=== PATIENT | female | born 1995 | race Caucasian/White ===

== ENCOUNTER 2019-01-17 04:12 | Emergency (ER) | payer OTHER, SELFPAY ==
[2019-01-17 04:16] VITALS: BP 148/94; PULSE 91; RESP 18; TEMP 36.7; O2SAT 99
--- NOTE | 2019-01-17 04:22 | W.ED.GENAD ---
Discharge Plan Disposition Patient Disposition: HOME Condition: Good Discharge Details Chief Complaint: Abd Prob Clinical Impression: Upper abdominal pain Primary Care Provider: BJ SHIELDS ED Provider: Artemio See [place] Meds and New Rx's Prescriptions: New sucralfate [Carafate] 100 mg/mL suspension 10 ml PO QID Qty: 420 RF: 0 Continued norethindrone acetate 5 MG tablet 5 mg PO HS RF: 0 ergocalciferol (vitamin D2) [Vitamin D2] 50,000 UNIT capsule 50,000 units PO .TWICE WEEKLY RF: 0 tramadol 50 MG tablet 50 mg PO TID PRNRF: 0 methylphenidate HCl 10 MG tablet 10 mg PO BID RF: 0 methylphenidate HCl [Ritalin] 20 MG tablet 40 mg PO DAILY RF: 0 celecoxib [Celebrex] 200 mg Capsule 200 mg PO DAILY RF: 0 gabapentin 300 mg Capsule 300 mg PO DAILY RF: 0 famotidine 20 mg Tablet 40 mg PO DAILY RF: 0 esomeprazole magnesium [Nexium] 20 mg Capsule,Delayed Release(Dr/Ec) 40 mg PO DAILY RF: 0 Discharge Instructions Instructions: Abdominal Pain (ED) Additional Instructions: Avoid taking other NSAIDs on top of the Celebrex. Use acetaminophen or your Ultram as needed for joint pain. Continue other medications. Try Carafate over the weekend and follow-up with primary care next week if not significantly better. Return to ED for fever, vomiting, black stool, worsening/persistent abdominal pain Referrals: BJ SHIELDS [Primary Care Provider] - Medical Decision Making Patient with onset of upper abdominal pain within the last couple of hours. Nausea but no vomiting or diarrhea. Mild epigastric tenderness but with distraction has benign abdomen. Previous work-up for abdominal pain including CAT scans, gastric emptying, small bowel follow-through in the past though nothing recently. Reports history of ulcers taking ihki-gvv-[id number] medications as well as chronic use of nonsteroidals. She appears to be in no significant distress. Will try GI cocktail. Patient has some relief with GI cocktail. Still complains of discomfort. Reports that it feels similar to when she had ulcers. States she only came here because the pharmacist told her that if she develops abdominal pain she had to come to ED. Pain has only been present for a couple of hours. She looks to be completely comfortable. She takes PPI and histamine dm already. She is asking if there is anything else that can be done. She reports that she has to take at least the Celebrex because of arthritis. Can add Carafate and see how she does over the weekend. Follow-up with primary care next week. Return to ED for fever, vomiting, black stool, persistent and worsening abdominal pain. HPI General Mode of arrival: ambulatory. Date/Time Provider Initiated Documentation: 01/17/19 04:20. Limitations to Documentation: no limitations. Information obtained by: patient, RN notes reviewed and old records reviewed. HPI Narrative: Patient presents to the ED with complaint of upper abdominal pain that started a few hours ago. She has nausea but no vomiting or diarrhea. She had no fever that she is aware of. She takes Celebrex on a regular basis and has been taking it for some time. She reports history of ulcers for which she takes wqve-jfl-txjnoqc medication. She took Aleve last night as well because of a flareup of her knee pain. She reports that the pharmacist told her because she was taking Celebrex if she did take Aleve and developed abdominal pain she should come to the emergency department. She has a history of abdominal problems and chronic pain. She does report trying some Tums. She denies having chest pain or difficulty breathing. Related Data Home Medications Medication Instructions Recorded Confirmed norethindrone acetate 5 mg PO HS 03/15/13 01/17/19 ergocalciferol (vitamin D2) 50,000 units PO .TWICE WEEKLY 12/20/15 01/17/19 [Vitamin D2] methylphenidate HCl 10 mg PO BID 08/20/17 01/17/19 methylphenidate HCl [Ritalin] 40 mg PO DAILY 08/20/17 01/17/19 tramadol 50 mg PO TID PRN 03/29/18 01/17/19 celecoxib [Celebrex] 200 mg PO DAILY 01/17/19 01/17/19 esomeprazole magnesium [Nexium] 40 mg PO DAILY 01/17/19 01/17/19 famotidine 40 mg PO DAILY 01/17/19 01/17/19 gabapentin 300 mg PO DAILY 01/17/19 01/17/19 sucralfate [Carafate] 10 ml PO QID #420 ml 01/17/19 Previous Rx's Medication Instructions Recorded sucralfate [Carafate] 10 ml PO QID #420 ml 01/17/19 Allergies Allergy/AdvReac Type Severity Reaction Status Date / Time sumatriptan [From Imitrex] Allergy Intermediate arm,shoulder Unverified 04/01/18 06:58 pain-head stinging zolpidem tartrate Allergy Intermediate felt Unverified 04/01/18 06:58 [From Ambien] intoxicated cefaclor [From Ceclor] Allergy Unknown unknown Unverified 04/01/18 06:58 bupropion AdvReac Intermediate Other (See Verified 04/01/18 07:04 Comment) amoxicillin trihydrate AdvReac Mild Diarrhea Unverified 04/01/18 06:58 [From Augmentin] potassium clavulanate AdvReac Mild Diarrhea Unverified 04/01/18 06:58 [From Augmentin] General Stated Complaint: Abd Prob KARLO: 3 Review of Systems Review of Systems As documented in HPI otherwise negative as below. Const: no fever, chills, weakness Resp: no cough, SOB, pleuritic pain CV: no CP, diaphoresis, edema, syncope GI: positive abdominal pain, nausea; no vomiting, diarrhea Neuro: no headache, numbness, focal weakness, confusion PFSH Medical History GERD (gastroesophageal reflux disease) (Chronic) Chronic low back pain Depression Endometriosis Lactose intolerance Posttraumatic stress disorder Primary fibromyalgia syndrome Vitamin D deficiency Surgical History Arthroplasty of knee Colonoscopy - MAC Diagnostic Laproscopy Tonsillectomy and adenoidectomy Family History Mother Personal history of malignant neoplasm Social History Smoking/Tobacco Use Status: Current every day Tobacco Type: cigarettes Alcohol Intake: never Drug use: Never Substance use type: does not use Do you feel safe at home: Yes Do you feel safe in your relationship?: Yes Exam Narrative Exam Narrative: Vitals: afebrile, elevated blood pressure Const: WDWN female in NAD. HEENT: NC/AT. Normal facial exam. Eyes: Normal conjunctiva and sclera. Neck: Supple. Trachea midline. Lungs: Normal respiratory effort. Lungs are clear. Cor: RRR without murmur/gallop. Good radial pulses. GI: Soft and non-distended. Mild epigastric tenderness without guarding or rebound. No RUQ tenderness. No tenderness with distraction. Neuro: A+O x 3. CN grossly in tact. Good strength and no focal deficit. Course Vital Signs Temperature 98.1 F 01/17/19 04:16 Pulse 91 H 01/17/19 04:16 Respiratory Rate 18 01/17/19 04:16 Blood Pressure 148/94 H 01/17/19 04:16 Pulse Oximetry 99 01/17/19 04:16 Temperature 98.1 F 01/17/19 04:16 Temperature Source Tympanic 01/17/19 04:16 Pulse 91 H 01/17/19 04:16 Respiratory Rate 18 01/17/19 04:16 Respiratory Effort 01/17/19 04:20 Blood Pressure 148/94 H 01/17/19 04:16 Blood Pressure Position Sitting 01/17/19 04:16 Pulse Oximetry 99 01/17/19 04:16 Oxygen Delivery Method Room Air 01/17/19 04:16 Oxygen Flow Rate 0 01/17/19 04:16 Pain Level 7 01/17/19 04:16
--- NOTE | 2019-01-17 04:25 | ED.GENADUL_ITS ---
Discharge Plan Disposition Patient Disposition: HOME Condition: Good Discharge Details Chief Complaint: Abd Prob Clinical Impression: Upper abdominal pain Primary Care Provider: BJ SHIELDS ED Provider: Artemio See [place] Meds and New Rx's Prescriptions: New sucralfate [Carafate] 100 mg/mL suspension 10 ml PO QID Qty: 420 RF: 0 Continued norethindrone acetate 5 MG tablet 5 mg PO HS RF: 0 ergocalciferol (vitamin D2) [Vitamin D2] 50,000 UNIT capsule 50,000 units PO .TWICE WEEKLY RF: 0 tramadol 50 MG tablet 50 mg PO TID PRNRF: 0 methylphenidate HCl 10 MG tablet 10 mg PO BID RF: 0 methylphenidate HCl [Ritalin] 20 MG tablet 40 mg PO DAILY RF: 0 celecoxib [Celebrex] 200 mg Capsule 200 mg PO DAILY RF: 0 gabapentin 300 mg Capsule 300 mg PO DAILY RF: 0 famotidine 20 mg Tablet 40 mg PO DAILY RF: 0 esomeprazole magnesium [Nexium] 20 mg Capsule,Delayed Release(Dr/Ec) 40 mg PO DAILY RF: 0 Discharge Instructions Instructions: Abdominal Pain (ED) Additional Instructions: Avoid taking other NSAIDs on top of the Celebrex. Use acetaminophen or your Ultram as needed for joint pain. Continue other medications. Try Carafate over the weekend and follow-up with primary care next week if not significantly better. Return to ED for fever, vomiting, black stool, worsening/persistent abdominal pain Referrals: BJ SHIELDS [Primary Care Provider] - Medical Decision Making Patient with onset of upper abdominal pain within the last couple of hours. Nausea but no vomiting or diarrhea. Mild epigastric tenderness but with d istraction has benign abdomen. Previous work-up for abdominal pain including CAT scans, gastric emptying, small bowel follow-through in the past though nothing recently. Reports history of ulcers taking hhxj-nep-tjcncge medications as well as chronic use of nonsteroidals. She appears to be in no significant distress. Will try GI cocktail. Patient has some relief with GI cocktail. Still complains of discomfort. Reports that it feels similar to when she had ulcers. States she only came here because the pharmacist told her that if she develops abdominal pain she had to come to ED. Pain has only been present for a couple of hours. She looks to be completely comfortable. She takes PPI and histamine dm already. She is asking if there is anything else that can be done. She reports that she has to take at least the Celebrex because of arthritis. Can add Carafate and see how she does over the weekend. Follow-up with primary care next week. Return to ED for fever, vomiting, black stool, persistent and worsening abdominal pain. HPI General Mode of arrival: ambulatory . Date/Time Provider Initiated Documentation: 01/17/19 04:20 . Limitations to Documentation: no limitations . Information obtained by: patient, RN notes reviewed and old records reviewed . HPI Narrative: Patient presents to the ED with complaint of upper abdominal pain that started a few hours ago. She has nausea but no vomiting or diarrhea. She had no fever that she is aware of. She takes Celebrex on a regular basis and has been taking it for some time. She reports history of ulcers for which she takes xsuh-lka-bcaiovw medication. She took Aleve last night as well because of a flareup of her knee pain. She reports that the pharmacist told her because she was taking Celebrex if she did take Aleve and developed abdominal pain she should come to the emergency department. She has a history of abdominal problems and chronic pain. She does report trying some Tums. She denies having chest pain or difficulty breathing. Related Data Home Medications Medication Instructions Recorded Confirmed norethindrone acetate 5 mg PO HS 03/15/13 01/17/19 ergocalciferol (vitamin D2) 50,000 units PO .TWICE WEEKLY 12/20/15 01/17/19 [Vitamin D2] methylphenidate HCl 10 mg PO BID 08/20/17 01/17/19 methylphenidate HCl [Ritalin] 40 mg PO DAILY 08/20/17 01/17/19 tramadol 50 mg PO TID PRN 03/29/18 01/17/19 celecoxib [Celebrex] 200 mg PO DAILY 01/17/19 01/17/19 esomeprazole magnesium [Nexium] 40 mg PO DAILY 01/17/19 01/17/19 famotidine 40 mg PO DAILY 01/17/19 01/17/19 gabapentin 300 mg PO DAILY 01/17/19 01/17/19 sucralfate [Carafate] 10 ml PO QID #420 ml 01/17/19 Previous Rx's Medication Instructions Recorded sucralfate [Carafate] 10 ml PO QID #420 ml 01/17/19 Allergies Allergy/AdvReac Type Severity Reaction Status Date / Time sumatriptan [From Imitrex] Allergy Intermediate arm,shoulder Unverified 04/01/18 06:58 pain-head stinging zolpidem tartrate Allergy Intermediate felt Unverified 04/01/18 06:58 [From Ambien] intoxicated cefaclor [From Ceclor] Allergy Unknown unknown Unverified 04/01/18 06:58 bupropion AdvReac Intermediate Other (See Verified 04/01/18 07:04 Comment) amoxicillin trihydrate AdvReac Mild Diarrhea Unverified 04/01/18 06:58 [From Augmentin] potassium clavulanate AdvReac Mild Diarrhea Unverified 04/01/18 06:58 [From Augmentin] General Stated Complaint: Abd Prob KARLO: 3 Review of Systems Review of Systems As documented in HPI otherwise negative as below. Const: no fever, chills, weakness Resp: no cough, SOB, pleuritic pain CV: no CP, diaphoresis, edema, syncope GI: positive abdominal pain, nausea; no vomiting, diarrhea Neuro: no headache, numbness, focal weakness, confusion PFSH Medical History GERD (gastroesophageal reflux disease) (Chronic) Chronic low back pain Depression Endometriosis Lactose intolerance Posttraumatic stress disorder Primary fibromyalgia syndrome Vitamin D deficiency Surgical History Arthroplasty of knee Colonoscopy - MAC Diagnostic Laproscopy Tonsillectomy and adenoidectomy Family History Mother Personal history of malignant neoplasm Social History Smoking/Tobacco Use Status: Current every day Tobacco Type: cigarettes Alcohol Intake: never Drug use: Never Substance use type: does not use Do you feel safe at home: Yes Do you feel safe in your relationship?: Yes Exam Narrative Exam Narrative: Vitals: afebrile, elevated blood pressure Const: WDWN female in NAD. HEENT: NC/AT. Normal facial exam. Eyes: Normal conjunctiva and sclera. Neck: Supple. Trachea midline. Lungs: Normal respiratory effort. Lungs are clear. Cor: RRR without murmur/gallop. Good radial pulses. GI: Soft and non-distended. Mild epigastric tenderness without guarding or rebound. No RUQ tenderness. No tenderness with distraction. Neuro: A+O x 3. CN grossly in tact. Good strength and no focal deficit. Course Vital Signs Temperature 98.1 F 01/17/19 04:16 Pulse 91 H 01/17/19 04:16 Respiratory Rate 18 01/17/19 04:16 Blood Pressure 148/94 H 01/17/19 04:16 Pulse Oximetry 99 01/17/19 04:16 Temperature 98.1 F 01/17/19 04:16 Temperature Source Tympanic 01/17/19 04:16 Pulse 91 H 01/17/19 04:16 Respiratory Rate 18 01/17/19 04:16 Respiratory Effort 01/17/19 04:20 Blood Pressure 148/94 H 01/17/19 04:16 Blood Pressure Position Sitting 01/17/19 04:16 Pulse Oximetry 99 01/17/19 04:16 Oxygen Delivery Method Room Air 01/17/19 04:16 Oxygen Flow Rate 0 01/17/19 04:16 Pain Level 7 01/17/19 04:16
[2019-01-17 05:09] VITALS: BP 148/94; PULSE 91; RESP 18; O2SAT 99
== END 2019-01-17 05:09 | disposition home or self-care (01) ==
PROVIDERS: Emergency Provider Emergency Medicine; PCP Internal Medicine
DX: R10.10 Upper abdominal pain, unspecified (principal); R11.0 Nausea
CPT/HCPCS: 99283

== ENCOUNTER 2019-05-09 15:01 | Inpatient (IN) | payer OTHER, SELFPAY ==
[2019-05-09 15:04] VITALS: BP 123/83; PULSE 94; RESP 16; TEMP 36.4; O2SAT 99
[2019-05-09 16:10] LABS: Bilirubin Negative (Negative); Blood Moderate (Negative); Clarity Clear (Clear); Glucose Negative (Negative); Ketones 40 mg/dL (Negative); Leukocyte Esterase Negative (Negative); Nitrite Negative (Negative); Specific Gravity 1.015 (1.005-1.025); Urobilinogen 0.2 EU/dL (Up TO 0.2)
[2019-05-09 16:12] LABS: HCT 42.3 % (36.0-46.0); HGB 14.6 g/dL (12.0-15.5); Mean Corp. HGB Concentration 34.5 g/dL (32.0-36.0); Mean Corpuscular Hemoglobin 32.2 pg (27.0-33.0); Mean Corpuscular Volume 93.4 fL (80-95); Mean Platelet Volume 11.2 fL (8.0-11.0); Platelet Count 287 x1000/uL (130-400); RBC 4.53 m/cumm (4.00-5.20); RBC Distribution Width 12.6 % (11.7-14.6); White Blood Cell Count 18.05 k/cumm (4.4-10.8)
[2019-05-09 16:18] LABS: Bacteria Rare HPF (Negative); C & S Indicated? No; Casts Negative LPF (Negative); Crystals Negative HPF (Negative); Epithelial Cells Rare HPF (Negative); Mucus Negative (Negative); Other Cells Negative (Negative); WBC Negative HPF (0-5)
[2019-05-09 16:25] LABS: ALT 26 U/L (14-59); AST 16 U/L (15-37); Albumin 4.2 g/dL (3.4-5.0); Alkaline Phosphatase 60 U/L (46-116); Anion Gap 10.1 mmol/L (3-11); BUN 8 mg/dL (7-18); Bilirubin, Total 0.4 mg/dL (0.2-1.0); CO2 26.9 mmol/L (21.0-32.0); CREATININE 0.79 mg/dL (0.55-1.02); Calcium 9.1 mg/dL (8.5-10.1); Chloride 102 mmol/L (98-107); Glucose 86 mg/dL (70-100); Potassium 3.4 mmol/L (3.5-5.1); Sodium 139 mmol/L (136-145); Total Protein 8.1 g/dL (6.4-8.2)
--- NOTE | 2019-05-09 16:25 | DI.CT_ITS ---
SYMPTOM/DIAGNOSIS: ABD PAIN ABDOMEN AND PELVIC CT: CT examination of the abdomen and pelvis was performed with a bolus infusion of 79 cc's of Omnipaque 350 and ingestion of dilute barium. Images obtained through the lung bases are unremarkable. Liver, spleen and pancreas appear intact. Gallbladder and bile ducts are unremarkable. Adrenals and kidneys are unremarkable with incidental apparent small left renal cysts. No urinary tract obstruction. Tiny non obstructing left renal calculus may be present. Abdominal aorta is of normal diameter and no major vascular abnormality is seen. No abdominal or pelvic adenopathy. No significant abdominal wall hernia is seen. STERILIZATION TECH structures appear intact. No evidence of appendicitis. The terminal ileum appears normal. There is marked edema of the wall of the colon from mid transverse colon to the rectum. The findings are suggestive of colitis, of uncertain etiology. Ulcerative colitis not excluded with the absence of skip lesions noted. CONCLUSION: Findings consistent with colitis, no evidence of perforation or obstruction.
[2019-05-09] MEDS: Ondansetron 4 MG/2 ML VIAL IVP ×2 (16:40→22:58)
[2019-05-09 16:48] LABS: Lipase 152 U/L (73-393)
[2019-05-09] MEDS: Omnipaque 350 MG/ML 100 ML BTL IJ (16:58)
[2019-05-09] MEDS: ACETAMINOPHEN 1,000 MG/100 ML BTL 400 MG IVPB (17:00)
--- NOTE | 2019-05-09 17:07 | W.ED.GENAD ---
Discharge Plan Discharge Details Chief Complaint: Abd Prob Admit Date/Time: 05/09/19 19:07 Admit Provider: Maury Petty Attending Provider: Maury Petty Primary Care Provider: Nora Wisdom ED Provider: Rhoda Doty Medical Decision Making Patient presents for 4 days of abdominal pain. Patient reports escalation of abdominal pain associated with stool changes specifically diarrhea associated with blood. Patient reports 2 days of bloody bowel movements. Patient does report mild decrease in blood noted today. Patient reports mild fatigue present. Patient is drinking by mouth. On exam patient does have diffuse abdominal pain. She does have a history of endometriosis for which she has been managed with control pills. Patient does report noncompliance with her control pills as well as narcolepsy medication. On exam patient is noted to have an elevated white count of 18,000. Patient also noted to have moderate to severe colitis. I did discuss this with surgeon on-call who does feel this is mostly medical complaint and unlikely to be a surgical issue. I spoke with the hospitalist regarding this case for consideration for admission for management of inflammatory versus infectious colitis. Likely patient will ultimately need outpatient follow-up with GI specialist. Stool cultures ordered by the hospitalist. I did offer this patient did admission to the hospital versus discharge home for attempted oral management however given patient's elevated white count,abdominal exam and preference we will keep patient in the hospital for colitis management. HPI General Date/Time Provider Initiated Documentation: 05/09/19 15:14. HPI Narrative: Patient presents for 4 days of abdominal pain. Patient reports began as a mild abdominal pain in the lower abdomen which is now escalated over the last 4 days worsening today. Denies radiation of pain. Reports fairly diffuse pain now more localized in the lower abdomen bilaterally. Patient reports associated with mild nausea. No vomiting. Patient does report diarrhea x2 some blood noted in the bowel movement increased yesterday less than today. Patient does report mild fatigue but does have a history of narcolepsy and is noncompliant with her medication today. Patient also has a history of endometriosis for which she has had surgery approximately 10 years ago and is chronically on control pills to manage. Patient denies vaginal discharge or bleeding. Patient denies changes in urination, specifically denies dysuria or hematuria. Patient does report mild urgency. Patient denies headache, dizziness. Patient was to see her PCP today but waited so long and they are behind therefore she came to the emergency room. Related Data Home Medications Medication Instructions Recorded Confirmed norethindrone acetate 5 mg PO HS 03/15/13 05/09/19 ergocalciferol (vitamin D2) 50,000 units PO .TWICE WEEKLY 12/20/15 05/09/19 [Vitamin D2] methylphenidate HCl 10 mg PO BID 08/20/17 05/09/19 methylphenidate HCl [Ritalin] 40 mg PO DAILY 08/20/17 05/09/19 tramadol 50 mg PO TID PRN 03/29/18 05/09/19 celecoxib [Celebrex] 200 mg PO DAILY 01/17/19 01/17/19 esomeprazole magnesium [Nexium] 40 mg PO BID 01/17/19 05/09/19 famotidine 40 mg PO BID 01/17/19 05/09/19 gabapentin 300 mg PO HS 01/17/19 05/09/19 meloxicam 7.5 mg PO HS 05/09/19 05/09/19 Allergies Allergy/AdvReac Type Severity Reaction Status Date / Time sumatriptan [From Imitrex] Allergy Intermediate arm,shoulder Unverified 05/09/19 15:08 pain-head stinging zolpidem tartrate Allergy Intermediate felt Unverified 05/09/19 15:08 [From Ambien] intoxicated cefaclor [From Ceclor] Allergy Unknown unknown Unverified 05/09/19 15:08 bupropion AdvReac Intermediate Other (See Verified 05/09/19 15:08 Comment) amoxicillin trihydrate AdvReac Mild Diarrhea Unverified 05/09/19 15:08 [From Augmentin] potassium clavulanate AdvReac Mild Diarrhea Unverified 05/09/19 15:08 [From Augmentin] General Stated Complaint: Abd Prob KARLO: 3 Review of Systems Review of Systems CONSTITUTIONAL: The patient denies fevers, chills. EYES: Denies vision changes, blurry vision, or eye pain. ENT: Denies hearing changes, tinnitus, vertigo, sore throat. CARDIAC: Denies chest pain, SOB. RESPIRATORY: Denies cough, sputum. Denies difficulty breathing. GASTROINTESTINAL: Moderate abdominal pain, mild diarrhea, mild nausea. GENITOURINARY: Denies dysuria, or frequency of urination. MUSCULOSKELETAL: Denies Joint pain, gait changes. NEUROLOGIC: Denies headaches, Denies focal weakness. Denies numbness. INTEGUMENT: Denies rashes. PSYCHIATRIC: Denies behavior changes. Denies anxiety or depression. ENDOCRINOLOGY: Denies fatigue. PSYCHIATRY: Denies depression, agitation or anxiety [facility] Medical History Chronic low back pain Depression Endometriosis GERD (gastroesophageal reflux disease) (Chronic) Lactose intolerance Posttraumatic stress disorder Primary fibromyalgia syndrome Vitamin D deficiency Surgical History Arthroplasty of knee Colonoscopy - MAC Diagnostic Laproscopy Tonsillectomy and adenoidectomy Family History Mother Personal history of malignant neoplasm Social History Smoking/Tobacco Use Status: Current every day Tobacco Type: cigarettes Alcohol Intake: never Drug use: Occasionally Substance use type: marijuana Do you feel safe at home: Yes Do you feel safe in your relationship?: Yes Exam Narrative Exam Narrative: CONST: Healthy appearing patient, in no acute distress. Well hydrated. Alert and alert. HENMT: Head nomocephalic, normal to inspection. Atraumatic. Hearing grossly normal. EYES: General normal appearance. Alignment normal. Eyelids normal. Conjunctiva normal. NECK: Normal visual inspection. FROM. Trachea midline. No Midline tenderness. CHEST: Normal insepection of the chest. AB: Patient with abdominal tenderness noted diffuse, moderate tenderness in lower abdomen.. No obvious guarding or distention. Patient does have bowel sounds present in all 4 quadrants. RESP: Normal respiratory effort. Speaking full sentences. No cough. No audible wheezing. No retractions. CARDIO: No JVD. MUSCULOSKELETAL: Normal Gait. FROM of all extremities. SKIN: Normal. Dry. No rashes. NEURO: Alert and awake. Speech clear. PSYCH: Normal affect. Cooperative. GI Inspection: non-distended and no obesity Palpation: soft, no guarding, not rigid and tender Auscultation: normal bowel sounds Course Vital Signs Temperature 36.4 C L 05/09/19 15:04 Pulse 94 H 05/09/19 15:04 Respiratory Rate 16 05/09/19 15:04 Blood Pressure 123/83 05/09/19 15:04 Pulse Oximetry 99 05/09/19 15:04 Temperature 36.4 C L 05/09/19 15:04 Temperature Source Temporal Artery Scan 05/09/19 15:04 Pulse 94 H 05/09/19 15:04 Respiratory Rate 16 05/09/19 15:04 Respiratory Effort Non-Labored 05/09/19 15:07 Blood Pressure 123/83 05/09/19 15:04 Blood Pressure Position Sitting 05/09/19 15:04 Pulse Oximetry 99 05/09/19 15:04 Oxygen Delivery Method Room Air 05/09/19 15:04 Oxygen Flow Rate 0 05/09/19 15:04 Pain Level 8 05/09/19 15:04 Lab/Test Results Lab/Test Results: Laboratory Tests Range/Units 05/09/19 05/09/19 05/09/19 15:18 15:18 15:18 WBC (4.4-10.8) k/cumm 18.05 H RBC (4.00-5.20) m/cumm 4.53 Hgb (12.0-15.5) g/dL 14.6 Hct (36.0-46.0) % 42.3 MCV (80-95) fL 93.4 MCH (27.0-33.0) pg 32.2 MCHC (32.0-36.0) g/dL 34.5 RDW (11.7-14.6) % 12.6 Plt Count (130-400) x1000/uL 287 MPV (8.0-11.0) fL 11.2 H PT (9.3-11.0) sec 10.0 INR (0.9-1.1) 1.0 APTT (21.0-31.4) sec 26.0 Sodium (136-145) mmol/L 139 Potassium (3.5-5.1) mmol/L 3.4 L Chloride (98-107) mmol/L 102 Carbon Dioxide (21.0-32.0) mmol/L 26.9 Anion Gap (3-11) mmol/L 10.1 BUN (7-18) mg/dL 8 Creatinine (0.55-1.02) mg/dL 0.79 Estimated GFR/1.73 m2 (mL/min/1.73m2) >= 60.00 Glucose (70-100) mg/dL 86 Calcium (8.5-10.1) mg/dL 9.1 Total Bilirubin (0.2-1.0) mg/dL 0.4 AST (15-37) U/L 16 ALT (14-59) U/L 26 Alkaline Phosphatase (46-116) U/L 60 Total Protein (6.4-8.2) g/dL 8.1 Albumin (3.4-5.0) g/dL 4.2 Lipase (73-393) U/L Urine Color (Yellow) Urine Clarity (Clear) Urine pH (5-8) Ur Specific [place] (1.005-1.025) Urine Protein (Negative) mg/dL Urine Ketones (Negative) mg/dL Urine Blood (Negative) Urine Nitrite (Negative) Urine Bilirubin (Negative) Urine Urobilinogen (Up TO 0.2) EU/dL Ur Leukocyte Esterase (Negative) Urine RBC (0-2) Urine WBC (0-5) HPF Ur Epithelial Cells (Negative) HPF Urine Crystals (Negative) HPF Urine Bacteria (Negative) HPF Urine Casts (Negative) LPF Urine Mucus (Negative) Urine Other (Negative) Ur Culture Indicated? Urine Glucose (Negative) mg/dL Range/Units 05/09/19 05/09/19 15:18 15:20 WBC (4.4-10.8) k/cumm RBC (4.00-5.20) m/cumm Hgb (12.0-15.5) g/dL Hct (36.0-46.0) % MCV (80-95) fL MCH (27.0-33.0) pg MCHC (32.0-36.0) g/dL RDW (11.7-14.6) % Plt Count (130-400) x1000/uL MPV (8.0-11.0) fL PT (9.3-11.0) sec INR (0.9-1.1) APTT (21.0-31.4) sec Sodium (136-145) mmol/L Potassium (3.5-5.1) mmol/L Chloride (98-107) mmol/L Carbon Dioxide (21.0-32.0) mmol/L Anion Gap (3-11) mmol/L BUN (7-18) mg/dL Creatinine (0.55-1.02) mg/dL Estimated GFR/1.73 m2 (mL/min/1.73m2) Glucose (70-100) mg/dL Calcium (8.5-10.1) mg/dL Total Bilirubin (0.2-1.0) mg/dL AST (15-37) U/L ALT (14-59) U/L Alkaline Phosphatase (46-116) U/L Total Protein (6.4-8.2) g/dL Albumin (3.4-5.0) g/dL Lipase (73-393) U/L 152 Urine Color (Yellow) Yellow Urine Clarity (Clear) Clear Urine pH (5-8) 7.0 Ur Specific [place] (1.005-1.025) 1.015 Urine Protein (Negative) mg/dL Negative Urine Ketones (Negative) mg/dL 40 H Urine Blood (Negative) Moderate H Urine Nitrite (Negative) Negative Urine Bilirubin (Negative) Negative Urine Urobilinogen (Up TO 0.2) EU/dL 0.2 Ur Leukocyte Esterase (Negative) Negative Urine RBC (0-2) 5-10 H Urine WBC (0-5) HPF Negative Ur Epithelial Cells (Negative) HPF Rare Urine Crystals (Negative) HPF Negative Urine Bacteria (Negative) HPF Rare Urine Casts (Negative) LPF Negative Urine Mucus (Negative) Negative Urine Other (Negative) Negative Ur Culture Indicated? No Urine Glucose (Negative) mg/dL Negative POC Urine Test Start: 05/09/19 15:36 Freq: Status: Complete Protocol: Document 05/09/19 15:36 AL (Rec: 05/09/19 15:37 AL [id number]) Test(Urine)-POC POC- Test(urine) Negative POC- Test(urine) Negative
--- NOTE | 2019-05-09 17:15 | DI.VRAD_ITS ---
EXAM: CT Abdomen and Pelvis With Contrast EXAM DATE/TIME: 05/09/2019 4:26 PM CLINICAL HISTORY: 23 years old, female; Localized; Lower; Patient HX: Abdominal pain; Per PT: Below belly button TECHNIQUE: Imaging protocol: Computed tomography of the abdomen and pelvis with intravenous contrast. COMPARISON: CT ABD PELVIS WITH CONTRAST 08/20/2017 9:56 AM FINDINGS: Liver: Normal. No mass. Gallbladder and bile ducts: Probable gallstone, new. Pancreas: Normal. No ductal dilation. Spleen: Normal. No splenomegaly. Adrenals: Normal. No mass. Kidneys and ureters: Left renal cyst again noted. Stomach and bowel: There is wall edema diffusely involving the mid transverse colon to the rectum. There is mild adjacent inflammatory change. Appendix: No evidence of appendicitis. Intraperitoneal space: Unremarkable. No free air. No significant fluid collection. Vasculature: Unremarkable. No abdominal aortic aneurysm. Lymph nodes: Unremarkable. No enlarged lymph nodes. Bladder: The bladder is empty. Reproductive: Unremarkable as visualized. Bones/joints: Unremarkable. No acute fracture. Soft tissues: Unremarkable. IMPRESSION: Moderate to severe left-sided colitis. COMMENT: Preliminary interpretation is based on receipt of 261 image(s). A final report will be issued subsequently. Dictated and Authenticated by: Jesusita Gonzalez MD. Ordering:SAL Duong MD
--- NOTE | 2019-05-09 18:58 | W.PM.HP.N ---
Date of service: 05/09/19 Time of Service: 18:59 Assessment and Plan (1) Colitis: Current visit: Yes Status: Acute Colitis, unclear etiology, major d/dx infectious versus inflammatory. For now will obtain stool studies for bacterrial pathogens and Cdiff, along with Calprotectin and CRP. Will keep NPO, with IVF, consider colonoscopy. Would advise hold on antibiotics or steroids until further data available. History of Present Illness Chief Complaint: blody diarrhea Narrative: 23 female with no prior h/o bowel disease. Here wwith 4 days of bloody diarrhea, several per day, associated with lower abdominal pain. In ER findings of note for leukocytosis and colitis from level of mid transverse colon to rectum.. Patient has not had any stool since arrival. [place] travel or recent antibiotic use. No similar illness at home. Review of Systems Review of Systems All systems reviewed & are unremarkable except as noted in HPI and below PFSH Medical History Chronic low back pain Depression Endometriosis GERD (gastroesophageal reflux disease) (Chronic) Lactose intolerance Posttraumatic stress disorder Primary fibromyalgia syndrome Vitamin D deficiency Surgical History Arthroplasty of knee Colonoscopy - MAC Diagnostic Laproscopy Tonsillectomy and adenoidectomy Family History Mother Personal history of malignant neoplasm Social History Smoking/Tobacco Use Status: Current every day Tobacco Type: cigarettes Alcohol Intake: never Drug use: Occasionally Substance use type: marijuana Do you feel safe at home: Yes Do you feel safe in your relationship?: Yes Meds Home Medications Medication Instructions Recorded Confirmed Type norethindrone acetate 5 mg PO HS 03/15/13 05/09/19 History ergocalciferol (vitamin D2) 50,000 units PO .TWICE WEEKLY 12/20/15 05/09/19 History [Vitamin D2] methylphenidate HCl 10 mg PO BID 08/20/17 05/09/19 History methylphenidate HCl [Ritalin] 40 mg PO DAILY 08/20/17 05/09/19 History tramadol 50 mg PO TID PRN 03/29/18 05/09/19 History celecoxib [Celebrex] 200 mg PO DAILY 01/17/19 01/17/19 History esomeprazole magnesium [Nexium] 40 mg PO DAILY 01/17/19 05/09/19 History famotidine 40 mg PO DAILY 01/17/19 05/09/19 History gabapentin 300 mg PO DAILY 01/17/19 05/09/19 History Allergies Allergy/AdvReac Type Severity Reaction Status Date / Time sumatriptan [From Imitrex] Allergy Intermediate arm,shoulder Unverified 05/09/19 15:08 pain-head stinging zolpidem tartrate Allergy Intermediate felt Unverified 05/09/19 15:08 [From Ambien] intoxicated cefaclor [From Ceclor] Allergy Unknown unknown Unverified 05/09/19 15:08 bupropion AdvReac Intermediate Other (See Verified 05/09/19 15:08 Comment) amoxicillin trihydrate AdvReac Mild Diarrhea Unverified 05/09/19 15:08 [From Augmentin] potassium clavulanate AdvReac Mild Diarrhea Unverified 05/09/19 15:08 [From Augmentin] Exam Narrative Exam Narrative: 123/83, 94, 16, 36.4. HEENT no scleral icteerus; neck supple; lungs clear; heart RRR; abdomen hyperactive bowel sounds, soft, mild-moderate tenderness more or less diffuseely but greaterr in lower quadrants. No rebound. Rectal deferred. Results Labs : 05/09/19 15:18 05/09/19 15:18 Laboratory Results - last 24 hr 05/09/19 05/09/19 05/09/19 15:18 15:18 15:18 WBC 18.05 H RBC 4.53 Hgb 14.6 Hct 42.3 MCV 93.4 MCH 32.2 MCHC 34.5 RDW 12.6 Plt Count 287 MPV 11.2 H PT 10.0 INR 1.0 APTT 26.0 Sodium 139 Potassium 3.4 L Chloride 102 Carbon Dioxide 26.9 Anion Gap 10.1 BUN 8 Creatinine 0.79 Estimated GFR/1.73 m2 >= 60.00 Glucose 86 Calcium 9.1 Total Bilirubin 0.4 AST 16 ALT 26 Alkaline Phosphatase 60 Total Protein 8.1 Albumin 4.2 Lipase Urine Color Urine Clarity Urine pH Ur Specific [place] Urine Protein Urine Ketones Urine Blood Urine Nitrite Urine Bilirubin Urine Urobilinogen Ur Leukocyte Esterase Urine RBC Urine WBC Ur Epithelial Cells Urine Crystals Urine Bacteria Urine Casts Urine Mucus Urine Other Ur Culture Indicated? Urine Glucose 05/09/19 05/09/19 15:18 15:20 WBC RBC Hgb Hct MCV MCH MCHC RDW Plt Count MPV PT INR APTT Sodium Potassium Chloride Carbon Dioxide Anion Gap BUN Creatinine Estimated GFR/1.73 m2 Glucose Calcium Total Bilirubin AST ALT Alkaline Phosphatase Total Protein Albumin Lipase 152 Urine Color Yellow Urine Clarity Clear Urine pH 7.0 Ur Specific [place] 1.015 Urine Protein Negative Urine Ketones 40 H Urine Blood Moderate H Urine Nitrite Negative Urine Bilirubin Negative Urine Urobilinogen 0.2 Ur Leukocyte Esterase Negative Urine RBC 5-10 H Urine WBC Negative Ur Epithelial Cells Rare Urine Crystals Negative Urine Bacteria Rare Urine Casts Negative Urine Mucus Negative Urine Other Negative Ur Culture Indicated? No Urine Glucose Negative Last Vital Signs Temp 36.4 C L 05/09/19 15:04 Pulse 94 H 05/09/19 15:04 Resp 16 05/09/19 15:04 BP 123/83 05/09/19 15:04 Pulse Ox 99 05/09/19 15:04
[2019-05-09 19:35] LABS: C-Reactive Protein 3.06 mg/dL (0.0-0.3)
[2019-05-09 19:55] VITALS: BP 114/75; PULSE 78; RESP 16; TEMP 36.9; O2SAT 98
[2019-05-09] MEDS: Lactated Ringers 1,000 ML 150 ML IV (19:59)
[2019-05-09 20:00] VITALS: O2SAT 99
[2019-05-09 20:31] VITALS: BP 114/75; PULSE 78; RESP 16; TEMP 36.9; O2SAT 98
[2019-05-09] MEDS: Nicotine 21 MG/24 HR PATCH TD (20:51)
[2019-05-09] MEDS: Gabapentin 300 MG CAP PO (22:47)
[2019-05-09] MEDS: Omeprazole 20 MG CAPCR PO (22:47)
[2019-05-09] MEDS: Famotidine 20 MG TAB PO (22:47)
[2019-05-09] MEDS: Norethindrone 5 MG TAB PO (22:50)
[2019-05-09 23:01] VITALS: BP 109/69; PULSE 86; RESP 16; TEMP 36.4; O2SAT 97
[2019-05-10] MEDS: Lactated Ringers 1,000 ML 150 ML IV ×4 (02:56→21:55)
[2019-05-10 07:00] VITALS: BP 110/77; PULSE 101; RESP 16; TEMP 37.3; O2SAT 98
[2019-05-10] MEDS: Nicotine 21 MG/24 HR PATCH TD (07:41)
[2019-05-10] MEDS: Famotidine 20 MG TAB PO ×2 (07:41→20:11)
[2019-05-10] MEDS: Omeprazole 20 MG CAPCR PO ×2 (07:43→20:11)
--- NOTE | 2019-05-10 08:06 | PDOC.CMIN ---
Care Management Initial Assess REASON FOR HOSPITALIZATION:: Colitis PAST MEDICAL HISTORY/PAST SURGICAL HISTORY:: Chronic low back pain, depression, endometriosis, GERD, lactose intolerance, PTSD, primary fibromyalgia syndrome, vitamin D deficiency, TKA, colonoscopy, diagnosic laproscopy, T&A, current everyday tobacco and marijuana smoker PREVIOUS FUNCTIONAL STATUS/SOCIAL/FAMILY SUPPORTS:: Sandra resides in [place], [place] and works radio time sales supervisor at [employer]. She is independent at baseline in the community. CURRENT FUNCTIONAL STATUS:: Sandra is lying flat in bed, sleeping when CM attempts to meet with her. permitted Sandra to rest and did not attempt to wake her. ADVANCE DIRECTIVES:: None on file at [facility]. Has patient been provided with information about the portal?: Yes Did the patient sign up for the portal?: No CODE STATUS:: Full Code INSURANCE COVERAGE / FINANCIAL ISSUES:: [employer] CURRENT HOME/COMMUNITY SERVICES/EQUIPMENT:: No current services or equipement PRIMARY CARE PHYSICIAN:: Nora Wisdom POTENTIAL DISCHARGE NEEDS:: Follow up appointment with PCP. PATIENT/FAMILY EDUCATION NEEDS:: Discussion around current supports, review of discharge instructions, discuss [employer]. ANTICIPATED BARRIERS TO DISCHARGE:: None identified. TRANSPORTATION:: Via private vehicle with family. PLAN:: Sandra will continue to be closely monitored; undetermined if colonoscopy will be recommended at this time. Sandra will return home, with an outpatient follow plan; no additional services anticipated at this time. She will transport via private vehicle with family.
[2019-05-10] MEDS: Ondansetron 4 MG/2 ML VIAL IVP ×3 (08:08→20:40)
[2019-05-10 08:13] LABS: HCT 39.8 % (36.0-46.0); HGB 13.4 g/dL (12.0-15.5); Mean Corp. HGB Concentration 33.7 g/dL (32.0-36.0); Mean Corpuscular Hemoglobin 31.5 pg (27.0-33.0); Mean Corpuscular Volume 93.6 fL (80-95); Mean Platelet Volume 11.2 fL (8.0-11.0); Platelet Count 252 x1000/uL (130-400); RBC 4.25 m/cumm (4.00-5.20); RBC Distribution Width 12.4 % (11.7-14.6); White Blood Cell Count 15.94 k/cumm (4.4-10.8)
[2019-05-10] MEDS: Potassium Chloride 20 MEQ TABCR 40 MEQ PO (09:13)
--- NOTE | 2019-05-10 10:40 | W.PM.PROGNOT ---
Date of Service Date of service: 05/10/19 Time of Service: 10:40 Assessment and Plan (1) Colitis: Start date: 05/10/19 Start time: 11:08 Current visit: Yes Status: Acute 4 day history of diarrhea with blood, no diarrhea since admission. Patient c/o severe abdominal pain. CT revealing left-sided colitis. stool studies pending at this time. Malabsorption with questionable weight loss, a celiac panel was ordered. Cipro and flaygyl started while waiting for stool cultures. IV tylenol for pain with bentyl for abdominal pain. Monitor overnight, consider steroid if antibiotics are not working. (2) Nausea: Start date: 05/10/19 Start time: 11:17 Current visit: Yes Status: Acute with abdominal pain. see above (3) Diarrhea: Start date: 05/10/19 Start time: 11:17 Current visit: Yes Status: Acute Has not had any bm since admission. Stool cultures pending. Continue to monitor. Subjective Patient reports: still having pain Interval history since last seen: Still having LLQ abdominal pain not relieved by anything. Worse with movement. Bentayl for abdominal pain, tylenol IV for pain. CT revealing left sided colitis. Surgery consulted. Colonscopy at age 12 per patient father and diagnosed with endometrosis at the time. Has been on control for 9 years for endometrosis. Wt loss in the last couple of weeks due to loss of sibling contributing to poor appetite. Spine fracture at 10, dx with osteoporosis based on bone density scan. There was initial concern for large amount of wt loss with malabsorption, however patient endorses intentional weight loss initially but has since regained weight. Celiac panel ordered to r/o autoimmune. She denies CP, SOB. Exam Const General: cooperative, healthy appearing and comfortable [facility] Head: normal to inspection Eyes General: appearance normal, both eyes and all related structures Pupils: PERRL Neck Lymphatic: no lymphadenopathy noted and no lymphedema noted Chest Chest: normal inspection of the chest Resp Effort & Inspection: normal respiratory effort and able to speak in complete sentences Auscultation: clear to auscultation bilaterally Cardio Jugular venous pressure: no JVD Rate: regular rate Rhythm: regular rhythm Heart Sounds: S1 normal and S2 normal GI Inspection: normal to inspection Palpation: soft Percussion: normal to percussion Auscultation: normal bowel sounds Skin General skin exam: no rashes or lesions noted Lesions: no lesions Rashes: no rashes Extrem General: normal to inspection and full ROM Objective Objective Clinical Data: Abnormal lab results 05/09/19 05/09/19 05/09/19 Range/Units 15:18 15:18 15:18 WBC 18.05 H (4.4-10.8) k/cumm MPV 11.2 H (8.0-11.0) fL Potassium 3.4 L (3.5-5.1) mmol/L C-Reactive Protein 3.06 H (0.0-0.3) mg/dL Urine Ketones (Negative) mg/dL Urine Blood (Negative) Urine RBC (0-2) 05/09/19 05/10/19 Range/Units 15:20 07:11 WBC 15.94 H (4.4-10.8) k/cumm MPV 11.2 H (8.0-11.0) fL Potassium (3.5-5.1) mmol/L C-Reactive Protein (0.0-0.3) mg/dL Urine Ketones 40 H (Negative) mg/dL Urine Blood Moderate H (Negative) Urine RBC 5-10 H (0-2) Vital Signs Temperature 37.3 C 05/10/19 07:00 Temperature Source Tympanic 05/10/19 07:00 Pulse 101 H 05/10/19 07:00 Pulse Rhythm Regular 05/10/19 07:25 Respiratory Rate 16 05/10/19 07:00 Respiratory Effort Non-Labored 05/10/19 07:25 Respiratory Depth Normal 05/10/19 07:25 Respiratory Pattern Normal 05/10/19 07:25 Blood Pressure 110/77 05/10/19 07:00 Blood Pressure Position Sitting 05/09/19 15:04 Pulse Oximetry 98 05/10/19 07:00 Oxygen Delivery Method Room Air 05/10/19 07:00 Oxygen Flow Rate 0 05/10/19 07:00 Pain Level 9 05/10/19 07:40 Intake & Output 05/09/19 05/09/19 05/10/19 11:59 23:59 11:59 Intake Total 1874 Balance 1874 Weight 55.338 kg Intake: IV 1874 Other: Urine Color Yellow Urine Appearance Clear Urine Odor None Comment Voids in toilet. Flushed. Nurse did not assess void at this time. Voiding Methods Toilet Toilet Laboratory Results WBC 15.94 k/cumm (4.4-10.8) H 05/10/19 07:11 RBC 4.25 m/cumm (4.00-5.20) 05/10/19 07:11 Hgb 13.4 g/dL (12.0-15.5) 05/10/19 07:11 Hct 39.8 % (36.0-46.0) 05/10/19 07:11 MCV 93.6 fL (80-95) 05/10/19 07:11 MCH 31.5 pg (27.0-33.0) 05/10/19 07:11 MCHC 33.7 g/dL (32.0-36.0) 05/10/19 07:11 RDW 12.4 % (11.7-14.6) 05/10/19 07:11 Plt Count 252 x1000/uL (130-400) 05/10/19 07:11 MPV 11.2 fL (8.0-11.0) H 05/10/19 07:11 PT 10.0 sec (9.3-11.0) 05/09/19 15:18 INR 1.0 (0.9-1.1) 05/09/19 15:18 APTT 26.0 sec (21.0-31.4) 05/09/19 15:18 Sodium 139 mmol/L (136-145) 05/09/19 15:18 Potassium 3.4 mmol/L (3.5-5.1) L 05/09/19 15:18 Chloride 102 mmol/L (98-107) 05/09/19 15:18 Carbon Dioxide 26.9 mmol/L (21.0-32.0) 05/09/19 15:18 10.1 mmol/L (3-11) 05/09/19 15:18 BUN 8 mg/dL (7-18) 05/09/19 15:18 0.79 mg/dL (0.55-1.02) 05/09/19 15:18 >= 60.00 (mL/min/1.73m2) 05/09/19 15:18 Glucose 86 mg/dL (70-100) 05/09/19 15:18 Calcium 9.1 mg/dL (8.5-10.1) 05/09/19 15:18 0.4 mg/dL (0.2-1.0) 05/09/19 15:18 AST 16 U/L (15-37) 05/09/19 15:18 ALT 26 U/L (14-59) 05/09/19 15:18 60 U/L (46-116) 05/09/19 15:18 3.06 mg/dL (0.0-0.3) H 05/09/19 15:18 8.1 g/dL (6.4-8.2) 05/09/19 15:18 4.2 g/dL (3.4-5.0) 05/09/19 15:18 152 U/L (73-393) 05/09/19 15:18 Yellow (Yellow) 05/09/19 15:20 Clear (Clear) 05/09/19 15:20 7.0 (5-8) 05/09/19 15:20 Ur Specific [place] 1.015 (1.005-1.025) 05/09/19 15:20 Negative mg/dL (Negative) 05/09/19 15:20 40 mg/dL (Negative) H 05/09/19 15:20 Moderate (Negative) H 05/09/19 15:20 Negative (Negative) 05/09/19 15:20 Negative (Negative) 05/09/19 15:20 0.2 EU/dL (Up TO 0.2) 05/09/19 15:20 Ur Leukocyte Esterase Negative (Negative) 05/09/19 15:20 5-10 (0-2) H 05/09/19 15:20 Negative HPF (0-5) 05/09/19 15:20 Ur Epithelial Cells Rare HPF (Negative) 05/09/19 15:20 Negative HPF (Negative) 05/09/19 15:20 Rare HPF (Negative) 05/09/19 15:20 Negative LPF (Negative) 05/09/19 15:20 Negative (Negative) 05/09/19 15:20 Negative (Negative) 05/09/19 15:20 Ur Culture Indicated? No 05/09/19 15:20 Negative mg/dL (Negative) 05/09/19 15:20 Cancelled 05/10/19 09:03 Cancelled 05/10/19 09:03 HLA Typ Interp Celiac Cancelled 05/10/19 09:03 Cancelled 05/10/19 09:03
[2019-05-10] MEDS: ACETAMINOPHEN 1,000 MG/100 ML BTL 400 MG IVPB ×3 (10:58→23:49)
[2019-05-10] MEDS: Dicyclomine 10 MG CAP PO ×3 (11:20→20:40)
--- NOTE | 2019-05-10 11:29 | PHARADMIT ---
Addendum entered by Catrachita Mesa 05/13/19 16:24: Pharmacy Note Subjective Objective Abdominal Pain 06/12, VS ok, no recent weight, K+ 3.6, Mag 1.5 Assessment Mag 2gram IV x1 and MagOx 400mg po BID ordered Has not been wanting her Ritalin LA 40mg Maybe her APAP order can be changed to oral?-done Pain control: APAP, Ketorolac, Gabapentin, Meloxicam, Oxycodone Mentioned to [place] duplication with Meloxicam and Ketorolac...pt wants Meloxicam at bedtime, Ketorolac changed from q6h prn to q8h prn. Pain not well controlled It has been established that use of proton pump inhibitors (PPIs) is associated with an increased risk of acquiring Clostridium difficile-associated diarrhoea (CDAD). However, it is not known whether the use of PPIs or histamine-2 receptor antagonists (H2RAs) concurrently with CDAD-targeted antibiotic treatment affects clinical response or recurrence rates. Nexium and Famotidine have been dc'd to see if it helps, but then it also doesn't give her stomach protection from NSAIDS, therefore putting Meloxicam on hold Oral Magox dc'd due to increased risk of diarrhea...rec'd IV Mag today, will recheck Mag level 05/14/19 Only one BM yesterday, only one BM today as of this note, oral Vanco day#3 Plan Many med changes, still worried about stomach protection if she uses the prn Ketorolac, so re-address tomorrow Conclusions Acid-suppressing drugs, used by nearly two-thirds of inpatients with CDAD, did not worsen clinical response or recurrence when used concurrently with fidaxomicin or vancomycin. Therefore, development of CDAD does not require discontinuation of anti-acid treatment in patients who have an indication for continuing PPI or H2RA therapy, such as gastro-oesophageal reflux disease and risk of gastrointestinal bleed. Plan was for discharge Sunday Addendum entered by Catrachita Mesa 05/11/19 12:23: VS ok, pain 01/10 (since med adjustments), Mag 1.4 (getting 4gram IV x1), WBC up 17.62 Micro positive for C.Diff, started oral Vancomycin, MD not sure of source, has not been on alot of Anbx lately, could be community acquired Only 3 BM's since admission, heme negative Omeprazole changed to Esomeprazole Pain control (Toradol, Percocet, IV APAP) Adjusted her Methrylphenidate Rx to match what she currently gets (from [facility] pharmacy) Ritalin LA 40mg Qam, Ritalin 10mg po BID prn for excessive sleepiness...pt told MD she has narcolepsy. Patient did not want her 40mg LA dose, wants to sleep Will need colonscopy as outpt has pending send-out labs Original Note: Admission Pharmacy Clinical Review Colitis Code Status Full Code Current Weight 55.338 kg Renally Cleared and Narrow Therapeutic Index Meds CrCl~81ml/min QTc Value / Action Taken BP Control, Fever BP 110/77 Afebrile abdominal pain 04/12 (APAP) Electrolytes reviewed DVT Prophylaxis Opiate Usage / Scheduled Bowel Regimen Ordered none/none Plt/SCr for Heparin / Enoxaparin Plt 252 SCr 0.79 INR for Warfarin H/H stable, WBC/Bands H/H 13.4/39.8 WBC 15.94 Antibiotic appropriateness Cipro/Flagyl by mouth Cultures and Sensitivities none C.Diff pending but no sample yet avail Surgical ABX d/c within 24 hr DM control / Insulin Dosing Heart Failure (Check EF%) (TERA's, B-Block, Diuretics) IV to PO Switch IV APAP to oral? taking oral meds Home Meds Reviewed Home Meds Not Ordered Celebrex, Vit D, Tramadol, Comments Omeprazole/Famotidine Nicotine patch Ritalin ordered incorrectly....pt refused 1st dose, will clarify w/ (Ritalin LA 40mg Qam and Ritalin 10mg BID as needed for residual sleepiness)...mentioned pt has narcolepsy Surgical consult, tests to be done, lab sendouts c/o bloody stool @ home....no BM's recorded yet as inpt (RN states no bowel sounds, last BM 05/09/19 at home)
[2019-05-10] MEDS: Ciprofloxacin 500 MG TAB PO (11:38)
[2019-05-10] MEDS: metroNIDAZOLE 500 MG TAB PO (11:38)
[2019-05-10] MEDS: Normal Saline Flush 10 ML SYR ×4 (13:45→23:38)
[2019-05-10] MEDS: methylPREDNISolone SUCC 125 MG VIAL 60 MG IVP (14:32)
--- NOTE | 2019-05-10 15:47 | SCONE_ITS ---
Date of service: 05/10/19 Time of Service: 10:15 Assessment and Plan (1) Colitis: Current visit: Yes Status: Acute This may be infectious or inflammatory in nature. Stool cultures are pending. If cultures normal, will need colonoscopy at some point. She has had trouble with the prep in the past, so could consider doing the prep while in hospital so treatment for nausea is available. If oral prep not tolerated, an enema is an option to at least allow visualization of the left colon. Can also consider a SBFT which has not been done in the past if IBD is a concern. Will follow. Okay to have clear liquids History of Present Illness Narrative: Patient admitted yesterday with 4 days history of bloody diarrhea and lower abdominal pain. Was found to have thickening of the left colon on CT. No stool since admission so cultures pending. Patient has long history of GI complaints. EGD/colon at age 12 normal. EGD 2014 normal - was also supposed to have colonoscopy but did not tolerate the prep. Abdominal US 2016 normal, gastric emptying [address] abd 2017 normal. Review of Systems Constitutional Denies fatigue and Denies headache(s) Eyes Denies change in vision ENT Denies headache(s) and Denies neck mass Cardiovascular Denies chest pain, Denies edema, Denies palpitations and Denies dyspnea Respiratory Denies cough, Denies dyspnea and Denies wheezing Genitourinary Denies abnormal vaginal bleeding and Denies dysuria Musculoskeletal Denies joint swelling Integumentary/Breasts Denies new lesions and Denies rash Neurologic Denies confusion, Denies headache(s) and Denies focal weakness Psychiatric Reports system reviewed and no additional complaints, except as docu and Denies confusion Endocrine Denies fatigue and Denies palpitations Hematologic/Lymphatic Denies easy bleeding and Denies lymphadenopathy Allergic/Immunologic Denies wheezing [facility] Medical History Chronic low back pain Depression Endometriosis GERD (gastroesophageal reflux disease) (Chronic) Lactose intolerance Posttraumatic stress disorder Primary fibromyalgia syndrome Vitamin D deficiency Surgical History Arthroplasty of knee Colonoscopy - MAC Diagnostic Laproscopy Tonsillectomy and adenoidectomy Family History Mother Personal history of malignant neoplasm Social History Smoking/Tobacco Use Status: Current every day Tobacco Type: cigarettes Alcohol Intake: never Drug use: Occasionally Substance use type: marijuana Do you feel safe at home: Yes Do you feel safe in your relationship?: Yes Exam Const General: healthy appearing Nutritional Appearance: well nourished Orientation: oriented x3 HENMT Head: normal to inspection Eyes Sclera: sclerae normal Pupils: PERRL Neck Neck: no lymphadenopathy Thyroid: thyroid normal Carotids: no bruits Resp Effort & Inspection: normal respiratory effort Auscultation: clear to auscultation bilaterally and no wheezes Cardio Rate: regular rate Rhythm: regular rhythm GI Inspection: non-distended Palpation: soft, no hepatosplenomegaly, no hernias and tender (generalized tenderness but worse LLQ. No peritonitis.) Skin General skin exam: no rashes or lesions noted Neuro General: alert Cognition: normal cognition Extrem General: normal to inspection Psych Affect: normal affect Attitude: cooperative Results Last Vital Signs Temp 99.1 F 05/10/19 07:00 Pulse 101 H 05/10/19 07:00 Resp 16 05/10/19 07:00 BP 110/77 05/10/19 07:00 Pulse Ox 98 05/10/19 07:00 Labs : 05/10/19 07:11 05/09/19 15:18 Laboratory Results - last 24 hr 05/09/19 05/09/19 05/09/19 15:18 15:18 15:18 WBC 18.05 H RBC 4.53 Hgb 14.6 Hct 42.3 MCV 93.4 MCH 32.2 MCHC 34.5 RDW 12.6 Plt Count 287 MPV 11.2 H PT 10.0 INR 1.0 APTT 26.0 Sodium 139 Potassium 3.4 L Chloride 102 Carbon Dioxide 26.9 Anion Gap 10.1 BUN 8 Creatinine 0.79 Estimated GFR/1.73 m2 >= 60.00 Glucose 86 Calcium 9.1 Total Bilirubin 0.4 AST 16 ALT 26 Alkaline Phosphatase 60 C-Reactive Protein Total Protein 8.1 Albumin 4.2 Lipase Urine Color Urine Clarity Urine pH Ur Specific [place] Urine Protein Urine Ketones Urine Blood Urine Nitrite Urine Bilirubin Urine Urobilinogen Ur Leukocyte Esterase Urine RBC Urine WBC Ur Epithelial Cells Urine Crystals Urine Bacteria Urine Casts Urine Mucus Urine Other Ur Culture Indicated? Urine Glucose HLA-DQA1 HLA-DQB1 HLA Typ Interp Celiac HLA Celiac Gene Pairs 05/09/19 05/09/19 05/09/19 15:18 15:18 15:20 WBC RBC Hgb Hct MCV MCH MCHC RDW Plt Count MPV PT INR APTT Sodium Potassium Chloride Carbon Dioxide Anion Gap BUN Creatinine Estimated GFR/1.73 m2 Glucose Calcium Total Bilirubin AST ALT Alkaline Phosphatase C-Reactive Protein 3.06 H Total Protein Albumin Lipase 152 Urine Color Yellow Urine Clarity Clear Urine pH 7.0 Ur Specific [place] 1.015 Urine Protein Negative Urine Ketones 40 H Urine Blood Moderate H Urine Nitrite Negative Urine Bilirubin Negative Urine Urobilinogen 0.2 Ur Leukocyte Esterase Negative Urine RBC 5-10 H Urine WBC Negative Ur Epithelial Cells Rare Urine Crystals Negative Urine Bacteria Rare Urine Casts Negative Urine Mucus Negative Urine Other Negative Ur Culture Indicated? No Urine Glucose Negative HLA-DQA1 HLA-DQB1 HLA Typ Interp Celiac HLA Celiac Gene Pairs 05/10/19 05/10/19 07:11 09:03 WBC 15.94 H RBC 4.25 Hgb 13.4 Hct 39.8 MCV 93.6 MCH 31.5 MCHC 33.7 RDW 12.4 Plt Count 252 MPV 11.2 H PT INR APTT Sodium Potassium Chloride Carbon Dioxide Anion Gap BUN Creatinine Estimated GFR/1.73 m2 Glucose Calcium Total Bilirubin AST ALT Alkaline Phosphatase C-Reactive Protein Total Protein Albumin Lipase Urine Color Urine Clarity Urine pH Ur Specific [place] Urine Protein Urine Ketones Urine Blood Urine Nitrite Urine Bilirubin Urine Urobilinogen Ur Leukocyte Esterase Urine RBC Urine WBC Ur Epithelial Cells Urine Crystals Urine Bacteria Urine Casts Urine Mucus Urine Other Ur Culture Indicated? Urine Glucose HLA-DQA1 Cancelled HLA-DQB1 Cancelled HLA Typ Interp Celiac Cancelled HLA Celiac Gene Pairs Cancelled
[2019-05-10] MEDS: Vancomycin 125 MG CAP PO ×2 (16:10→21:53)
[2019-05-10 16:12] VITALS: BP 109/62; PULSE 98; RESP 16; TEMP 37.6; O2SAT 99
[2019-05-10] MEDS: Ketorolac 30 MG/ML VIAL IVP (20:10)
[2019-05-10] MEDS: Meloxicam 15 MG TAB 7.5 MG PO (21:53)
[2019-05-10] MEDS: Gabapentin 300 MG CAP PO (21:54)
[2019-05-10] MEDS: Norethindrone 5 MG TAB PO (21:54)
[2019-05-10 23:02] VITALS: O2SAT 99
[2019-05-10 23:48] VITALS: BP 124/76; PULSE 85; RESP 16; TEMP 37; O2SAT 98
[2019-05-11] MEDS: Normal Saline Flush 10 ML SYR (00:16)
[2019-05-11] MEDS: Ketorolac 30 MG/ML VIAL IVP ×4 (03:03→20:13)
[2019-05-11] MEDS: Ondansetron 4 MG/2 ML VIAL IVP ×4 (03:03→20:29)
[2019-05-11] MEDS: Vancomycin 125 MG CAP PO ×4 (03:03→22:14)
[2019-05-11] MEDS: Normal Saline Flush 10 ML SYR IVP ×8 (03:04→20:29)
[2019-05-11] MEDS: Lactated Ringers 1,000 ML 150 ML IV ×2 (05:04→10:49)
[2019-05-11] MEDS: ACETAMINOPHEN 1,000 MG/100 ML BTL 400 MG IVPB ×3 (06:07→17:59)
[2019-05-11 07:26] VITALS: BP 120/73; PULSE 99; RESP 18; TEMP 37.3; O2SAT 98
--- NOTE | 2019-05-11 07:51 | CMPROGNOTE_ITS ---
Care Management Progress Note S/O: Sandra was dealing with increased pain when CM attempted to meet with her. She was in the bathroom crying out in pain, MD was aware. Her father was standing outside of the room being supportive. Sandra has struggled with ongoing pain throughout her stay. Per MD, she recently lost a sibling and her and her family are actively grieving her younger brother's loss. CM continues to follow. A: 23 year old female admitted to [facility] 05/09/19 for Colitis P: Sandra continues to be closely monitored, C-diff results positive per MD. Anticipate Sandra will transition to orals, and once her medications are managed she will discharge home with no additional services. CM continues to follow and support discharge planning considerations.
[2019-05-11 08:51] LABS: Abs Immature Grans 0.05 k/cumm (0.0-0.09); HCT 37.5 % (36.0-46.0); HGB 12.7 g/dL (12.0-15.5); Mean Corp. HGB Concentration 33.9 g/dL (32.0-36.0); Mean Corpuscular Hemoglobin 31.2 pg (27.0-33.0); Mean Corpuscular Volume 92.1 fL (80-95); Mean Platelet Volume 10.8 fL (8.0-11.0); Platelet Count 238 x1000/uL (130-400); RBC 4.07 m/cumm (4.00-5.20); White Blood Cell Count 17.62 k/cumm (4.4-10.8)
[2019-05-11 09:01] LABS: BUN 7 mg/dL (7-18); Calcium 7.8 mg/dL (8.5-10.1); Chloride 105 mmol/L (98-107); Glucose 99 mg/dL (70-100); Potassium 3.7 mmol/L (3.5-5.1); Sodium 138 mmol/L (136-145)
[2019-05-11] MEDS: Nicotine 21 MG/24 HR PATCH TD (09:11)
[2019-05-11] MEDS: Famotidine 20 MG TAB PO ×2 (09:12→20:14)
[2019-05-11] MEDS: Dicyclomine 10 MG CAP PO ×4 (09:13→20:14)
[2019-05-11] MEDS: Omeprazole 20 MG CAPCR PO (09:13)
[2019-05-11 09:44] LABS: Magnesium 1.4 mg/dL (1.8-2.4)
[2019-05-11 09:57] LABS: Absolute Neutrophil Count 14.62 k/cumm (1.2-6.7)
[2019-05-11 09:58] LABS: Absolute Lymphocyte Count 0.88 k/cumm (1.2-3.4); Absolute Monocyte Count 1.94 k/cumm (0.11-0.7)
[2019-05-11 10:00] LABS: Diff Comment Manual Differential
[2019-05-11] MEDS: oxyCODONE 5 mg/Acetaminophen 325 mg TAB PO ×3 (10:50→22:13)
--- NOTE | 2019-05-11 11:38 | W.PM.PROGNOT ---
Date of Service Date of service: 05/11/19 Time of Service: 11:39 Assessment and Plan (1) Colitis: Current visit: Yes Status: Acute Stool was positive for C diff Continue antibiotics Colonoscopy not indicated at this point. Please contact the surgical service if any further assistance needed. Subjective Interval history since last seen: Feels slightly better Several loose stools today Tolerated toast Objective Objective Clinical Data: Abnormal lab results 05/11/19 05/11/19 05/11/19 Range/Units 07:56 08:09 08:09 WBC 17.62 H (4.4-10.8) k/cumm Absolute Neutrophils 14.62 H (1.2-6.7) k/cumm Absolute Lymphocytes 0.88 L (1.2-3.4) k/cumm Absolute Monocytes 1.94 H (0.11-0.7) k/cumm Calcium 7.8 L (8.5-10.1) mg/dL Magnesium 1.4 L (1.8-2.4) mg/dL Vital Signs Temperature 99.1 F 05/11/19 07:26 Temperature Source Tympanic 05/11/19 07:26 Pulse 99 H 05/11/19 07:26 Pulse Rhythm Regular 05/11/19 09:11 Respiratory Rate 18 05/11/19 07:26 Respiratory Effort Non-Labored 05/11/19 09:11 Respiratory Depth Normal 05/11/19 09:11 Respiratory Pattern Normal 05/11/19 09:11 Blood Pressure 120/73 05/11/19 07:26 Blood Pressure Position Sitting 05/09/19 15:04 Pulse Oximetry 98 05/11/19 07:26 Oxygen Delivery Method Room Air 05/11/19 07:26 Oxygen Flow Rate 0 05/11/19 07:26 Pain Level 6 05/11/19 10:50 Intake & Output 05/10/19 05/10/19 05/11/19 11:59 23:59 11:59 Intake Total 1974. Output Total 200 / 200 350 / 350 Balance 1974. / 1711. Intake: IV 1974. Oral 250 / 250 Output: Stool 100 / 100 350 / 350 Emesis 100 / 100 Other: Urine Color Yellow Urine Appearance Clear Comment voided in toiles Void in toilet. Flushed. Urine non assessed at this time. Stool Occult Blood Negative Stool Size Moderate Moderate Stool Characteristics Formed Hard Liquid Liquid Emesis Description Clear/Water Voiding Methods Toilet Toilet Laboratory Results WBC 17.62 k/cumm (4.4-10.8) H 05/11/19 08:09 RBC 4.07 m/cumm (4.00-5.20) 05/11/19 08:09 Hgb 12.7 g/dL (12.0-15.5) 05/11/19 08:09 Hct 37.5 % (36.0-46.0) 05/11/19 08:09 MCV 92.1 fL (80-95) 05/11/19 08:09 MCH 31.2 pg (27.0-33.0) 05/11/19 08:09 MCHC 33.9 g/dL (32.0-36.0) 05/11/19 08:09 RDW 12.0 % (11.7-14.6) 05/11/19 08:09 Plt Count 238 x1000/uL (130-400) 05/11/19 08:09 MPV 10.8 fL (8.0-11.0) 05/11/19 08:09 Immature Gran % See Differential 05/11/19 08:09 78.0 05/11/19 08:09 5.0 % 05/11/19 08:09 5.0 05/11/19 08:09 Atypical Lymphs % 0.0 05/11/19 08:09 11.0 05/11/19 08:09 0.0 05/11/19 08:09 0.0 05/11/19 08:09 1.0 % 05/11/19 08:09 Absolute Neutrophils 14.62 k/cumm (1.2-6.7) H 05/11/19 08:09 Absolute Lymphocytes 0.88 k/cumm (1.2-3.4) L 05/11/19 08:09 Absolute Monocytes 1.94 k/cumm (0.11-0.7) H 05/11/19 08:09 Absolute Eosinophils 0.00 k/cumm (0.0-0.7) 05/11/19 08:09 Absolute Basophils 0.00 k/cumm (0.0-0.2) 05/11/19 08:09 Manual differential 05/11/19 08:09 PT 10.0 sec (9.3-11.0) 05/09/19 15:18 INR 1.0 (0.9-1.1) 05/09/19 15:18 APTT 26.0 sec (21.0-31.4) 05/09/19 15:18 Sodium 138 mmol/L (136-145) 05/11/19 08:09 Potassium 3.7 mmol/L (3.5-5.1) 05/11/19 08:09 Chloride 105 mmol/L (98-107) 05/11/19 08:09 Carbon Dioxide 23.0 mmol/L (21.0-32.0) 05/11/19 08:09 10.0 mmol/L (3-11) 05/11/19 08:09 BUN 7 mg/dL (7-18) 05/11/19 08:09 0.60 mg/dL (0.55-1.02) 05/11/19 08:09 >= 60.00 (mL/min/1.73m2) 05/11/19 08:09 Glucose 99 mg/dL (70-100) 05/11/19 08:09 Calcium 7.8 mg/dL (8.5-10.1) L 05/11/19 08:09 Magnesium 1.4 mg/dL (1.8-2.4) L 05/11/19 07:56 0.4 mg/dL (0.2-1.0) 05/09/19 15:18 AST 16 U/L (15-37) 05/09/19 15:18 ALT 26 U/L (14-59) 05/09/19 15:18 60 U/L (46-116) 05/09/19 15:18 3.06 mg/dL (0.0-0.3) H 05/09/19 15:18 8.1 g/dL (6.4-8.2) 05/09/19 15:18 4.2 g/dL (3.4-5.0) 05/09/19 15:18 152 U/L (73-393) 05/09/19 15:18 Yellow (Yellow) 05/09/19 15:20 Clear (Clear) 05/09/19 15:20 7.0 (5-8) 05/09/19 15:20 Ur Specific [place] 1.015 (1.005-1.025) 05/09/19 15:20 Negative mg/dL (Negative) 05/09/19 15:20 40 mg/dL (Negative) H 05/09/19 15:20 Moderate (Negative) H 05/09/19 15:20 Negative (Negative) 05/09/19 15:20 Negative (Negative) 05/09/19 15:20 0.2 EU/dL (Up TO 0.2) 05/09/19 15:20 Ur Leukocyte Esterase Negative (Negative) 05/09/19 15:20 5-10 (0-2) H 05/09/19 15:20 Negative HPF (0-5) 05/09/19 15:20 Ur Epithelial Cells Rare HPF (Negative) 05/09/19 15:20 Negative HPF (Negative) 05/09/19 15:20 Rare HPF (Negative) 05/09/19 15:20 Negative LPF (Negative) 05/09/19 15:20 Negative (Negative) 05/09/19 15:20 Negative (Negative) 05/09/19 15:20 Ur Culture Indicated? No 05/09/19 15:20 Negative mg/dL (Negative) 05/09/19 15:20 Stl C.difficile Tox PCR Cancelled 05/10/19 14:00 Cancelled 05/10/19 09:03 Cancelled 05/10/19 09:03 HLA Typ Interp Celiac Cancelled 05/10/19 09:03 Cancelled 05/10/19 09:03 C.difficile Tox Source Cancelled 05/10/19 14:00
[2019-05-11] MEDS: MAGNESIUM SULFATE 4 GM/100 ML BAG IVPB (12:58)
--- NOTE | 2019-05-11 15:34 | PGE_ITS ---
Date of Service Date of service: 05/11/19 Time of Service: 15:34 Assessment and Plan (1) Colitis: Start date: 05/11/19 Start time: 15:37 Current visit: Yes Status: Acute positive for cdiff. Started on vanco. Pt states multiple bouts of diarrhea. Tolerated soft diet. nauseated at times, continue zofran. pain with palpation, morphine IV dcd and patient started on percocet try to wean to ultram for discharge. Cries out in pain when using BR also on bentyal for spasms which appears effective, IV tylenol and toradol. Recent of 18 y.o brother last week from overdose likely some underlying depression component with pain. Wants to sleep and not take ritilan so she does not have to deal with the pain. (2) Nausea: Start date: 05/11/19 Start time: 15:41 Current visit: Yes Status: Acute with abdominal pain. see above (3) Diarrhea: Start date: 05/11/19 Start time: 15:42 Current visit: Yes Status: Acute positive for cdiff, see above. Subjective Patient reports: other Interval history since last seen: C.Diff positive. Diarrhea worse today, however pain improving except when having BM. started on vanco po. Tolerated soft diet. IVF dcd. Does have nausea continue zofran. Denies CP, SOB, n/v/d Exam Const General: cooperative, healthy appearing and comfortable [facility] Head: normal to inspection Eyes General: appearance normal, both eyes and all related structures Pupils: PERRL Neck Lymphatic: no lymphadenopathy noted and no lymphedema noted Chest Chest: normal inspection of the chest Resp Effort & Inspection: normal respiratory effort and able to speak in complete sentences Auscultation: clear to auscultation bilaterally Cardio Jugular venous pressure: no JVD Rate: regular rate Rhythm: regular rhythm Heart Sounds: S1 normal and S2 normal GI Inspection: normal to inspection Palpation: soft Percussion: normal to percussion Auscultation: normal bowel sounds Other: tender upon palpation to LLQ more than Right Skin General skin exam: no rashes or lesions noted Lesions: no lesions Rashes: no rashes Extrem General: normal to inspection and full ROM Objective Objective Clinical Data: Abnormal lab results 05/11/19 05/11/19 05/11/19 Range/Units 07:56 08:09 08:09 WBC 17.62 H (4.4-10.8) k/cumm Absolute Neutrophils 14.62 H (1.2-6.7) k/cumm Absolute Lymphocytes 0.88 L (1.2-3.4) k/cumm Absolute Monocytes 1.94 H (0.11-0.7) k/cumm Calcium 7.8 L (8.5-10.1) mg/dL Magnesium 1.4 L (1.8-2.4) mg/dL Vital Signs Temperature 37.3 C 05/11/19 07:26 Temperature Source Tympanic 05/11/19 07:26 Pulse 99 H 05/11/19 07:26 Pulse Rhythm Regular 05/11/19 14:35 Respiratory Rate 18 05/11/19 07:26 Respiratory Effort Non-Labored 05/11/19 14:35 Respiratory Depth Normal 05/11/19 14:35 Respiratory Pattern Normal 05/11/19 14:35 Blood Pressure 120/73 05/11/19 07:26 Blood Pressure Position Sitting 05/09/19 15:04 Pulse Oximetry 98 05/11/19 07:26 Oxygen Delivery Method Room Air 05/11/19 07:26 Oxygen Flow Rate 0 05/11/19 07:26 Pain Level 7 05/11/19 15:05 Intake & Output 05/10/19 05/11/19 05/11/19 23:59 11:59 23:59 Intake Total 2310 / 4285 2062.5 / 2362.5 300 / 2362.5 Output Total 200 / 200 350 / 400 50 / 400 Balance 0 / 4085 1712.5 / 1962.5 250 / 1962.5 Intake: IV 2060 / 4035 2062.5 / 2162.5 100 / 2162.5 Oral 250 / 250 200 / 200 Output: Stool 100 / 100 350 / 350 Emesis 100 / 100 50 / 50 Other: Urine Color Yellow Urine Appearance Clear Comment Void in toilet. Flushed. Urine non assessed at this time. Voids in toilet. Flushed. Urine not assessed at this time. Stool Occult Blood Negative Stool Size Moderate Moderate Stool Characteristics Formed Hard Liquid Liquid Emesis Description Clear/Water Clear/Water Voiding Methods Toilet Toilet Laboratory Results WBC 17.62 k/cumm (4.4-10.8) H 05/11/19 08:09 RBC 4.07 m/cumm (4.00-5.20) 05/11/19 08:09 Hgb 12.7 g/dL (12.0-15.5) 05/11/19 08:09 Hct 37.5 % (36.0-46.0) 05/11/19 08:09 MCV 92.1 fL (80-95) 05/11/19 08:09 MCH 31.2 pg (27.0-33.0) 05/11/19 08:09 MCHC 33.9 g/dL (32.0-36.0) 05/11/19 08:09 RDW 12.0 % (11.7-14.6) 05/11/19 08:09 Plt Count 238 x1000/uL (130-400) 05/11/19 08:09 MPV 10.8 fL (8.0-11.0) 05/11/19 08:09 Immature Gran % See Differential 05/11/19 08:09 78.0 05/11/19 08:09 5.0 % 05/11/19 08:09 5.0 05/11/19 08:09 Atypical Lymphs % 0.0 05/11/19 08:09 11.0 05/11/19 08:09 0.0 05/11/19 08:09 0.0 05/11/19 08:09 1.0 % 05/11/19 08:09 Absolute Neutrophils 14.62 k/cumm (1.2-6.7) H 05/11/19 08:09 Absolute Lymphocytes 0.88 k/cumm (1.2-3.4) L 05/11/19 08:09 Absolute Monocytes 1.94 k/cumm (0.11-0.7) H 05/11/19 08:09 Absolute Eosinophils 0.00 k/cumm (0.0-0.7) 05/11/19 08:09 Absolute Basophils 0.00 k/cumm (0.0-0.2) 05/11/19 08:09 Manual differential 05/11/19 08:09 PT 10.0 sec (9.3-11.0) 05/09/19 15:18 INR 1.0 (0.9-1.1) 05/09/19 15:18 APTT 26.0 sec (21.0-31.4) 05/09/19 15:18 Sodium 138 mmol/L (136-145) 05/11/19 08:09 Potassium 3.7 mmol/L (3.5-5.1) 05/11/19 08:09 Chloride 105 mmol/L (98-107) 05/11/19 08:09 Carbon Dioxide 23.0 mmol/L (21.0-32.0) 05/11/19 08:09 10.0 mmol/L (3-11) 05/11/19 08:09 BUN 7 mg/dL (7-18) 05/11/19 08:09 0.60 mg/dL (0.55-1.02) 05/11/19 08:09 >= 60.00 (mL/min/1.73m2) 05/11/19 08:09 Glucose 99 mg/dL (70-100) 05/11/19 08:09 Calcium 7.8 mg/dL (8.5-10.1) L 05/11/19 08:09 Magnesium 1.4 mg/dL (1.8-2.4) L 05/11/19 07:56 0.4 mg/dL (0.2-1.0) 05/09/19 15:18 AST 16 U/L (15-37) 05/09/19 15:18 ALT 26 U/L (14-59) 05/09/19 15:18 60 U/L (46-116) 05/09/19 15:18 3.06 mg/dL (0.0-0.3) H 05/09/19 15:18 8.1 g/dL (6.4-8.2) 05/09/19 15:18 4.2 g/dL (3.4-5.0) 05/09/19 15:18 152 U/L (73-393) 05/09/19 15:18 Yellow (Yellow) 05/09/19 15:20 Clear (Clear) 05/09/19 15:20 7.0 (5-8) 05/09/19 15:20 Ur Specific [place] 1.015 (1.005-1.025) 05/09/19 15:20 Negative mg/dL (Negative) 05/09/19 15:20 40 mg/dL (Negative) H 05/09/19 15:20 Moderate (Negative) H 05/09/19 15:20 Negative (Negative) 05/09/19 15:20 Negative (Negative) 05/09/19 15:20 0.2 EU/dL (Up TO 0.2) 05/09/19 15:20 Ur Leukocyte Esterase Negative (Negative) 05/09/19 15:20 5-10 (0-2) H 05/09/19 15:20 Negative HPF (0-5) 05/09/19 15:20 Ur Epithelial Cells Rare HPF (Negative) 05/09/19 15:20 Negative HPF (Negative) 05/09/19 15:20 Rare HPF (Negative) 05/09/19 15:20 Negative LPF (Negative) 05/09/19 15:20 Negative (Negative) 05/09/19 15:20 Negative (Negative) 05/09/19 15:20 Ur Culture Indicated? No 05/09/19 15:20 Negative mg/dL (Negative) 05/09/19 15:20 Stl C.difficile Tox PCR Cancelled 05/10/19 14:00 Cancelled 05/10/19 09:03 Cancelled 05/10/19 09:03 HLA Typ Interp Celiac Cancelled 05/10/19 09:03 Cancelled 05/10/19 09:03 C.difficile Tox Source Cancelled 05/10/19 14:00
[2019-05-11 16:03] VITALS: BP 112/69; PULSE 92; RESP 17; TEMP 36.8; O2SAT 99
[2019-05-11] MEDS: Esomeprazole 20 MG CAPCR PO (20:14)
[2019-05-11] MEDS: Meloxicam 15 MG TAB 7.5 MG PO (22:14)
[2019-05-11] MEDS: Norethindrone 5 MG TAB PO (22:14)
[2019-05-11] MEDS: Gabapentin 300 MG CAP PO (22:15)
[2019-05-11 23:31] VITALS: BP 101/62; PULSE 86; RESP 18; TEMP 37.1; O2SAT 97
[2019-05-12] MEDS: Normal Saline Flush 10 ML SYR IVP ×9 (00:02→21:52)
[2019-05-12] MEDS: Ondansetron 4 MG/2 ML VIAL IVP ×5 (00:02→20:19)
[2019-05-12] MEDS: ACETAMINOPHEN 1,000 MG/100 ML BTL 400 MG IVPB ×4 (00:03→18:07)
[2019-05-12] MEDS: oxyCODONE 5 mg/Acetaminophen 325 mg TAB PO ×2 (02:00→05:56)
[2019-05-12] MEDS: Ketorolac 30 MG/ML VIAL IVP ×4 (02:57→21:52)
[2019-05-12] MEDS: Vancomycin 125 MG CAP PO ×4 (04:20→21:31)
[2019-05-12 07:02] LABS: Abs Immature Grans 0.02 k/cumm (0.0-0.09); Absolute Basophil Count 0.03 k/cumm (0.0-0.2); Absolute Eosinophil Count 0.23 k/cumm (0.0-0.7); Absolute Lymphocyte Count 2.09 k/cumm (1.2-3.4); Basophils % 0.2; Eosinophils % 1.8; HCT 38.2 % (36.0-46.0); HGB 12.7 g/dL (12.0-15.5); Immature Grans % 0.2; Lymphocytes % 16.2; Mean Corp. HGB Concentration 33.2 g/dL (32.0-36.0); Mean Corpuscular Hemoglobin 31.1 pg (27.0-33.0); Mean Corpuscular Volume 93.4 fL (80-95); Mean Platelet Volume 10.5 fL (8.0-11.0); Neutrophils % 67.6; Platelet Count 255 x1000/uL (130-400); RBC 4.09 m/cumm (4.00-5.20); RBC Distribution Width 12.4 % (11.7-14.6); White Blood Cell Count 12.89 k/cumm (4.4-10.8)
[2019-05-12 07:06] LABS: BUN 12 mg/dL (7-18); Calcium 7.1 mg/dL (8.5-10.1); Chloride 104 mmol/L (98-107); Glucose 86 mg/dL (70-100); Magnesium 1.7 mg/dL (1.8-2.4); Potassium 3.8 mmol/L (3.5-5.1); Sodium 136 mmol/L (136-145)
[2019-05-12 07:14] VITALS: BP 99/60; PULSE 89; RESP 17; TEMP 37.1; O2SAT 98
[2019-05-12 07:20] LABS: Absolute Neutrophil Count 8.71 k/cumm (1.2-6.7)
[2019-05-12 07:40] LABS: Diff Comment Agrees w/ Instrument; RBC Morphology Normal
[2019-05-12] MEDS: Nicotine 21 MG/24 HR PATCH TD (09:17)
[2019-05-12] MEDS: Esomeprazole 20 MG CAPCR PO ×2 (09:18→20:12)
[2019-05-12] MEDS: Dicyclomine 10 MG CAP PO ×4 (09:18→20:12)
[2019-05-12] MEDS: Famotidine 20 MG TAB PO ×2 (09:19→20:12)
[2019-05-12] MEDS: MAGNESIUM SULFATE 2 GM/50 ML BAG IVPB (09:53)
[2019-05-12] MEDS: oxyCODONE 5 MG TAB PO ×3 (10:11→20:11)
--- NOTE | 2019-05-12 11:08 | PGE_ITS ---
Date of Service Date of service: 05/12/19 Time of Service: 11:08 Assessment and Plan (1) Colitis: Current visit: Yes Status: Acute Positive for C. Diff Colitis, CT shows colitis. She is on day #2/10 of oral vancomycin. Her diarrhea appears to be slowing down. Her appetite remains poor. Continue oral Vanco, scheduled bentyl for cramps/spasms, IV acetaminophen and toradol, oxycodone for breakthrough pain. (2) Nausea: Current visit: Yes Status: Acute Continue PRN zofran for nausesa. (3) Diarrhea: Current visit: Yes Status: Acute As above, appears to be improving. Subjective Interval history since last seen: Sandra reports that her last bowel movement was early in the morning, she is not having frequent stools. She continues to have significant abdominal pain with bowel movements. Her abdominal pain is tolerable at rest. The pain increases with activity. She reports nausea this morning, no vomiting. She continues to have a poor appetite. She is requesting a shower. She denies any other concerns such as cough, shortness of breath, wheezi ng, cough, chest pain/pressure, edema. Exam Narrative Exam Narrative: General: awake, alert and appropriate, pleasant and cooperative, in NAD. HEENT: normocephalic, atraumatic, pupils equal and round, EOMI, mucous membranes moist. Neck: supple, no JVD. Cardiovascular: heart has regular rate and rhythm, no murmur appreciated. Respiratory: respirations even and unlabored, lung sounds clear bilaterally. GI: normal bowel sounds throughout, abdomen soft, nondistended, diffuse tenderness on palpation. Extremities: well perfused, no clubbing cyanosis or edema, no calf swelling or tenderness. Objective Objective Clinical Data: Abnormal lab results 05/12/19 05/12/19 Range/Units 06:30 06:30 WBC 12.89 H (4.4-10.8) k/cumm Absolute Neutrophils 8.71 H (1.2-6.7) k/cumm Absolute Monocytes 1.80 H (0.11-0.7) k/cumm Calcium 7.1 L (8.5-10.1) mg/dL Magnesium 1.7 L (1.8-2.4) mg/dL Vital Signs Temperature 37.1 C 05/12/19 07:14 Temperature Source Tympanic 05/12/19 07:14 Pulse 89 05/12/19 07:14 Pulse Rhythm Regular 05/12/19 05:23 Respiratory Rate 17 05/12/19 07:14 Respiratory Effort Non-Labored 05/12/19 05:23 Respiratory Depth Normal 05/12/19 05:23 Respiratory Pattern Normal 05/12/19 05:23 Blood Pressure 99/60 L 05/12/19 07:14 Blood Pressure Position Sitting 05/09/19 15:04 Pulse Oximetry 98 05/12/19 07:14 Oxygen Delivery Method Room Air 05/12/19 07:14 Oxygen Flow Rate 0 05/12/19 07:14 Pain Level 7 05/12/19 10:11 Comment 05/12/19 07:14 Intake & Output 05/11/19 05/11/19 05/12/19 11:59 23:59 11:59 Intake Total 2062.5 / 3135.0 1072.5 / 3135.0 300 / 300 Output Total 350 / 400 50 / 400 Balance 1712.5 / 2735.0 1022.5 / 2735.0 300 / 300 Intake: IV 2062.5 / 2695.0 632.5 / 2695.0 200 / 200 Oral 440 / 440 100 / 100 Output: Stool 350 / 350 Emesis 50 / 50 Other: Urine Color Pale Urine Appearance Clear Clear Urine Odor Normal Comment Pt voiding ad jaden Stool Size Moderate Small Stool Characteristics Hard Liquid Liquid Emesis Description Clear/Water Voiding Methods Toilet Laboratory Results WBC 12.89 k/cumm (4.4-10.8) H 05/12/19 06:30 RBC 4.09 m/cumm (4.00-5.20) 05/12/19 06:30 Hgb 12.7 g/dL (12.0-15.5) 05/12/19 06:30 Hct 38.2 % (36.0-46.0) 05/12/19 06:30 MCV 93.4 fL (80-95) 05/12/19 06:30 MCH 31.1 pg (27.0-33.0) 05/12/19 06:30 MCHC 33.2 g/dL (32.0-36.0) 05/12/19 06:30 RDW 12.4 % (11.7-14.6) 05/12/19 06:30 Plt Count 255 x1000/uL (130-400) 05/12/19 06:30 MPV 10.5 fL (8.0-11.0) 05/12/19 06:30 Immature Gran % 0.2 05/12/19 06:30 67.6 05/12/19 06:30 5.0 % 05/11/19 08:09 16.2 05/12/19 06:30 Atypical Lymphs % 0.0 05/11/19 08:09 14.0 05/12/19 06:30 1.8 05/12/19 06:30 0.2 05/12/19 06:30 1.0 % 05/11/19 08:09 Absolute Neutrophils 8.71 k/cumm (1.2-6.7) H 05/12/19 06:30 Absolute Lymphocytes 2.09 k/cumm (1.2-3.4) 05/12/19 06:30 Absolute Monocytes 1.80 k/cumm (0.11-0.7) H 05/12/19 06:30 Absolute Eosinophils 0.23 k/cumm (0.0-0.7) 05/12/19 06:30 Absolute Basophils 0.03 k/cumm (0.0-0.2) 05/12/19 06:30 Agrees w/ instrument 05/12/19 06:30 RBC Morphology Normal 05/12/19 06:30 PT 10.0 sec (9.3-11.0) 05/09/19 15:18 INR 1.0 (0.9-1.1) 05/09/19 15:18 APTT 26.0 sec (21.0-31.4) 05/09/19 15:18 Sodium 136 mmol/L (136-145) 05/12/19 06:30 Potassium 3.8 mmol/L (3.5-5.1) 05/12/19 06:30 Chloride 104 mmol/L (98-107) 05/12/19 06:30 Carbon Dioxide 23.0 mmol/L (21.0-32.0) 05/12/19 06:30 9.0 mmol/L (3-11) 05/12/19 06:30 BUN 12 mg/dL (7-18) 05/12/19 06:30 0.60 mg/dL (0.55-1.02) 05/12/19 06:30 >= 60.00 (mL/min/1.73m2) 05/12/19 06:30 Glucose 86 mg/dL (70-100) 05/12/19 06:30 Calcium 7.1 mg/dL (8.5-10.1) L 05/12/19 06:30 Magnesium 1.7 mg/dL (1.8-2.4) L 05/12/19 06:30 0.4 mg/dL (0.2-1.0) 05/09/19 15:18 AST 16 U/L (15-37) 05/09/19 15:18 ALT 26 U/L (14-59) 05/09/19 15:18 60 U/L (46-116) 05/09/19 15:18 3.06 mg/dL (0.0-0.3) H 05/09/19 15:18 8.1 g/dL (6.4-8.2) 05/09/19 15:18 4.2 g/dL (3.4-5.0) 05/09/19 15:18 152 U/L (73-393) 05/09/19 15:18 Yellow (Yellow) 05/09/19 15:20 Clear (Clear) 05/09/19 15:20 7.0 (5-8) 05/09/19 15:20 Ur Specific [place] 1.015 (1.005-1.025) 05/09/19 15:20 Negative mg/dL (Negative) 05/09/19 15:20 40 mg/dL (Negative) H 05/09/19 15:20 Moderate (Negative) H 05/09/19 15:20 Negative (Negative) 05/09/19 15:20 Negative (Negative) 05/09/19 15:20 0.2 EU/dL (Up TO 0.2) 05/09/19 15:20 Ur Leukocyte Esterase Negative (Negative) 05/09/19 15:20 5-10 (0-2) H 05/09/19 15:20 Negative HPF (0-5) 05/09/19 15:20 Ur Epithelial Cells Rare HPF (Negative) 05/09/19 15:20 Negative HPF (Negative) 05/09/19 15:20 Rare HPF (Negative) 05/09/19 15:20 Negative LPF (Negative) 05/09/19 15:20 Negative (Negative) 05/09/19 15:20 Negative (Negative) 05/09/19 15:20 Ur Culture Indicated? No 05/09/19 15:20 Negative mg/dL (Negative) 05/09/19 15:20 Stl C.difficile Tox PCR Cancelled 05/10/19 14:00 Cancelled 05/10/19 09:03 Cancelled 05/10/19 09:03 HLA Typ Interp Celiac Cancelled 05/10/19 09:03 Cancelled 05/10/19 09:03 C.difficile Tox Source Cancelled 05/10/19 14:00
[2019-05-12 11:36] LABS: IgA 72 mg/dL (85-499); Interpretation SEE COMMENTS; Tissue Transglutaminase IgA <1.2 U/mL (<4.0)
[2019-05-12 12:22] LABS: Campylobacter PCR SEE COMMENTS; Salmonella PCR SEE COMMENTS; Shiga Toxin PCR SEE COMMENTS; Shigella/Enteroinvasive Ecoli SEE COMMENTS
[2019-05-12 15:32] VITALS: BP 119/83; PULSE 78; RESP 18; TEMP 37.1; O2SAT 99
--- NOTE | 2019-05-12 16:23 | PDOC.CMPRO ---
- If Service Date Differs Date of service: 05/12/19 Time of Service: 16:23 Care Management Progress Note S/O: Sandra was sitting up in her bed when CM met with her. She stated that her pain was better, 7/10, which was an improvement from earlier in the day. She stated that she has had a lot of medical issues in the past when CM asked if she was generally healthy. Her mother, Yady, entered the room during the conversation. CM asked if Sandra was aware of the plan, which she answered that they would discharge her once her pain and diarrhea was under control. CM asked if she had any supports in the community, which she does not currently. A: 23 year old female admitted to [facility] 05/09/19 for Colitis P: Sandra continues to be closely monitored, C-diff results positive per MD. Sandra has transitioned to oral antibiotics, and once her medications are managed she will discharge home with no additional services. CM continues to follow and support discharge planning considerations.
--- NOTE | 2019-05-12 16:36 | CHAPLAIN ---
Sandra was coming out of her bathroom when I stopped in. I introduced myself as the [facility] metal burrer, and right away Sandra said No thank you. I'm not mormonism. I assured her not being mormonism is fine, I just wanted her to know that I'm available if she would like to talk at any point while she's here. She again said no thank you. I let Sandra know that being mormonism was not important and reminded her I'm here if I can be on any help.
[2019-05-12] MEDS: Meloxicam 15 MG TAB 7.5 MG PO (21:30)
[2019-05-12] MEDS: Norethindrone 5 MG TAB PO (21:30)
[2019-05-12] MEDS: Gabapentin 300 MG CAP PO (21:31)
[2019-05-13] MEDS: ACETAMINOPHEN 1,000 MG/100 ML BTL 400 MG IVPB ×2 (00:22→10:25)
[2019-05-13] MEDS: oxyCODONE 5 MG TAB PO ×5 (00:23→20:08)
[2019-05-13] MEDS: Ondansetron 4 MG/2 ML VIAL IVP ×7 (00:24→22:33)
[2019-05-13] MEDS: Normal Saline Flush 10 ML SYR IVP ×6 (00:25→22:35)
[2019-05-13 00:42] VITALS: BP 104/64; PULSE 88; RESP 16; TEMP 37; O2SAT 97
[2019-05-13] MEDS: Vancomycin 125 MG CAP PO ×4 (04:00→22:35)
[2019-05-13 07:31] LABS: Abs Immature Grans 0.04 k/cumm (0.0-0.09); Absolute Basophil Count 0.03 k/cumm (0.0-0.2); Absolute Neutrophil Count 10.03 k/cumm (1.2-6.7); Basophils % 0.2; HGB 13.1 g/dL (12.0-15.5); Immature Grans % 0.3; Lymphocytes % 14.9; Mean Corp. HGB Concentration 33.6 g/dL (32.0-36.0); Mean Corpuscular Hemoglobin 31.3 pg (27.0-33.0); Mean Corpuscular Volume 93.1 fL (80-95); Mean Platelet Volume 10.4 fL (8.0-11.0); Monocytes % 9.9; Neutrophils % 72.7; Platelet Count 261 x1000/uL (130-400); RBC 4.19 m/cumm (4.00-5.20); RBC Distribution Width 12.3 % (11.7-14.6); White Blood Cell Count 13.79 k/cumm (4.4-10.8)
[2019-05-13 07:32] LABS: Absolute Eosinophil Count 0.28 k/cumm (0.0-0.7); Absolute Lymphocyte Count 2.05 k/cumm (1.2-3.4); Absolute Monocyte Count 1.37 k/cumm (0.11-0.7)
[2019-05-13 07:51] VITALS: BP 121/68; PULSE 99; RESP 22; TEMP 36.7; O2SAT 100
[2019-05-13 07:51] LABS: Anion Gap 14.6 mmol/L (3-11); BUN 8 mg/dL (7-18); CO2 18.4 mmol/L (21.0-32.0); CREATININE 0.71 mg/dL (0.55-1.02); Calcium 7.5 mg/dL (8.5-10.1); Chloride 103 mmol/L (98-107); Glucose 66 mg/dL (70-100); Magnesium 1.5 mg/dL (1.8-2.4); Potassium 3.6 mmol/L (3.5-5.1); Sodium 136 mmol/L (136-145)
[2019-05-13] MEDS: Esomeprazole 20 MG CAPCR PO (08:02)
[2019-05-13] MEDS: Ketorolac 30 MG/ML VIAL IVP ×3 (08:02→22:33)
[2019-05-13] MEDS: Dicyclomine 10 MG CAP PO ×4 (08:02→20:08)
[2019-05-13] MEDS: Famotidine 20 MG TAB PO (08:03)
[2019-05-13] MEDS: Nicotine 21 MG/24 HR PATCH TD (08:04)
[2019-05-13 09:02] VITALS: RESP 16
[2019-05-13] MEDS: Magnesium Oxide 400 MG TAB PO (10:21)
[2019-05-13] MEDS: MAGNESIUM SULFATE 2 GM/50 ML BAG IVPB (10:44)
[2019-05-13 11:20] VITALS: RESP 16
--- NOTE | 2019-05-13 13:49 | W.PM.PROGNOT ---
Date of Service Date of service: 05/13/19 Time of Service: 12:00 Assessment and Plan (1) Colitis: Current visit: Yes Status: Acute Positive for C. Diff Colitis, CT shows colitis. She is on day #3/10 of oral vancomycin. Her diarrhea appears to be slowing down. Her appetite shows mild improvement today. Continue oral Vanco, scheduled bentyl for cramps/spasms, IV acetaminophen and toradol, oxycodone for breakthrough pain. Labs assessing for Celiac Disease reveal low total serum IgA. She will need follow up with gastroenterology for further testing. Stool Calprotectin pending. (2) Nausea: Current visit: Yes Status: Acute Continue PRN zofran for nausesa. (3) Diarrhea: Current visit: Yes Status: Acute As above, appears to be improving. (4) Grief: Current visit: Yes Status: Acute Associated with loss of sibling to drug overdose. Will need to follow up with her therapist as an outpatient. She is followed by Nisa Xiong. Subjective Interval history since last seen: Sandra reports some improvement in her abdominal pain. Her abdominal pain is tolerable at rest. The pain increases with activity. She continues to have significant abdominal pain with bowel movements. She believes her stools are slowing down, her last one was early this morning. She is tolerating small amounts of food. She was nauseated this morning, zofran helped. She denies any other concerns such as cough, shortness of breath, wheezing, cough, chest pain/pressure, edema. Exam Narrative Exam Narrative: General: awake, alert and appropriate, laying flat in bed, pleasant and cooperative, in NAD. HEENT: normocephalic, atraumatic, pupils equal and round, EOMI, mucous membranes moist. Neck: supple, no JVD. Cardiovascular: heart has regular rate and rhythm, no murmur appreciated. Respiratory: respirations even and unlabored, lung sounds clear bilaterally. GI: normal bowel sounds throughout, abdomen soft, nondistended, diffuse tenderness on palpation. Extremities: well perfused, no clubbing cyanosis or edema, no calf swelling or tenderness. Objective Objective Clinical Data: Abnormal lab results 05/10/19 05/13/19 05/13/19 Range/Units 07:11 07:11 07:11 WBC 13.79 H (4.4-10.8) k/cumm Absolute Neutrophils 10.03 H (1.2-6.7) k/cumm Absolute Monocytes 1.37 H (0.11-0.7) k/cumm Carbon Dioxide 18.4 L (21.0-32.0) mmol/L Anion Gap 14.6 H (3-11) mmol/L Glucose 66 L (70-100) mg/dL Calcium 7.5 L (8.5-10.1) mg/dL Magnesium 1.5 L (1.8-2.4) mg/dL IgA 72 L (85-499) mg/dL Vital Signs Temperature 36.7 C 05/13/19 07:51 Temperature Source Tympanic 05/13/19 07:51 Pulse 99 H 05/13/19 07:51 Pulse Rhythm Regular 05/13/19 09:58 Respiratory Rate 16 05/13/19 11:20 Respiratory Effort Non-Labored 05/13/19 09:58 Respiratory Depth Normal 05/13/19 09:58 Respiratory Pattern Normal 05/13/19 09:58 Blood Pressure 121/68 05/13/19 07:51 Blood Pressure Position Sitting 05/09/19 15:04 Pulse Oximetry 100 05/13/19 07:51 Oxygen Delivery Method Room Air 05/13/19 07:51 Oxygen Flow Rate 0 05/13/19 07:51 Pain Level 4 05/13/19 11:20 Comment 05/12/19 07:14 Intake & Output 05/12/19 05/13/19 05/13/19 23:59 11:59 23:59 Intake Total 500 / 800 140 / 140 Balance 500 / 800 140 / 140 Intake: IV 200 / 400 140 / 140 Oral 300 / 400 Other: Comment Patient voiding independantly Stool Size Small Small Stool Characteristics Soft Liquid Brown Voiding Methods Toilet Laboratory Results WBC 13.79 k/cumm (4.4-10.8) H 05/13/19 07:11 RBC 4.19 m/cumm (4.00-5.20) 05/13/19 07:11 Hgb 13.1 g/dL (12.0-15.5) 05/13/19 07:11 Hct 39.0 % (36.0-46.0) 05/13/19 07:11 MCV 93.1 fL (80-95) 05/13/19 07:11 MCH 31.3 pg (27.0-33.0) 05/13/19 07:11 MCHC 33.6 g/dL (32.0-36.0) 05/13/19 07:11 RDW 12.3 % (11.7-14.6) 05/13/19 07:11 Plt Count 261 x1000/uL (130-400) 05/13/19 07:11 MPV 10.4 fL (8.0-11.0) 05/13/19 07:11 Immature Gran % 0.3 05/13/19 07:11 72.7 05/13/19 07:11 5.0 % 05/11/19 08:09 14.9 05/13/19 07:11 Atypical Lymphs % 0.0 05/11/19 08:09 9.9 05/13/19 07:11 2.0 05/13/19 07:11 0.2 05/13/19 07:11 1.0 % 05/11/19 08:09 Absolute Neutrophils 10.03 k/cumm (1.2-6.7) H 05/13/19 07:11 Absolute Lymphocytes 2.05 k/cumm (1.2-3.4) 05/13/19 07:11 Absolute Monocytes 1.37 k/cumm (0.11-0.7) H 05/13/19 07:11 Absolute Eosinophils 0.28 k/cumm (0.0-0.7) 05/13/19 07:11 Absolute Basophils 0.03 k/cumm (0.0-0.2) 05/13/19 07:11 Agrees w/ instrument 05/12/19 06:30 RBC Morphology Normal 05/12/19 06:30 PT 10.0 sec (9.3-11.0) 05/09/19 15:18 INR 1.0 (0.9-1.1) 05/09/19 15:18 APTT 26.0 sec (21.0-31.4) 05/09/19 15:18 Sodium 136 mmol/L (136-145) 05/13/19 07:11 Potassium 3.6 mmol/L (3.5-5.1) 05/13/19 07:11 Chloride 103 mmol/L (98-107) 05/13/19 07:11 Carbon Dioxide 18.4 mmol/L (21.0-32.0) L 05/13/19 07:11 14.6 mmol/L (3-11) H 05/13/19 07:11 BUN 8 mg/dL (7-18) 05/13/19 07:11 0.71 mg/dL (0.55-1.02) 05/13/19 07:11 >= 60.00 (mL/min/1.73m2) 05/13/19 07:11 Glucose 66 mg/dL (70-100) L 05/13/19 07:11 Calcium 7.5 mg/dL (8.5-10.1) L 05/13/19 07:11 Magnesium 1.5 mg/dL (1.8-2.4) L 05/13/19 07:11 0.4 mg/dL (0.2-1.0) 05/09/19 15:18 AST 16 U/L (15-37) 05/09/19 15:18 ALT 26 U/L (14-59) 05/09/19 15:18 60 U/L (46-116) 05/09/19 15:18 3.06 mg/dL (0.0-0.3) H 05/09/19 15:18 8.1 g/dL (6.4-8.2) 05/09/19 15:18 4.2 g/dL (3.4-5.0) 05/09/19 15:18 152 U/L (73-393) 05/09/19 15:18 Yellow (Yellow) 05/09/19 15:20 Clear (Clear) 05/09/19 15:20 7.0 (5-8) 05/09/19 15:20 Ur Specific [place] 1.015 (1.005-1.025) 05/09/19 15:20 Negative mg/dL (Negative) 05/09/19 15:20 40 mg/dL (Negative) H 05/09/19 15:20 Moderate (Negative) H 05/09/19 15:20 Negative (Negative) 05/09/19 15:20 Negative (Negative) 05/09/19 15:20 0.2 EU/dL (Up TO 0.2) 05/09/19 15:20 Ur Leukocyte Esterase Negative (Negative) 05/09/19 15:20 5-10 (0-2) H 05/09/19 15:20 Negative HPF (0-5) 05/09/19 15:20 Ur Epithelial Cells Rare HPF (Negative) 05/09/19 15:20 Negative HPF (Negative) 05/09/19 15:20 Rare HPF (Negative) 05/09/19 15:20 Negative LPF (Negative) 05/09/19 15:20 Negative (Negative) 05/09/19 15:20 Negative (Negative) 05/09/19 15:20 Ur Culture Indicated? No 05/09/19 15:20 Negative mg/dL (Negative) 05/09/19 15:20 Cancelled 05/11/19 06:35 Stool Campylobacter PCR See comments 05/10/19 14:00 Stl C.difficile Tox PCR Cancelled 05/10/19 14:00 Stool Salmonella PCR See comments 05/10/19 14:00 Stool Shigella PCR See comments 05/10/19 14:00 IgA 72 mg/dL (85-499) L 05/10/19 07:11 Tiss Transglutamin IgA <1.2 U/mL (<4.0) 05/10/19 07:11 Celiac Disease Interp See comments 05/10/19 07:11 Cancelled 05/10/19 09:03 Cancelled 05/10/19 09:03 HLA Typ Interp Celiac Cancelled 05/10/19 09:03 Cancelled 05/10/19 09:03 C.difficile Tox Source Cancelled 05/10/19 14:00 See comments 05/10/19 14:00
--- NOTE | 2019-05-13 14:05 | PDOC.CMPRO ---
- If Service Date Differs Date of service: 05/13/19 Time of Service: 14:05 Care Management Progress Note S/O: Sandra was lying in her bed when CM met with her. Her nurse was in and out of the room during the conversation between CM and Jimmy. She reported that while she is lying in bed she feels better, but she still has a lot of pain, especially when she has to use the bathroom. She reports that her diarrhea continues also. SANDRA asked Jimmy if she has seen anyone regarding her recent trauma- the loss of her 18 y/o brother. She states that she has a therapist, Nisa Xiong, in [place] who she sees weekly, and she has seen her on and off for ten years. She also states that Nisa Xiong knows that she is currently in the hospital. SANDRA provided Jimmy with documentation from the [facility] regarding C.Diff precautions, as requested by Jimmy. CM will continue to follow. A: 23 year old female admitted to [facility] 05/09/19 for Colitis P: Sandra continues to be closely monitored, C-diff results positive per MD. Sandra has transitioned to oral antibiotics, and once her medications are managed she will discharge home with no additional services. SANDRA continues to follow and support discharge planning considerations.
[2019-05-13 17:21] VITALS: BP 92/48; PULSE 92; RESP 16; TEMP 37.4; O2SAT 100
[2019-05-13] MEDS: Acetaminophen 500 MG TAB 1000 MG PO (18:12)
[2019-05-13] MEDS: Norethindrone 5 MG TAB PO (22:35)
[2019-05-13] MEDS: Gabapentin 300 MG CAP PO (22:35)
[2019-05-14 00:09] VITALS: BP 109/68; PULSE 85; RESP 16; TEMP 37.5; O2SAT 98
[2019-05-14] MEDS: Ondansetron 4 MG/2 ML VIAL IVP ×3 (02:38→11:49)
[2019-05-14] MEDS: Normal Saline Flush 10 ML SYR IVP ×2 (02:39→07:04)
[2019-05-14] MEDS: oxyCODONE 5 MG TAB PO ×3 (02:40→11:48)
[2019-05-14] MEDS: Acetaminophen 500 MG TAB 1000 MG PO ×2 (02:41→11:49)
[2019-05-14] MEDS: Vancomycin 125 MG CAP PO ×2 (04:26→08:10)
[2019-05-14 08:03] VITALS: RESP 16
[2019-05-14 08:05] LABS: Abs Immature Grans 0.07 k/cumm (0.0-0.09); Absolute Basophil Count 0.01 k/cumm (0.0-0.2); Absolute Eosinophil Count 0.21 k/cumm (0.0-0.7); Absolute Lymphocyte Count 2.01 k/cumm (1.2-3.4); Absolute Monocyte Count 0.94 k/cumm (0.11-0.7); Basophils % 0.1; Eosinophils % 2.2; HCT 41.1 % (36.0-46.0); Immature Grans % 0.7; Lymphocytes % 20.8; Mean Corp. HGB Concentration 34.1 g/dL (32.0-36.0); Mean Corpuscular Hemoglobin 31.3 pg (27.0-33.0); Mean Corpuscular Volume 91.7 fL (80-95); Mean Platelet Volume 10.2 fL (8.0-11.0); Monocytes % 9.7; Neutrophils % 66.5; Platelet Count 303 x1000/uL (130-400); RBC 4.48 m/cumm (4.00-5.20); RBC Distribution Width 12.5 % (11.7-14.6); White Blood Cell Count 9.65 k/cumm (4.4-10.8)
[2019-05-14 08:06] LABS: Absolute Neutrophil Count 6.42 k/cumm (1.2-6.7)
[2019-05-14] MEDS: Ketorolac 30 MG/ML VIAL IVP (08:09)
[2019-05-14] MEDS: Dicyclomine 10 MG CAP PO ×2 (08:10→11:49)
[2019-05-14] MEDS: Nicotine 21 MG/24 HR PATCH TD (08:10)
[2019-05-14 08:15] LABS: Anion Gap 11.2 mmol/L (3-11); BUN 5 mg/dL (7-18); CO2 22.8 mmol/L (21.0-32.0); CREATININE 0.73 mg/dL (0.55-1.02); Calcium 8.3 mg/dL (8.5-10.1); Chloride 103 mmol/L (98-107); Glucose 91 mg/dL (70-100); Magnesium 1.7 mg/dL (1.8-2.4); Potassium 3.6 mmol/L (3.5-5.1); Sodium 137 mmol/L (136-145)
[2019-05-14 08:18] VITALS: BP 109/70; PULSE 81; RESP 16; TEMP 37.6; O2SAT 99
[2019-05-14 08:30] VITALS: RESP 16
--- NOTE | 2019-05-14 11:46 | W.PM.DS.N ---
Date of service: 05/14/19 Time of Service: 11:46 DS: Diagnosis Discharge Diagnosis (1) Colitis: Status: Acute (2) Nausea: Status: Acute (3) Diarrhea: Status: Acute (4) Grief: Status: Acute Discharge Plan Disposition Patient Disposition: HOME Condition: Improving Discharge Details Chief Complaint: Abd Prob Reason For Visit: COLITIS Admit Date/Time: 05/09/19 19:07 Admit Provider: Maury Petty Attending Provider: Maury Petty Primary Care Provider: Nora Wisdom ED Provider: Rhoda Doty Hospital Course Hospital Course: Sandra is a very pleasant 23 year old female with a past medical history significant for depression, PTSD, endometriosis, vitamin D deficiency, fibromyalgia, lactose intolerance GERD and chronic abdominal pain who presented to the ED on 05/09/19 with reports of a 4 day history of bloody diarrhea, several episodes per day. Her labs revealed leukocytosis. She had an abdomen/pelvis CT which showed marked edema of the wall of the colon from mid transverse colon to the rectum, suggestive of colitis. She was admitted to the Med/surg floor for further evaluation and management. She was found to have C. diff colitis and was initiated on oral vancomycin. Over the following days her number of daily stools decreased. Her leukocytosis resolved, she was afebrile. Her abdominal pain decreased, she still had some intermittent cramping at the time of discharge, but felt that the pain was tolerable. She was noted to be on PPI and H2 dm as an outpatient, both of which may have contributed to this episode of C. diff colitis. Her PPI and H2 blockers were discontinued. She was also taking celebrex and mobic at home which may have been contributing to her GI upset and GERD. She also reported recent antibiotics over the last few months. Labs were sent to assess for possible Celiac disease, her total serum IgA was low at 72, her Tiss Transglutamin IgA was negative, however, in the setting of IgA deficiency, Celiac disease is not ruled out. She will need to be referred to Gastroenterology for further evaluation and testing. Stool Calprotectin is pending at the time of discharge. She is advised to remain on a gluten free diet. She will remain on oral vanco for a 10 day course. She will be discharged home with zofran and a small prescription for pain medication. With close PCP follow up. Of note, she recently lost her younger brother to a drug overdose, she will follow up with her therapist as an outpatient next week. We are sending a referral to Gastroenterology as above for further work up for Celiac disease. Home Meds and New Rx's Prescriptions: New dicyclomine 10 mg Capsule 10 mg PO QID Qty: 12 RF: 0 Lactobacillus acidophilus 0.5 mg (100 million cell) tablet 50 mmu cells PO TID Qty: 20 RF: 0 vancomycin 125 mg Capsule 125 mg PO Q6H Qty: 25 RF: 0 oxycodone 5 mg Tablet 5 mg PO Q6H PRN PRNQty: 10 RF: 0 ondansetron 4 mg tablet,disintegrating 4 mg PO Q8H PRN (Reason: nausea and vomiting) Qty: 14 RF: 0 ketorolac 10 mg tablet 10 mg PO Q6H PRN (Reason: pain) 5 Days Qty: 6 RF: 0 Continued norethindrone acetate 5 MG tablet 5 mg PO HS RF: 0 ergocalciferol (vitamin D2) [Vitamin D2] 50,000 UNIT capsule 50,000 units PO .TWICE WEEKLY RF: 0 methylphenidate HCl 10 MG tablet 10 mg PO BID RF: 0 methylphenidate HCl [Ritalin] 20 MG tablet 40 mg PO DAILY RF: 0 gabapentin 300 mg Capsule 300 mg PO HS RF: 0 Discontinued tramadol 50 MG tablet 50 mg PO TID PRNRF: 0 meloxicam 7.5 mg Tablet 7.5 mg PO HS RF: 0 celecoxib [Celebrex] 200 mg Capsule 200 mg PO DAILY RF: 0 famotidine 20 mg Tablet 40 mg PO BID RF: 0 esomeprazole magnesium [Nexium] 20 mg Capsule,Delayed Release(Dr/Ec) 40 mg PO BID RF: 0 Discharge Instructions Instructions: Celiac Disease (DC), Gluten-Free Diet (DC), Infectious Colitis (GEN) Additional Instructions: Take the antibiotics (vanco) until they are gone. Stop taking your nexium and pepcid. Stop taking Celebrex and Mobic, they are both NSAIDS (toradol is too) and they can upset your stomach. Your labs could not rule out Celiac Disease. You will need to change to a gluten free diet. We are referring you to a GI specialist for futher evaluation. Follow up with your PCP as scheduled. Take care! Stand Alone Forms: Nursing Discharge Form Referrals: Artemio Jorgensen [ NON-[facility] STAFF PHYSICIAN] - Nora Wisdom [Primary Care Provider] - 05/16/19 1:40 pm Activity:: Activity as Tolerated Equipment/Supplies:: No Equipment Needed Diet:: Gluten-free diet as tolerated. Exam Narrative Exam Narrative: General: awake, alert and appropriate, laying flat in bed, pleasant and cooperative, in NAD. HEENT: normocephalic, atraumatic, pupils equal and round, EOMI, mucous membranes moist. Neck: supple, no JVD. Cardiovascular: heart has regular rate and rhythm, no murmur appreciated. Respiratory: respirations even and unlabored, lung sounds clear bilaterally. GI: normal bowel sounds throughout, abdomen soft, nondistended, mild tenderness on palpation. Extremities: well perfused, no clubbing cyanosis or edema, no calf swelling or tenderness. DS: Data Vitals/I&O Vitals and I&O: Vital Signs Temperature 37.6 C 05/14/19 08:18 Temperature Source Tympanic 05/14/19 08:18 Pulse 81 05/14/19 08:18 Pulse Rhythm Regular 05/14/19 08:37 Respiratory Rate 16 05/14/19 08:30 Respiratory Effort Non-Labored 05/14/19 08:37 Respiratory Depth Normal 05/14/19 08:37 Respiratory Pattern Normal 05/14/19 08:37 Blood Pressure 109/70 05/14/19 08:18 Blood Pressure Position Sitting 05/09/19 15:04 Pulse Oximetry 99 05/14/19 08:18 Oxygen Delivery Method Room Air 05/14/19 08:18 Oxygen Flow Rate 0 05/14/19 08:18 Pain Level 4 05/14/19 08:30 Comment 05/12/19 07:14 Intake & Output 05/13/19 05/13/19 05/14/19 11:59 23:59 11:59 Intake Total 140 / 140 590 / 590 Balance 140 / 140 590 / 590 Intake: IV 140 / 140 20 / 20 Oral 570 / 570 Other: Urine Color Yellow Urine Appearance Clear Urine Odor Normal Comment Patient voiding independantly Patient voiding independantly Stool Size Small Small Stool Characteristics Liquid Liquid Voiding Methods Toilet Toilet Completed studies during hospitalization [Text1]: 05/09/[address]: CT examination of the abdomen and pelvis was performed with a bolus infusion of 79 cc's of Omnipaque 350 and ingestion of dilute barium. Images obtained through the lung bases are unremarkable. Liver, spleen and pancreas appear intact. Gallbladder and bile ducts are unremarkable. Adrenals and kidneys are unremarkable with incidental apparent small left renal cysts. No urinary tract obstruction. Tiny non obstructing left renal calculus may be present. Abdominal aorta is of normal diameter and no major vascular abnormality is seen. No abdominal or pelvic adenopathy. No significant abdominal wall hernia is seen. HEALTH RECORD TECHNICIAN structures appear intact. No evidence of appendicitis. The terminal ileum appears normal. There is marked edema of the wall of the colon from mid transverse colon to the rectum. The findings are suggestive of colitis, of uncertain etiology. Ulcerative colitis not excluded with the absence of skip lesions noted. CONCLUSION: Findings consistent with colitis, no evidence of perforation or obstruction. Labs on day of discharge: Labs from last 24 hours 05/14/19 05/14/19 05/11/19 08:00 08:00 07:01 WBC 9.65 D RBC 4.48 Hgb 14.0 Hct 41.1 MCV 91.7 MCH 31.3 MCHC 34.1 RDW 12.5 Plt Count 303 MPV 10.2 Immature Gran % 0.7 Neutrophils % 66.5 Lymphocytes % 20.8 Monocytes % 9.7 Eosinophils % 2.2 Basophils % 0.1 Absolute Neutrophils 6.42 Absolute Lymphocytes 2.01 Absolute Monocytes 0.94 H Absolute Eosinophils 0.21 Absolute Basophils 0.01 Sodium 137 Potassium 3.6 Chloride 103 Carbon Dioxide 22.8 Anion Gap 11.2 H BUN 5 L Creatinine 0.73 Estimated GFR/1.73 m2 >= 60.00 Glucose 91 Calcium 8.3 L Magnesium 1.7 L Stool Collect Duration Random Stool Weight 94 Stool Percent Fat 13 Stool Total Fats Not Applicable [facility] Medical History Chronic low back pain Depression Endometriosis GERD (gastroesophageal reflux disease) (Chronic) Lactose intolerance Posttraumatic stress disorder Primary fibromyalgia syndrome Vitamin D deficiency Surgical History Arthroplasty of knee Colonoscopy - MAC Diagnostic Laproscopy Tonsillectomy and adenoidectomy Family History Mother Personal history of malignant neoplasm Social History Smoking/Tobacco Use Status: Current every day Tobacco Type: cigarettes Alcohol Intake: never Drug use: Occasionally Substance use type: marijuana Do you feel safe at home: Yes Do you feel safe in your relationship?: Yes
[2019-05-14] MEDS: MAGNESIUM SULFATE 2 GM/50 ML BAG IVPB (11:49)
--- NOTE | 2019-05-14 13:05 | PDOC.CMDIS ---
- If Service Date Differs Date of service: 05/14/19 Time of Service: 13:05 LACE Index Scoring Tool - Questions: Length of Stay (in days): 4 - 6 Acuity (Admit via E.D.?): Yes E.D. Visits: 2 - Answers: Total Score: 9 Risk of Readmission: Low Risk Care Management Discharge Reason for Hospitalization: Colitis Discharge Plan: Sandra is returning home with no new services. She will resume her current community support with her therapist, Nisa Xiong. She has been advised by MD to maintain a gluten free diet upon discharge. She will follow up with her PCP. She is being transported home by her dad via private vehicle. Jimmy is happy with the plan to go home. Patient/Family Education Needs: Jimmy was concerned about infection control, CM provided documents from the CDC regarding C.Diff precautions. Review discharge instructions, discussion of self care needs upon discharge including new dietary needs and 'Ask Me Three'. - MH Services (Omit if N/A) Current MH Services: Other (Not HS. Jimmy sees a therapist, Nisa Xiong.)
[2019-05-15 19:58] LABS: Calprotectin 674 mcg/g
== END 2019-05-14 15:30 | disposition home or self-care (01) | DRG 373 ==
LOC: ER 19:27 → MS 19:54
PROVIDERS: Nurse Practitioner Family; Admitting Provider General Practice; Emergency Provider Physician Assistant; PCP Internal Medicine; Visit Provider Internal Medicine
DX: A04.72 Enterocolitis due to Clostridium difficile, not specified as recurrent (principal); R11.0 Nausea; F43.20 Adjustment disorder, unspecified; Z63.4 Disappearance and death of family member; F17.210 Nicotine dependence, cigarettes, uncomplicated; F32.9 Major depressive disorder, single episode, unspecified
CPT/HCPCS: 36415; 80048; 80053; 81025; 82784; 83516; 83690; 85027; 86816; 87505; 99222; 99231; 99232; 99233; 99239; 99254; 99285; 74177; 81003; 81015; 82710; 83735; 83993; 85025; 85610; 85730; 86140; 87324; 87798; 99284; J0131; J1885; J2405; J2930; J3475; J3490

== ENCOUNTER 2019-10-29 03:46 | Emergency (ER) | payer OTHER, SELFPAY ==
[2019-10-29 03:46] VITALS: BP 131/89; PULSE 96; RESP 16; TEMP 37; O2SAT 99
--- NOTE | 2019-10-29 03:49 | ED.GENADUL_ITS ---
Discharge Plan Disposition Patient Disposition: HOME Condition: Good Discharge Details Chief Complaint: PsychEval Clinical Impression: Depression Primary Care Provider: Nora Wisdom ED Provider: Danny Milner Home Meds and New Rx's Prescriptions: No Action norethindrone acetate 5 MG tablet 5 mg PO HS RF: 0 ergocalciferol (vitamin D2) [Vitamin D2] 50,000 UNIT capsule 50,000 units PO .TWICE WEEKLY RF: 0 dicyclomine 10 mg Capsule 10 mg PO QID Qty: 12 RF: 0 ondansetron 4 mg tablet,disintegrating 4 mg PO Q8H PRN (Reason: nausea and vomiting) Qty: 14 RF: 0 methylphenidate HCl 10 MG tablet 10 mg PO BID RF: 0 methylphenidate HCl [Ritalin] 20 MG tablet 30 mg PO DAILY RF: 0 gabapentin 300 mg Capsule 300 mg PO HS RF: 0 Discharge Instructions Instructions: Depression (ED) Additional Instructions: Please follow closely with your welfare case worker. If you have any thoughts of self-harm please return immediately. Please comply closely with the safety plan that we have established. If you notice any worsening of your symptoms, or any new symptoms such as vomiting, diarrhea, fever, chills, shortness of breath, chest pain, numbness, weakness, or fainting , please return immediately to the emergency department for reevaluation. Please follow up with your primary care provider as soon as possible for reassessment and reevaluation. As always, it was a pleasure participating in your medical care today. Referrals: Nora Wisdom [Primary Care Provider] - Medical Decision Making <Artemio See MD - Last Filed: 10/29/19 07:47> Patient cooperative and has been informed of procedure to include paper clothing, laboratory studies, CPSO and mental health eval once medically cleared. 05:20 - labs are fine. Alcohol level 145, will be clear to see mental health after 6:00 AM. Remains calm and cooperative. Lab Data Lab results reviewed: Yes I reviewed the patient's lab results. <Danny Milner DO - Last Filed: 10/29/19 08:36> At the time of signout the patient was cleared for discharge by mental health. Safety plan was contracted, and the patient feels safe with this, as does her mental health associate. She will be escorted with mental health home. Plan is appropriate at this time. Currently the patient is not wrist to her self, and denies any homicidal or suicidal ideations. I have extensively reviewed the treatment plan and discharge instructions with the patient. I have addressed all patient concerns at this time. The patient was made aware of what symptoms to monitor for that would warrant a return to the emergency department. Discussed the plan with the patient, they demonstrate verbal understanding and agreement with our assessment and plan at this time. HPI <Artemio See MD - Last Filed: 10/29/19 07:47> General Mode of arrival: EMS . Date/Time Provider Initiated Documentation: 10/29/19 03:48 . Limitations to Documentation: no limitations . Information obtained by: patient and RN notes reviewed . HPI Narrative: Patient presents to ED by ambulance for evaluation of depression and suicidal thoughts. Patient has been drinking tonight. She was also in an argument with her boyfriend. However, she reports that the of her little brother 6 months ago from a drug overdose is what ultimately has caused her depression and suicidal thoughts. She does have a counselor but has not seen her in over a month. She is taking the medication. She denies doing anything tonight to harm herself, came here instead to be safe. Has no physical complaints tonight other than some nausea from her anxiety. Is crying but is very cooperative. Related Data Home Medications Medication Instructions Recorded Confirmed norethindrone acetate 5 mg PO HS 03/15/13 10/29/19 ergocalciferol (vitamin D2) 50,000 units PO .TWICE WEEKLY 12/20/15 10/29/19 [Vitamin D2] methylphenidate HCl 10 mg PO BID 08/20/17 10/29/19 methylphenidate HCl [Ritalin] 30 mg PO DAILY 08/20/17 10/29/19 gabapentin 300 mg PO HS 01/17/19 10/29/19 dicyclomine 10 mg PO QID #12 cap 05/14/19 10/29/19 ondansetron 4 mg PO Q8H PRN #14 tab 05/14/19 10/29/19 Previous Rx's Medication Instructions Recorded dicyclomine 10 mg PO QID #12 cap 05/14/19 ondansetron 4 mg PO Q8H PRN #14 tab 05/14/19 Allergies Allergy/AdvReac Type Severity Reaction Status Date / Time sumatriptan [From Imitrex] Allergy Intermediate arm,shoulder Unverified 05/09/19 15:08 pain-head stinging zolpidem tartrate Allergy Intermediate felt Unverified 05/09/19 15:08 [From Ambien] intoxicated cefaclor [From Ceclor] Allergy Unknown unknown Unverified 05/09/19 15:08 bupropion AdvReac Intermediate Other (See Verified 05/09/19 15:08 Comment) amoxicillin trihydrate AdvReac Mild Diarrhea Unverified 05/09/19 15:08 [From Augmentin] potassium clavulanate AdvReac Mild Diarrhea Unverified 05/09/19 15:08 [From Augmentin] General KARLO: 3 Review of Systems <Artemio See MD - Last Filed: 10/29/19 07:47> Narrative: 06/16 Review of Systems completed and is negative except as stated above in HPI (Systems reviewed: Const, ENT, Resp, CV, GI, , MSK, Skin, Neuro, Psych) PFSH <Artemio See MD - Last Filed: 10/29/19 07:47> Medical History Chronic low back pain Depression Endometriosis GERD (gastroesophageal reflux disease) (Chronic) Lactose intolerance Posttraumatic stress disorder Primary fibromyalgia syndrome Vitamin D deficiency Surgical History Arthroplasty of knee Colonoscopy - MAC Diagnostic Laproscopy Tonsillectomy and adenoidectomy Social History Smoking/Tobacco Use Status: Current every day Tobacco Type: cigarettes Alcohol Intake: current Alcohol Intake frequency: holidays/special occasions only Drug use: Occasionally Substance use type: marijuana Do you feel safe at home: Yes Do you feel safe in your relationship?: Yes Exam <Artemio See MD - Last Filed: 10/29/19 07:47> Narrative Exam Narrative: Vitals: Afebrile. Normal vitals and room air pulse oximetry. Const: WDWN female crying but calm. HEENT: NC/AT. Normal facial exam. Eyes: Normal conjunctiva and sclera. Neck: Supple. Trachea midline. Lungs: Normal respiratory effort. Lungs are clear. Cor: RRR without murmur/gallop. Good radial pulses. GI: Soft. NT/ND. No guarding or rebound. Neuro: A+O x 3. Normal speech, mentation, gait. Cranial nerves II - XII grossly intact. No gross motor or sensory deficit. Psych: Depressed, crying, anxious. Reports suicidal ideation but feels safe here. Judgment and insight appear intact. Ext: No C/C/E. Skin: Warm and dry without rash. Sign Out <Artemio See MD - Last Filed: 10/29/19 07:47> Sign Out Data: Sign Out Comment: pending mental health eval Last updated by Artemio See MD at 10/29/19 07:47
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
[2019-10-29 04:28] LABS: Bilirubin Negative (Negative); Blood Trace-lysed (Negative); Clarity Sl Cloudy (Clear); Glucose Negative (Negative); Ketones Negative (Negative); Leukocyte Esterase Trace (Negative); Nitrite Negative (Negative); Specific Gravity 1.015 (1.005-1.025); Urobilinogen 0.2 EU/dL (Up TO 0.2); pH 7.5 (5-8)
[2019-10-29 04:28] LABS: Abs Immature Grans 0.03 k/cumm (0.0-0.09); Absolute Basophil Count 0.03 k/cumm (0.0-0.2); Absolute Eosinophil Count 0.03 k/cumm (0.0-0.7); Absolute Lymphocyte Count 1.92 k/cumm (1.2-3.4); Absolute Monocyte Count 0.69 k/cumm (0.11-0.7); Absolute Neutrophil Count 5.61 k/cumm (1.2-6.7); Basophils % 0.4; Eosinophils % 0.4; HGB 14.5 g/dL (12.0-15.5); Immature Grans % 0.4 %; Lymphocytes % 23.1; Mean Corp. HGB Concentration 33.7 g/dL (32.0-36.0); Mean Corpuscular Hemoglobin 30.3 pg (27.0-33.0); Monocytes % 8.3; Neutrophils % 67.4; Platelet Count 323 x1000/uL (130-400); RBC 4.78 m/cumm (4.00-5.20); RBC Distribution Width 13.2 % (11.7-14.6); White Blood Cell Count 8.31 k/cumm (4.4-10.8)
[2019-10-29 04:40] LABS: HCG Qual (Serum) Negative
[2019-10-29 04:50] LABS: ALT 30 U/L (14-59); AST 29 U/L (15-37); Albumin 4.3 g/dL (3.4-5.0); Alkaline Phosphatase 71 U/L (46-116); Anion Gap 11.7 mmol/L (3-11); BUN 8 mg/dL (7-18); Bilirubin, Total 0.1 mg/dL (0.2-1.0); CO2 27.3 mmol/L (21.0-32.0); CREATININE 0.74 mg/dL (0.55-1.02); Calcium 8.4 mg/dL (8.5-10.1); Chloride 104 mmol/L (98-107); ETHANOL BLOOD 145.4 mg/dL (<3); Glucose 102 mg/dL (74-106); Potassium 3.6 mmol/L (3.5-5.1); Sodium 143 mmol/L (136-145); TSH 2.02 uIU/mL (0.36-3.74); Total Protein 7.8 g/dL (6.4-8.2)
[2019-10-29 04:53] LABS: *AMPHETAMINES SCREEN URINE Negative (Negative); *BARBITURATES SCREEN URINE Negative (Negative); *BENZODIAZEPINES SCREEN URINE Negative (Negative); Cannabinoids THC Negative (Negative); Cocaine Screen,Urine Negative (Negative); METHADONE URINE SCREEN Negative (Negative); OPIATES URINE SCREEN Negative (Negative)
[2019-10-29 04:55] LABS: Tricyclic Antidepressants Negative (Negative)
[2019-10-29 04:59] LABS: Salicylate 4.3 mg/dL (2.8-20.0)
[2019-10-29 05:01] LABS: Bacteria Few HPF (Negative); Crystals Many Amorphous HPF (Negative); Epithelial Cells Few HPF (Negative); RBC 0-2 HPF (0-2)
[2019-10-29 05:02] LABS: C & S Indicated? Yes
[2019-10-29 05:03] LABS: Casts Negative LPF (Negative); Mucus Negative (Negative)
[2019-10-29 05:17] LABS: Acetaminophen < 2 ug/mL (10-30)
--- NOTE | 2019-10-29 08:15 | PDOC.MHCN_ITS ---
Date of service: 10/29/19 Time of Service: 08:15 Mental Health Crisis Note Presenting Issue How did you arrive at the ED and why did you come: S called 911 this morning after having severe and persistent thoughts of SI. Precipitating Factors S is indecisive of thoughts of SI right now but is willing to safety plan with me for safety. She did report that her thoughts were intense last night. Disposition BEHAVIOR: S is cooperative but is also guarded. She is experiencing a great deal of stress relating to the unexpected SI of her brother and possible job loss. She is soft spoken and tearful. EYE CONTACT: Eye contact is resistant at first as she pulls the blanket up over her head. Once she realizes that this clinician was not looking at a hospital admission at this time but rather wanted to work with her she was more open and engaged with eye contact. MOOD: S is depressed and overwhelmed with all she is experiencing. AFFECT: S is tearful and withdrawn. APPETITE: S reports in the last week her appetite has been normal. SLEEP(trouble falling/staying asleep: S reported that her sleep in the last week has been normal. Plan S agrees to outreach calls form this clinician in the next couple of days. She agrees to allow a referral for case management to assist with navigating her current stressors relating to work and income. This clinician has left a voicemail for her therapist and her boyfriend's voicemail is full but I will continue to try to connect. Provisional Diagnosis Adjustment d/o unspecified Signature Clinician's Name/Title: Daksha Gill MS, [facility] Emergency Services Clinician [facility]
[2019-10-29 08:38] VITALS: BP 122/78; PULSE 105; RESP 20; TEMP 36.7; O2SAT 99
[2019-10-29 08:44] VITALS: BP 122/78; PULSE 105; RESP 20; TEMP 36.7; O2SAT 99
== END 2019-10-29 08:48 | disposition home or self-care (01) ==
LOC: ER 09:01
PROVIDERS: Emergency Medicine; Emergency Provider Student in an Organized Health Care Education/Training Program; PCP Internal Medicine
DX: F10.120 Alcohol abuse with intoxication, uncomplicated (principal); F32.9 Major depressive disorder, single episode, unspecified; Y90.6 Blood alcohol level of 120-199 mg/100 ml; R45.851 Suicidal ideations
CPT/HCPCS: 36415; 80053; 80307; 81025; 99283; 80320; 80329; 81003; 81015; 84443; 84703; 85025; 87086; 99284

== ENCOUNTER 2020-01-11 19:13 | Emergency (ER) | payer OTHER, SELFPAY ==
[2020-01-11 19:18] VITALS: BP 139/81; PULSE 106; RESP 16; TEMP 36.7; O2SAT 98
[2020-01-11 19:25] VITALS: RESP 16
--- NOTE | 2020-01-11 19:41 | W.ED.GENAD ---
Discharge Plan Disposition Patient Disposition: HOME Condition: Good Discharge Details Chief Complaint: Chest Pain Clinical Impression: Chest pain, Muscle strain Primary Care Provider: Nora Wisdom ED Provider: Danny Milner Home Meds and New Rx's Prescriptions: Continued norethindrone acetate 5 MG tablet 5 mg PO HS RF: 0 ergocalciferol (vitamin D2) [Vitamin D2] 50,000 UNIT capsule 50,000 units PO .TWICE WEEKLY RF: 0 methylphenidate HCl 10 MG tablet 10 mg PO BID RF: 0 methylphenidate HCl [Ritalin] 20 MG tablet 30 mg PO DAILY RF: 0 gabapentin 300 mg Capsule 300 mg PO HS RF: 0 Discharge Instructions Instructions: Chest Pain (ED) Additional Instructions: At this time your work-up shows no evidence of cardiac abnormality, heart attack, blood clots in your lungs, or pneumonia. I suspect that you may have had a mild virus several your symptoms of note, as well as mild muscle strain in your chest. Please take Tylenol Motrin as needed for pain. I suspect that it is unlikely that you have coronavirus, if your tests are positive you will be contacted in the next 48-72 hours. If you do not hear anything back from the hospital within that time please contact us. If you notice any worsening of your symptoms, or any new symptoms such as vomiting, diarrhea, fever, chills, shortness of breath, chest pain, numbness, weakness, or fainting , please return immediately to the emergency department for reevaluation. Please follow up with your primary care provider as soon as possible for reassessment and reevaluation. As always, it was a pleasure participating in your medical care today. Referrals: Nora Wisdom [Primary Care Provider] - Discharge Data Discharge Date/Time-TO BE ENTERED AT DEPARTURE: 01/11/20 21:40 Medical Decision Making <Troy Gibbs MD - Last Filed: 01/20/20 19:04> 1946 --24-year-old female smoker on progesterone-based oral contraceptive, history of fibromyalgia, here today with right anterior upper pleuritic chest pain that is reproducible on exam with associated mild shortness of breath as well as some left calf discomfort earlier today. Patient is tachycardic. She is saturating well in no respiratory distress. She is normotensive. Patient is afebrile. She has had mild cough and scratchy throat. We will send COVID-19 testing. Considered cardiac etiology. A screening ECG was reviewed and interpreted by me: Normal sinus rhythm 84 bpm, normal axis, S1Q3T3 is present. Consider acute pulmonary embolism. Plan to obtain CT of the chest. <Danny Milner DO - Last Filed: 01/11/20 21:42> 24-year-old female who signed out to me by Dr. Troy Gibbs, please refer to his HPI, documentation physical exam and assessment and plan. At time of signout differential was highest for PE versus a musculoskeletal pathology for her symptoms. CT angios has returned, per virtual radiology there is no evidence of acute abnormality, PE or other pathology. Patient's laboratory work-up is notably benign, troponin, labs, electrolytes and renal function are normal. Low likelihood for coronavirus, but test was performed out of an abundance of precaution. Repeat exam demonstrates a notable reproducible component, suspect musculoskeletal strain worsened by her fibromyalgia and chronic osteoporosis. At this time with no evidence of acute life-threatening abnormality I do feel that the patient be discharged home. Will give Lidoderm patch for the anterior chest wall, recommend NSAIDs. Discussed red flags for which to return. I have extensively reviewed the treatment plan and discharge instructions with the patient. I have addressed all patient concerns at this time. The patient was made aware of what symptoms to monitor for that would warrant a return to the emergency department. Discussed the plan with the patient, they demonstrate verbal understanding and agreement with our assessment and plan at this time. FINDINGS: Pulmonary arteries: Normal. No pulmonary emboli. Aorta: Unremarkable. No aortic aneurysm. No aortic dissection. Lungs: Unremarkable. No consolidation. No masses. Pleural space: Unremarkable. No pneumothorax. No pleural effusion. Heart: Unremarkable. No cardiomegaly. No pericardial effusion. Lymph nodes: Unremarkable. No enlarged lymph nodes. Bones/joints: Unremarkable. No acute fracture. Soft tissues: Unremarkable. IMPRESSION: No acute findings. Thank you for allowing us to participate in the care of your patient. Dictated and Authenticated by: Kota Calix DO 01/11/2020 8:52 PM Eastern Time ([place] & [place]) HPI <Troy Gibbs MD - Last Filed: 01/20/20 19:04> General Mode of arrival: ambulatory. Date/Time Provider Initiated Documentation: 01/11/20 19:19. Limitations to Documentation: no limitations. Information obtained by: patient. HPI Narrative: 24-year-old female with multiple medical problems including history of fibromyalgia, GERD, endometriosis, smoker, presents with chief complaint of chest pain. Patient notes right upper anterior chest pain that is been present for the past 3 days. Pain is worse when she takes a deep breath and also on palpation of her anterior chest. She feels pain is likely muscular in nature. She does note that she has had some cough but does state that she is a smoker and intermittently has cough. She also notes a scratchy throat over the past few days. She denies fever. She does have associated shortness of breath that is mild. She has had no recent travel but does note that her significant other is a cash grain grower and has been to [place] over the past couple weeks. He has had no respiratory illness. Patient also notes that she had a cramp in her left calf earlier today. No leg swelling. No recent surgery or immobility. Related Data Home Medications Medication Instructions Recorded Confirmed norethindrone acetate 5 mg PO HS 03/15/13 01/11/20 ergocalciferol (vitamin D2) 50,000 units PO .TWICE WEEKLY 12/20/15 01/11/20 [Vitamin D2] methylphenidate HCl 10 mg PO BID 08/20/17 01/11/20 methylphenidate HCl [Ritalin] 30 mg PO DAILY 08/20/17 01/11/20 gabapentin 300 mg PO HS 01/17/19 01/11/20 Allergies Allergy/AdvReac Type Severity Reaction Status Date / Time sumatriptan [From Imitrex] Allergy Intermediate arm,shoulder Unverified 05/09/19 15:08 pain-head stinging zolpidem tartrate Allergy Intermediate felt Unverified 05/09/19 15:08 [From Ambien] intoxicated cefaclor [From Ceclor] Allergy Unknown unknown Unverified 05/09/19 15:08 bupropion AdvReac Intermediate Other (See Verified 05/09/19 15:08 Comment) amoxicillin trihydrate AdvReac Mild Diarrhea Unverified 05/09/19 15:08 [From Augmentin] potassium clavulanate AdvReac Mild Diarrhea Unverified 05/09/19 15:08 [From Augmentin] General Stated Complaint: Chest Pain KARLO: 3 Review of Systems <Troy Gibbs MD - Last Filed: 01/20/20 19:04> All systems reviewed & are unremarkable except as noted in HPI and below Constitutional Constitutional: Denies fever(s) ENT Ears, Nose, Mouth, and Throat: Reports as per HPI Cardiovascular Cardiovascular: Reports as per HPI Respiratory Respiratory: Reports as per HPI PFSH <Troy Gibbs MD - Last Filed: 01/20/20 19:04> Medical History Chronic low back pain Depression Endometriosis GERD (gastroesophageal reflux disease) (Chronic) Lactose intolerance Posttraumatic stress disorder Primary fibromyalgia syndrome Vitamin D deficiency Surgical History Arthroplasty of knee Colonoscopy - MAC Diagnostic Laproscopy Tonsillectomy and adenoidectomy Family History Mother Personal history of malignant neoplasm Social History Smoking/Tobacco Use Status: Current every day Tobacco Type: cigarettes Alcohol Intake: current Alcohol Intake frequency: holidays/special occasions only Drug use: Occasionally Substance use type: marijuana Do you feel safe at home: Yes Do you feel safe in your relationship?: Yes Exam <Troy Gibbs MD - Last Filed: 01/20/20 19:04> Const General: cooperative and no acute distress HENMT Mouth: moist mucous membranes Eyes Conjunctivae: normal conjunctivae Sclera: normal sclerae Neck Neck: trachea midline and supple Chest Chest: no crepitus and tenderness (Right anterior upper chest) Resp Auscultation: clear to auscultation bilaterally, no rales, no rhonchi and no wheezes Cardio Jugular venous pressure: no JVD Rate: tachycardic Rhythm: regular rhythm Heart Sounds: no gallops, no murmurs and no rubs GI Palpation: soft, not firm, no guarding, no masses, not rigid and nontender Skin General skin exam: no rashes or lesions noted Neuro General: patient alert, patient awake and tone normal Extrem General: no calf tenderness bilaterally and no edema Psych Appearance: grossly normal Mental Status: mental status grossly normal Course <Troy Gibbs MD - Last Filed: 01/20/20 19:04> Vital Signs Vital signs: Vital Signs Temperature 36.7 C 01/11/20 19:18 Pulse 106 H 01/11/20 19:18 Respiratory Rate 16 01/11/20 19:18 Blood Pressure 139/81 01/11/20 19:18 Pulse Oximetry 98 01/11/20 19:18 Temperature 36.7 C 01/11/20 19:18 Temperature Source Skin 01/11/20 19:18 Pulse 106 H 01/11/20 19:18 Respiratory Rate 16 01/11/20 19:25 Respiratory Effort 01/11/20 19:25 Respiratory Depth Normal 01/11/20 19:25 Respiratory Pattern Normal 01/11/20 19:25 Blood Pressure 139/81 01/11/20 19:18 Blood Pressure Position Sitting 01/11/20 19:18 Pulse Oximetry 98 01/11/20 19:18 Oxygen Delivery Method Room Air 01/11/20 19:18 Oxygen Flow Rate 0 01/11/20 19:18 Pain Level 6 01/11/20 19:18 Sign Out <Troy Gibbs MD - Last Filed: 01/20/20 19:04> Sign Out Data: Sign Out Comment: Follow-up labs, CT imaging, reassess patient for disposition. Last updated by Troy Gibbs MD at 01/11/20 19:57
[2020-01-11 20:14] LABS: Abs Immature Grans 0.04 k/cumm (0.0-0.09); Absolute Basophil Count 0.02 k/cumm (0.0-0.2); Absolute Eosinophil Count 0.11 k/cumm (0.0-0.7); Absolute Neutrophil Count 8.15 k/cumm (1.2-6.7); Basophils % 0.2; Eosinophils % 0.9; HCT 42.8 % (36.0-46.0); HGB 14.5 g/dL (12.0-15.5); Immature Grans % 0.3 %; Lymphocytes % 23.6; Mean Corp. HGB Concentration 33.9 g/dL (32.0-36.0); Mean Corpuscular Hemoglobin 30.5 pg (27.0-33.0); Mean Corpuscular Volume 90.1 fL (80-95); Mean Platelet Volume 9.8 fL (8.0-11.0); Monocytes % 6.9; Neutrophils % 68.1; Platelet Count 298 x1000/uL (130-400); RBC 4.75 m/cumm (4.00-5.20); RBC Distribution Width 13.8 % (11.7-14.6); White Blood Cell Count 11.97 k/cumm (4.4-10.8)
[2020-01-11 20:22] LABS: ALT 28 U/L (14-59); AST 26 U/L (15-37); Absolute Lymphocyte Count 2.82 k/cumm (1.2-3.4); Absolute Monocyte Count 0.83 k/cumm (0.11-0.7); Alkaline Phosphatase 66 U/L (46-116); Anion Gap 7.6 mmol/L (3-11); BUN 11 mg/dL (7-18); Bilirubin, Total 0.3 mg/dL (0.2-1.0); CO2 27.4 mmol/L (21.0-32.0); CREATININE 0.86 mg/dL (0.55-1.02); Calcium 9.5 mg/dL (8.5-10.1); Chloride 102 mmol/L (98-107); Glucose 89 mg/dL (74-106); Potassium 3.4 mmol/L (3.5-5.1); Sodium 137 mmol/L (136-145); Total Protein 7.2 g/dL (6.4-8.2); Troponin I < 0.05 ng/Ml (<0.06)
[2020-01-11] MEDS: Omnipaque 350 MG/ML 100 ML BTL IJ (20:28)
[2020-01-11] MEDS: Normal Saline - Diluent 50 ML VIAL IV (20:31)
[2020-01-11] MEDS: Normal Saline Flush 10 ML SYR IVP (20:31)
--- NOTE | 2020-01-11 20:35 | DI.CT_ITS ---
EXAM: CT CHEST PE CTA CLINICAL HISTORY: chest pain right sided, tachycardic. TECHNIQUE: Imaging Protocol: Axial CT angiography was performed with multi-slice acquisition and mu lti-planar and/or 3D reconstructions. CONTRAST MATERIAL: Intravenous: Omnipaque 350 Contrast volume:structured data in ml COMPARISON: CT CT ABDOMEN PELVIS W from 05/09/2019 FINDINGS: Pulmonary Arteries: No evidence of filling defect to suggest pulmonary emboli. Tracheobronchial tree: Patent where visualized. Mediastinum and Tiana: No dominant adenopathy or fluid collection. Pulmonary parenchyma: No consolidation or dominant measurable mass. No architectural distortion. Pleura: No effusion or pneumothorax. Heart: The heart is not dilated. No coronary artery calcifications are seen. Aorta: Thoracic aorta non-dilated. Upper abdomen: Unremarkable appearance of visualized portions of liver, spleen, pancreas, adrenals, a nd kidneys.. Bones: Normal. Tubes, Catheters, and Lines: IMPRESSION: No evidence of pulmonary embolism. RADIATION DOSE DELIVERED: Total DLP DATA REPOSITORY: All CT scans at this facility are submitted to the National Radiology Data Registry (NRDR) Dose Index Registry (DIR) with the [employer] (ACR). RADIATION OPTIMIZATION: All CT scans at this facility use at least one of these dose optimization te chniques: automated exposure control; mA and/or kV adjustment per patient size (includes targeted exa ms where dose is matched to clinical indication); or iterative reconstruction.
--- NOTE | 2020-01-11 20:52 | DI.VRAD_ITS ---
PROCEDURE INFORMATION: Exam: CT Angiography Chest With Contrast Exam date and time: 01/11/2020 7:40 PM Age: 24 years old Clinical indication: Shortness of breath and other: Tachycardic; Right-sided chest pain; Patient HX: SOB, tachycardic, right sided chest pain TECHNIQUE: Imaging protocol: Computed tomographic angiography of the chest with intravenous contrast. 3D rendering: MIP and/or 3D reconstructed images were created by the technologist. Radiation optimization: All CT scans at this facility use at least one of these dose optimization techniques: automated exposure control; mA and/or kV adjustment per patient size (includes targeted exams where dose is matched to clinical indication); or iterative reconstruction. Contrast material: OMNIPAQUE 350; Contrast volume: 61 ml; Contrast route: IV LAC; COMPARISON: No relevant prior studies available. FINDINGS: Pulmonary arteries: Normal. No pulmonary emboli. Aorta: Unremarkable. No aortic aneurysm. No aortic dissection. Lungs: Unremarkable. No consolidation. No masses. Pleural space: Unremarkable. No pneumothorax. No pleural effusion. Heart: Unremarkable. No cardiomegaly. No pericardial effusion. Lymph nodes: Unremarkable. No enlarged lymph nodes. Bones/joints: Unremarkable. No acute fracture. Soft tissues: Unremarkable. IMPRESSION: No acute findings. Dictated and Authenticated by: Kota Calix MD. Ordering:JOSE Simmons MD
[2020-01-11] MEDS: Lidocaine 5% Patch 1 PATCH TP (21:38)
[2020-01-11 21:39] VITALS: BP 114/73; PULSE 77; RESP 20; O2SAT 100
[2020-01-13 13:04] LABS: COVID-19 RT-PCR UVMMC Result Negative (Negative)
--- NOTE | 2020-01-14 16:10 | NUR.NOTE ---
Nursing Note: Patient's Covid Test result released to patient per Dr hardwick
--- NOTE | 2020-01-15 10:43 | NUR.NOTE ---
attempted to contact patient for Covid 19 results. message left for patient to return call to Janes Du RN at [phone] Nursing Note:
== END 2020-01-11 21:40 | disposition home or self-care (01) ==
PROVIDERS: Student in an Organized Health Care Education/Training Program; Emergency Provider Student in an Organized Health Care Education/Training Program; PCP Internal Medicine
DX: S29.011A Strain of muscle and tendon of front wall of thorax, initial encounter (principal); X58.XXXA Exposure to other specified factors, initial encounter; R06.02 Shortness of breath; M79.7 Fibromyalgia
CPT/HCPCS: 36415; 71275; 80053; 81025; 93005; 99285; U0003; 84484; 85025; 93010; 99284; J3490

== ENCOUNTER 2020-05-05 04:37 | Outpatient (CLI) | payer OTHER, SELFPAY ==
--- NOTE | 2020-05-05 | DI.DEXA_ITS ---
EXAM: XR DEXA BONE DENSITY W/WO BERTHA CLINICAL HISTORY: OSTEOPOROSIS, M81.0 TECHNIQUE: COMPARISON: 07/20/2015. FINDINGS: Lateral Spine Image: Unremarkable. No compression deformities identified. Left hip: Total T-Score: -2.3. This compares with -2.4 on the prior examination. T--scores: Osteopenia and increased fracture risk. Lumbar Spine: Total T-Score: -2.7. This compares with -3.0 on the prior examination. T--scores: Osteoporosis and high fracture risk. IMPRESSION: Osteoporosis in the lumbar spine.
== END 2020-05-05 04:57 ==
PROVIDERS: PCP Nurse Practitioner Acute Care; Visit Provider Nurse Practitioner Acute Care
DX: M85.88 Other specified disorders of bone density and structure, other site (principal)
CPT/HCPCS: 77080

== ENCOUNTER 2020-06-29 01:17 | Outpatient (CLI) | payer OTHER, SELFPAY ==
--- NOTE | 2020-06-29 14:50 | DI.MRI_ITS ---
EXAM: MR LOWER JOINT LT WO CLINICAL HISTORY: ACUTE ONSET LT THIGH PAIN,SUSPECT TEAR OF LT ILIOSPSOAS,M79.652. TECHNIQUE: Multiplanar multisequence MRI was performed. COMPARISON: No exams were available for comparison FINDINGS: MR examination of the left hip was performed according to the usual protocol. There is reportedly a suspected iliopsoas tear the left. The iliopsoas muscle and tendon appear normal. There is normal signal of the muscles tendons of the left hip and the right hip. No bony signal abnormality seen in the pelvis. The SI joints appear int act. There is abnormal signal on the medial aspect of the intertrochanteric region the femur and there is subtle abnormal linear signal in the left femoral neck. Findings are suggestive stress reaction with possibly an incipient stress fracture at this site. No space-occupying lesion identified. Soft tissues of the pelvis and lower abdomen are unremarkable in appearance as visualized, no adenopa thy, unremarkable appearance of the lower poles of the kidneys. Field Mechanic/Site Lead structures appear intact. IMPRESSION: Findings suggesting stress reaction/incipient stress fracture left femoral neck and intertrochanteri c region medially as described above. No evidence of an iliopsoas tear. DATA REPOSITORY:
== END 2020-06-29 01:37 ==
PROVIDERS: PCP Nurse Practitioner Acute Care; Visit Provider Nurse Practitioner Acute Care
DX: M79.652 Pain in left thigh (principal)
CPT/HCPCS: 73721

== ENCOUNTER 2020-07-13 12:45 | Outpatient (CLI) | payer MEDICAID, SELFPAY ==
--- NOTE | 2020-07-13 11:30 | DI.RAD_ITS ---
EXAM: XR HIP LT COMPLETE AP PELVIS CLINICAL HISTORY: Hip pain. TECHNIQUE: 2D digital imaging was performed. COMPARISON: No exams were available for comparison FINDINGS: BONES: No acute fracture is present. No bony destructive lesion is seen. JOINTS: No dislocation present. SOFT TISSUE: Normal. IMPRESSION: Unremarkable radiographs of the left hip. Unremarkable radiographs of the pelvis DATA REPOSITORY: RADIATION DOSE DELIVERED:
== END 2020-07-13 13:05 ==
PROVIDERS: PCP Nurse Practitioner Acute Care; Referring Provider Nurse Practitioner Acute Care; Visit Provider Student in an Organized Health Care Education/Training Program
DX: M25.552 Pain in left hip (principal)
CPT/HCPCS: 73502

== ENCOUNTER 2020-09-23 03:23 | Outpatient (CLI) | payer MEDICAID, SELFPAY ==
--- NOTE | 2020-09-23 | DI.CT_ITS ---
EXAM: CT LOWER EXTREMITY LT WO CLINICAL HISTORY: STRESS FX HIP WITH DELAYED HEALING,M84.359G,F/U,EVALUATE FOR HEALING. TECHNIQUE: Imaging Protocol: Axial computed tomography images with coronal and sagittal reformatted images were created and reviewed. COMPARISON: MR MR LOWER JOINT LT WO from 06/29/2020 MR MR LOWER JOINT LT WO from 06/29/2020 CR XR HIP LT COMPLETE AP PELVIS from 07/13/2020 CR XR HIP LT COMPLETE AP PELVIS from 07/13/2020 FINDINGS: The obliquely oriented lucency in the medial cortex of the left femoral neck is again seen and is unc hanged. This is compared to the x-ray and MRI from JuneJuly 2020. No periosteal reaction is identified. No extension of the lucency is seen. The bone is normally mineralized. The left hip i s well maintained. The soft tissues are unremarkable. IMPRESSION: Stable lucency through the medial cortex of the left femoral neck. RADIATION DOSE DELIVERED: 215.83mGy.cm Total DLP 215.83mGy.cm Total DLP DATA REPOSITORY: All CT scans at this facility are submitted to the National Radiology Data Registry (NRDR) Dose Index Registry (DIR) with the [employer] (ACR). RADIATION OPTIMIZATION: All CT scans at this facility use at least one of these dose optimization te chniques: automated exposure control; mA and/or kV adjustment per patient size (includes targeted exa ms where dose is matched to clinical indication); or iterative reconstruction.
== END 2020-09-23 03:43 ==
PROVIDERS: PCP Nurse Practitioner Acute Care; Visit Provider Family Medicine
DX: M84.352 Stress fracture, left femur (principal)
CPT/HCPCS: 73700

== ENCOUNTER 2020-11-30 02:35 | Outpatient (CLI) | payer MEDICAID, SELFPAY ==
--- NOTE | 2020-11-30 14:35 | DI.MRI_ITS ---
EXAM: MR LOWER JOINT LT WO CLINICAL HISTORY: PREVIOUS STRESS FX LT FEMORAL NECK,EVALUATE FOR CHANGE,INJURY,T14.8XXA. TECHNIQUE: Multiplanar multisequence MRI was performed. COMPARISON: MR MR LOWER JOINT LT WO from 06/29/2020 CR XR HIP LT COMPLETE AP PELVIS from 07/13/2020 CR XR HIP LT COMPLETE AP PELVIS from 07/13/[address] LOWER EXTREMITY LT WO from 09/23/2020 FINDINGS: The marrow signal is normal. No fracture is visible. There is no collapse of the femoral heads. T here is no evidence of joint effusion. The SI joints are unremarkable. The uterus, ovaries and blad juan david appear within normal limits. IMPRESSION: No evidence of stress fracture or avascular necrosis. DATA REPOSITORY:
== END 2020-11-30 02:55 ==
PROVIDERS: PCP Nurse Practitioner Acute Care; Visit Provider Nurse Practitioner Acute Care
DX: M84.352D Stress fracture, left femur, subsequent encounter for fracture with routine healing (principal)
CPT/HCPCS: 73721

== ENCOUNTER 2021-07-11 04:13 | Outpatient (CLI) | payer MEDICAID, SELFPAY ==
[2021-07-11 14:50] LABS: Abs Immature Grans 0.07 10^3/uL (0.0-0.06); Absolute Basophil Count 0.05 10^3/uL (0.0-0.2); Absolute Eosinophil Count 0.11 10^3/uL (0.0-0.7); Absolute Monocyte Count 0.79 10^3/uL (0.1-0.8); Absolute Neutrophil Count 7.17 10^3/uL (1.2-6.7); Basophils % 0.5; HCT 43.2 % (36.0-46.0); HGB 14.1 g/dL (11.2-15.7); Immature Grans % 0.7; Lymphocytes % 23.4; MCH 30.7 pg (27.0-33.0); MCHC 32.6 % (32.0-36.0); MCV 93.9 fL (80-95); MPV 9.7 fL (8.0-11.0); Monocytes % 7.4; Nucleated RBC 0 %; Platelet Count 369 10^3/uL (130-400); RDW 12.7 % (11.7-14.6); RDW-SD 43.8 fL; WBC 10.69 10^3/uL (4.4-10.8)
[2021-07-11 17:10] LABS: ALT 69 U/L (14-59); AST 34 U/L (15-37); Albumin 3.9 g/dL (3.4-5.0); Alkaline Phosphatase 82 U/L (46-116); Anion Gap 12.4 mmol/L (3-11); BUN 13 mg/dL (7-18); Bilirubin, Total 0.3 mg/dL (0.2-1.0); CO2 26.6 mmol/L (21.0-32.0); CREATININE 1.1 mg/dL (0.55-1.02); Calcium 9.6 mg/dL (8.5-10.1); Chloride 103 mmol/L (98-107); Estimated GFR 59.58 (mL/min/1.73m2); Glucose 91 mg/dL (74-106); Magnesium 1.9 mg/dL (1.8-2.4); Potassium 4.6 mmol/L (3.5-5.1); Sodium 142 mmol/L (136-145); TSH 1.21 uIU/mL (0.36-3.74); Total Protein 7.2 g/dL (6.4-8.2)
[2021-07-11 17:16] LABS: Vitamin D 25 Total 38.3 ng/mL (30-100)
[2021-07-11 17:35] LABS: PHOSPHORUS 3.3 mg/dL (2.6-4.7)
[2021-07-11 22:09] LABS: Creatinine,Urine 21.77 mg/dL; Sodium, Urine 12 mmol/L
[2021-07-11 22:19] LABS: CLEAVED CELLS 55 mmol/24h (40-220); Total Volume 4600 ml
[2021-07-13 08:52] LABS: Calcium Urine 9.5 mg/dL (See Note); Calcium Urine 24 hr 437 mg/24hrs (100-300); Timed Urine Volume 4600 mL
[2021-07-13 11:59] LABS: Parathyroid Hormone,Intact 23 pg/mL (19-88)
[2021-07-13 15:56] LABS: Adrenocorticotropic Hormone, P 30 pg/mL
[2021-07-14 23:35] LABS: Cortisol, U 7.4 mcg/24 h (3.5-45); Urine Volume 4600 mL
[2021-07-16 09:41] LABS: Testosterone, Free 0.71 ng/dL (0.06-1.06); Testosterone, Total 21 ng/dL (8-60)
== END 2021-07-11 04:14 | disposition home or self-care (01) ==
LOC: LBO 04:13
PROVIDERS: PCP Nurse Practitioner Acute Care; Visit Provider Internal Medicine Endocrinology, Diabetes & Metabolism
DX: M85.88 Other specified disorders of bone density and structure, other site (principal)
CPT/HCPCS: 36415; 80053; 82306; 84402; 84403; 82024; 82340; 82530; 82570; 83735; 83789; 83970; 84100; 84300; 84443; 85025

== ENCOUNTER 2021-10-19 01:49 | Outpatient (CLI) | payer MEDICAID, SELFPAY ==
--- NOTE | 2021-10-19 13:19 | DI.RAD_ITS ---
Exam(s) XR FOOT RT COMPLETE EXAM: XR FOOT RT COMPLETE CLINICAL HISTORY: RT FOOT PAIN, M79.671,BRUISE,KNOWN OSTEOPOROSIS, ATRAUMATIC FXS,? ACUTE FX. TECHNIQUE: 2D digital imaging was performed of the right foot. Three images were obtained. AP, obl ique and lateral views were obtained. COMPARISON: No exams were available for comparison FINDINGS: BONES: No acute fracture is present. No bony destructive lesion is seen. JOINTS: No dislocation present. SOFT TISSUE: Normal. IMPRESSION: Unremarkable radiographs of the right foot. DATA REPOSITORY: RADIATION DOSE DELIVERED:
== END 2021-10-19 02:09 ==
PROVIDERS: PCP Nurse Practitioner Acute Care; Visit Provider Nurse Practitioner Acute Care
DX: M79.671 Pain in right foot (principal)
CPT/HCPCS: 73630

== ENCOUNTER 2022-03-01 12:56 | Outpatient (CLI) | payer MEDICARE, MEDICAID, SELFPAY ==
[2022-03-01 16:41] LABS: Abs Immature Grans 0.07 10^3/uL (0.0-0.06); Absolute Basophil Count 0.07 10^3/uL (0.0-0.2); Absolute Lymphocyte Count 3.19 10^3/uL (1.2-3.4); Basophils % 0.4; ESR 25 mm/hr (0-20); Eosinophils % 0.6; HCT 43.3 % (36.0-46.0); HGB 14.8 g/dL (11.2-15.7); Immature Grans % 0.4; Lymphocytes % 19.6; MCHC 34.2 % (32.0-36.0); MCV 94 fL (80-95); MPV 10.5 fL (8.0-11.0); Monocytes % 5.3; Neutrophils % 73.7; Platelet Count 351 10^3/uL (130-400); RBC 4.63 10^6/uL (3.93-5.22); RDW 11.8 % (11.7-14.6); RDW-SD 40.7 fL; WBC 16.27 10^3/uL (4.4-10.8)
[2022-03-01 16:43] LABS: Absolute Monocyte Count 0.86 10^3/uL (0.1-0.8); Absolute Neutrophil Count 11.99 10^3/uL (1.2-6.7)
[2022-03-01 16:57] LABS: Bilirubin Negative (Negative); Blood Trace-intact (Negative); Clarity Clear (Clear); Glucose Negative (Negative); Ketones Negative (Negative); Leukocyte Esterase Negative (Negative); Nitrite Negative (Negative); Urobilinogen 0.2 EU/dL (Up TO 0.2)
[2022-03-01 17:09] LABS: Bacteria Few HPF (Negative); C & S Indicated? No; Crystals Negative HPF (Negative); Epithelial Cells Many HPF (Negative); Mucus Trace (Negative); RBC 0-2 HPF (0-2)
[2022-03-01 17:17] LABS: ALT 38 U/L (14-59); AST 22 U/L (15-37); Albumin 3.7 g/dL (3.4-5.0); Alkaline Phosphatase 66 U/L (46-116); Anion Gap 10.4 mmol/L (3-11); BUN 14 mg/dL (7-18); Bilirubin, Total 0.2 mg/dL (0.2-1.0); C-Reactive Protein 1.22 mg/dL (0.0-0.3); CO2 22.6 mmol/L (21.0-32.0); CREATININE 0.9 mg/dL (0.55-1.02); Calcium 9.8 mg/dL (8.5-10.1); Chloride 100 mmol/L (98-107); Creatine Kinase 75 U/L (26-192); Glucose 80 mg/dL (74-106); Sodium 133 mmol/L (136-145); Total Protein 7.8 g/dL (6.4-8.2)
[2022-03-02 18:26] LABS: Rheumatoid Factor <8.6 IU/mL (<12.0)
[2022-03-03 09:55] LABS: Hepatitis C Ab w Rflx HCV PCR Negative (Negative)
[2022-03-07 13:05] LABS: ANA Interpretation Negative (Negative)
== END 2022-03-01 12:57 | disposition home or self-care (01) ==
LOC: LBO 12:59
PROVIDERS: PCP Nurse Practitioner Acute Care; Visit Provider Nurse Practitioner Acute Care
DX: R53.81 Other malaise; R53.83 Other fatigue; M19.91 Primary osteoarthritis, unspecified site; R74.01 Elevation of levels of liver transaminase levels; M79.7 Fibromyalgia; R82.998 Other abnormal findings in urine
CPT/HCPCS: 36415; 80053; 82550; 85652; 86803; 81003; 81015; 85025; 86038; 86140; 86431

== ENCOUNTER 2022-04-03 01:16 | Outpatient (CLI) | payer MEDICARE, SELFPAY ==
--- NOTE | 2022-04-03 | DI.RAD_ITS ---
Exam(s) XR HIP RT COMPLETE AP PELVIS EXAM: XR HIP RT COMPLETE AP PELVIS CLINICAL HISTORY: RT HIP PAIN,M25.551,RT GROIN PAIN, H/O PRIOR STRESS FX TECHNIQUE: COMPARISON: CR XR HIP LT COMPLETE AP PELVIS from 07/13/2020 FINDINGS: Two views were obtained. No bony or soft tissue abnormality seen. Cartilaginous joint spaces of the hips appear well maintained. IMPRESSION: Negative examination of right hip and pelvis. RADIATION DOSE DELIVERED: Total DLP
== END 2022-04-03 01:36 ==
PROVIDERS: PCP Nurse Practitioner Acute Care; Visit Provider Nurse Practitioner Acute Care
DX: M25.551 Pain in right hip (principal)
CPT/HCPCS: 73502

== ENCOUNTER 2022-05-09 01:01 | Outpatient (CLI) | payer MEDICARE, SELFPAY ==
--- NOTE | 2022-05-09 12:45 | DI.MRI_ITS ---
Exam(s) MR LOWER JOINT RT WO EXAM: MR LOWER JOINT RT WO CLINICAL HISTORY: RT HIP PAIN, M25.551,NORMAL XR,PREVIOUS H/O STRESS FX OF LT HIP TECHNIQUE: Multiplanar multisequence MRI of right hip was performed COMPARISON: No exams were available for comparison FINDINGS: Bones: There is no evidence of avascular necrosis. Along the medial aspect of the right femoral nec k there is mild hyperintense signal seen on the T2 images. No associated hypointense line is seen at this time. No significant joint effusion or labral injury is present. The SI joints and symphysis pubis are well maintained. Musculotendinous structures: Musculotendinous structures demonstrate no abnormality. Intrapelvic str uctures demonstrate no significant abnormality. IMPRESSION: 1. Mild hyperintense signal seen on the T2 weighted images in the medial aspect of the right femoral neck. No associated hypointense line is seen at this time. This may represent edema. The possibili ty of an early stress fracture should be considered. Please correlate clinically. 2. No evidence of avascular necrosis. DATA REPOSITORY:
== END 2022-05-09 01:21 ==
PROVIDERS: PCP Nurse Practitioner Acute Care; Visit Provider Nurse Practitioner Acute Care
DX: M25.551 Pain in right hip (principal)
CPT/HCPCS: 73721

== ENCOUNTER 2022-06-23 00:48 | Outpatient (CLI) | payer MEDICARE, SELFPAY ==
--- NOTE | 2022-06-23 13:15 | DI.NM_ITS ---
Exam(s) NM BONE SCAN 3 PHASE EXAM: AK BONE SCAN 3 PHASE CLINICAL HISTORY: LT HIP PAIN, M25.552, FIBROMYALGIA, M79.7, OSTEOPENIA, M85.80 TECHNIQUE: IV 24.5 millicuries technetium 99 MDP Triple phase/SPECT imaging performed COMPARISON: MR MR LOWER JOINT RT WO from 05/09/2022 CT scan 01/11/2020 FINDINGS: Triple phase study was performed. IMMEDIATE POST INJECTION-FLOW PHASE: (Camera centered over the hips) No asymmetric flow to suggest hyperemia in either hip. IMMEDIATE/EQUILIBRIUM IMAGES: No abnormal uptake in the hips and pelvis. DELAYED 3.5 HOUR IMAGES: No abnormal uptake in the hips and pelvis DELAYED ENTIRE SKELETON IMAGES: No abnormal uptake in the hips and pelvis nor in the entire spinal co lumn. No abnormal uptake in the rib cages and shoulder girdles. No abnormal uptake in the sternum. No abnormal uptake in the upper extremities. No abnormal uptake in the femurs and knees. Below the level of the knees there is some generalized increased uptake in what appears to be soft tissues miller und the left ankle region, of questionable significance. IMPRESSION: 1. No evidence of hip fracture, stress fracture, nor avascular necrosis. 2. Remainder of the entire skeleton is negative for abnormal uptake with the exception of some genera lized increased uptake in the lower left leg around the ankle region. If clinically indicated furthe r study with ankle x-rays can be performed.
== END 2022-06-23 01:08 ==
LOC: DI 00:48
PROVIDERS: PCP Nurse Practitioner Acute Care; Visit Provider Orthopaedic Surgery
DX: M25.552 Pain in left hip (principal); M79.7 Fibromyalgia
CPT/HCPCS: 78315

== ENCOUNTER 2022-10-02 16:11 | Outpatient (REF) | payer MEDICARE, SELFPAY ==
[2022-10-02 20:52] LABS: *AMPHETAMINES SCREEN URINE Positive (Negative); *BARBITURATES SCREEN URINE Negative (Negative); *BENZODIAZEPINES SCREEN URINE Negative (Negative); Cannabinoids THC Negative (Negative); Cocaine Screen,Urine Negative (Negative); METHADONE URINE SCREEN Negative (Negative); OPIATES URINE SCREEN Negative (Negative)
[2022-10-02 20:56] LABS: Tricyclic Antidepressants Negative (Negative)
[2022-10-06 08:59] LABS: Amphetamine Negative ng/mL (Cutoff: 25); Amphetamines Interpretation Negative.; MDA (Ecstasy Metabolite) Negative ng/mL (Cutoff: 25); MDMA (Ecstasy) Negative ng/mL (Cutoff: 25); Methamphetamine Negative ng/mL (Cutoff: 25); Phentermine Negative ng/mL (Cutoff: 25); Pseudoephedrine/Ephedrine Negative ng/mL (Cutoff: 25)
== END 2022-10-02 16:12 | disposition home or self-care (01) ==
LOC: LBN 16:11
PROVIDERS: PCP Nurse Practitioner Acute Care; Visit Provider Internal Medicine Sleep Medicine
DX: Z79.899 Other long term (current) drug therapy (principal); R82.5 Elevated urine levels of drugs, medicaments and biological substances
CPT/HCPCS: 80307; 80324

== ENCOUNTER 2023-02-02 00:33 | Outpatient (CLI) | payer MEDICARE, SELFPAY ==
--- OUTSIDE RECORDS SUMMARY | 2023-02-02 00:35 | XMS_ITS ---
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 2021-03-24 Weight 180 lbs 2021-01-29 Weight 155 lbs 2020-10-13 Weight 129.4 lbs 2019-10-15 Weight 127 lbs 2019-04-07 Weight 130 lbs 2019-03-05 Weight 130 lbs 2019-01-22 Weight 130 lbs 2019-01-07 Weight 133 lbs 2018-12-16 Weight 125 lbs 2018-10-15 Weight 125 lbs 2018-08-07 Weight 125 lbs 2018-08-07 Weight 124 lbs 2018-07-12 Weight 122 lbs 2018-04-16 Weight 120 lb 4 oz lbs 2018-03-20 Weight 126 lbs 2018-02-20 Weight 125 lbs 2017-10-16 Weight 123 lbs 2017-06-12 Weight 108.2 lbs 2017-01-18 Weight 112 lbs 2016-10-26 Weight 106 lbs 2016-08-01 Weight 106 lbs 2016-03-16 Weight 104 lbs 2015-12-16 Weight 105 lbs 2015-09-09 Weight 105 lbs 2015-08-10 Weight 119 lbs 2015-03-10 Weight 123 lbs 2014-11-30 Weight 153 lbs 2014-10-01 Weight 155 lbs 2012-09-11 Weight 155 lbs 2012-09-04 Weight 150 lbs 2012-08-21 Weight 154 lbs 2012-07-15 Weight 154 lbs 2012-06-27 Weight 154 lbs 2012-06-20 Weight 154 lbs 2012-06-11 Weight 155.8 lbs 2012-05-31 Weight 146 lbs 2012-03-11 Weight 148 lbs 2012-02-12 Weight 148 lbs 2012-02-05 Weight 148 lbs 2011-11-21 Weight 146 lbs 2011-10-25 Weight 146.8 lbs 2011-09-28 Weight 144 lbs 2011-09-25 Weight 149.5 lbs 2011-08-04 Weight 141.8 lbs 2011-05-22 Weight 119 lbs 2010-01-06 Temperature 97.0 degrees Fahrenheit Temperature 99.1 degrees Fahrenheit Temperature 97.2 degrees Fahrenheit Temperature 101.0 degrees Fahrenheit 2012-09 Temperature 98.2 degrees Fahrenheit Temperature 98.4 degrees Fahrenheit Temperature 98.9 degrees Fahrenheit Temperature 98.8 degrees Fahrenheit Temperature 99.1 degrees Fahrenheit Temperature 98.7 degrees Fahrenheit Heart Rate 94 /min 2022-05-16 Heart Rate 112 /min 2022-04-25 Heart Rate 110 /min 2021-11-08 Heart Rate 110 /min 2021-03-24 Heart Rate 107 /min 2021-01-29 Heart Rate 92 /min 2019-10-15 Heart Rate 102 /min 2019-04-07 Heart Rate 88 /min 2019-03-05 Heart Rate 866 /min 2019-01-22 Heart Rate 70 /min 2019-01-07 Heart Rate 78 /min 2018-12-16 Heart Rate 87 /min 2018-10-15 Heart Rate 78 /min 2018-08-07 Heart Rate 72 /min 2018-08-07 Heart Rate 85 /min 2018-07-12 Heart Rate 68 /min 2018-04-16 Heart Rate 80 /min 2018-03-20 Heart Rate 100 /min 2018-02-20 Heart Rate 83 /min 2017-10-16 Heart Rate 88 /min 2017-06-12 Heart Rate 97 /min 2017-01-18 Heart Rate 94 /min 2016-10-26 Heart Rate 92 /min 2016-08-01 Heart Rate 96 /min 2016-03-16 Heart Rate 98 /min 2015-12-16 Heart Rate 92 /min 2015-09-09 Heart Rate 88 /min 2015-08-10 Heart Rate 89 /min 2015-03-10 Heart Rate 91 /min 2014-11-30 Heart Rate 98 /min 2014-10-01 Heart Rate 80 /min 2012-09-11 Heart Rate 82 /min 2012-09-04 Heart Rate 76 /min 2012-08-21 Heart Rate 80 /min 2012-07-15 Heart Rate 75 /min 2012-07-01 Heart Rate 77 /min 2012-06-27 Heart Rate 90 /min 2012-06-20 Heart Rate 101 /min 2012-06-11 Heart Rate 89 /min 2012-05-31 Heart Rate 96 /min 2012-03-11 Heart Rate 80 /min 2012-02-12 Heart Rate 88 /min 2012-02-05 Heart Rate 80 /min 2011-11-21 Heart Rate 80 /min 2011-10-25 Heart Rate 82 /min 2011-09-28 Heart Rate 77 /min 2011-09-25 Heart Rate 88 /min 2011-08-04 Heart Rate 86 /min 2011-05-22 Heart Rate 89 /min 2010-05-17 Heart Rate 64 /min 2010-01-06 Oximetry 97 2022-04-25 Oximetry 98 2021-11-08 Oximetry 99 2021-03-24 Oximetry 99 2021-01-29 Oximetry 97 2019-10-15 Oximetry 100 2019-04-07 Oximetry 98 2019-03-05 Oximetry 100 2019-01-22 Oximetry 98 2019-01-07 Oximetry 99 2018-12-16 Oximetry 100 2018-10-15 Oximetry 100 2018-08-07 Oximetry 100 2018-07-12 Oximetry 100 2018-04-16 Oximetry 99 2018-03-20 Oximetry 98 2018-02-20 Oximetry 98 2017-10-16 Oximetry 99 2017-06-12 Oximetry 99 2017-01-18 Oximetry 99 2016-10-26 Oximetry 100 2016-08-01 Oximetry 99 2016-03-16 Oximetry 100 2015-12-16 Oximetry 100 2015-09-09 Oximetry 99 2015-08-10 Oximetry 99 2015-03-10 Oximetry 99 2014-11-30 Oximetry 98 2014-10-01 Oximetry 98 2012-06-11 Oximetry 97 2011-05-22 Respiratory Rate 16 /min 2018-12-16 Respiratory Rate 16 /min 2018-08-07 Respiratory Rate 16 /min 2018-03-20 Respiratory Rate 16 /min 2017-10-16 Respiratory Rate 16 /min 2017-06-12 Respiratory Rate 16 /min 2017-01-18 Respiratory Rate 16 /min 2016-10-26 Respiratory Rate 16 /min 2016-08-01 Respiratory Rate 16 /min 2016-03-16 Respiratory Rate 16 /min 2015-12-16 Respiratory Rate 16 /min 2015-09-09 Respiratory Rate 16 /min 2015-08-10 Respiratory Rate 16 /min 2015-03-10 Respiratory Rate 16 /min 2014-11-30 Respiratory Rate 16 /min 2014-10-01 Respiratory Rate 15 /min 2012-07-01 Respiratory Rate 16 /min 2012-06-20 Respiratory Rate 16 /min 2010-05-17 BMI 30.35 kg/m2 2022-05-16 BMI 30.92 kg/m2 2022-04-25 BMI 31.60 kg/m2 2021-11-08 BMI 32.54 kg/m2 2021-03-24 BMI 32.14 kg/m2 2021-01-29 BMI 27.67 kg/m2 2020-10-13 BMI 23.10 kg/m2 2019-10-15 BMI 22.67 kg/m2 2019-04-07 BMI 23.21 kg/m2 2019-03-05 BMI 23.21 kg/m2 2019-01-22 BMI 23.21 kg/m2 2019-01-07 BMI 23.75 kg/m2 2018-12-16 BMI 22.32 kg/m2 2018-10-15 BMI 22.32 kg/m2 2018-08-07 BMI 22.32 kg/m2 2018-08-07 BMI 22.14 kg/m2 2018-07-12 BMI 21.78 kg/m2 2018-04-16 BMI 21.47 kg/m2 2018-03-20 BMI 22.50 kg/m2 2018-02-20 BMI 22.32 kg/m2 2017-10-16 BMI 21.96 kg/m2 2017-06-12 BMI 19.32 kg/m2 2017-01-18 BMI 20.00 kg/m2 2016-10-26 BMI 18.92 kg/m2 2016-08-01 BMI 18.92 kg/m2 2016-03-16 BMI 18.57 kg/m2 2015-12-16 BMI 18.75 kg/m2 2015-09-09 BMI 18.75 kg/m2 2015-08-10 BMI 21.25 kg/m2 2015-03-10 BMI 21.96 kg/m2 2014-11-30 BMI 27.32 kg/m2 2014-10-01 BMI 26.78 kg/m2 2012-08-21 BMI 27.49 kg/m2 2012-07-15 BMI 27.49 kg/m2 2012-06-20 BMI 27.49 kg/m2 2012-06-11 BMI 26.07 kg/m2 2012-03-11 BMI 27.07 kg/m2 2012-02-12 BMI 27.07 kg/m2 2012-02-05 BMI 27.07 kg/m2 2011-11-21 BMI 26.70 kg/m2 2011-10-25 BMI 26.91 kg/m2 2011-08-04 BMI 21.76 kg/m2 2010-01-06 Blood pressure systolic 128 mm Hg Blood pressure diastolic 90 mm Hg 2022-05 MEDICATIONS Medication Instructions Dosage Frequency Start Date End Date Duration Status Pantoprazole Sodium 40 MG Orally Once daily 30 minutes before supper 1 tablet May, 30 day(s) Active PROCEDURES Procedure Date Ordered Result Body Site URINALYSIS AUTOMATED W Sep 25, 2011 YOSI -PHONE E/M PHYS/QHP 5-10 MIN January 29, 2021 PHONE E/M BY PHYS 11-20 MIN November 05, 2019 EGD BIOPSY SINGLE/MULTIPLE May 25, 2022 YOSI - Flu VACC 6 MONTHS > Jun 11, 2012 URINALYSIS AUTOMATED W Sep 04, 2012 IMMUNIZATION ADMINISTRATION Jun 11, 2012 RAPID STREP TEST CLIA May 31, 2012 FLU VACCINE NO PRESERV May 22, 2011 YOSI -PHONE E/M PHYS/QHP 5-10 MIN January 29, 2021 STATE (VF) IMM ADMIN FIRST May 22, 2011 URINALYSIS AUTOMATED W Oct 25, 2011 REMOVE TONSILS AND ADENOIDS, AGE 12+ YRS Jul 22, 2012 RESULTS Name Result Date Reference Range SURGICAL PATH 2022-05-25 COVID 19 (POS) BinaxNow Ag Card 2021-01- 9 SARS-CoV-2 Negative Urine Multistix (DIP) 2012-09-04 Color lt yellow Clarity sl cloudy Glucose neg Bilirubin neg Ketones neg Specific [place] 1.015 Blood trace ph 7.0 Protein neg Uro 0.2 Nitrates neg Leukocytes small CULTURE URINE 2012-09-04 CULTURE THROAT 2012-06-27 CYTOMEGALOVIRUS ABS (IGG, IG M) ([id number]) 2012-06-27 EBV ACUTE INFECTION ANTIBOIE S ([id number]) 2012-06-11 CBC, WITH MANUAL DIFF 2012-05-31 MANUAL DIFFERENTIAL MANUAL DIFFERENTIAL SEG NEUTROPHILS 66 42-75 BANDS 2 0-6 LYMPHOCYTES 28 20-51 VARIANT LYMPHS <=1 MONOCYTES 4 2-9 EOSINOPHILS 0-3 BASOPHILS 0-1 METAMYELOCYTES MYELOCYTES BLASTS NUCLEATED RBCS PLATELET ESTIMATE ADEQUATE ADEQUATE RBC MORPHOLOGY NORMAL NORMAL ANISOCYTOSIS POIKYLOCYTOSIS MICROCYTOSIS MACROCYTOSIS HYPOCHROMIA POLYCHROMASIA Rapid Strep Screen 2012-05-31 Result neg CULTURE THROAT 2012-05-31 BASIC METABOLIC PROFILE 2011-10-25 Estimated Glom Filt Rate EGFR COMMENT Multiply calculated EGFR by 1.025 for Afro-americans. OSMOLARITY [phone] ANION GAP 6.0 3.0-12.0 BUN/CREATININE RATIO 11.9 8.0-20. 0 CBC, WITH AUTO DIFF 2011-10-25 LIVER PROFILE 2011-10-25 ALBUMIN 3.6 3.5-5.0 GLOBULIN 3.0 2.3-3.5 ALBUMIN/GLOBULIN RATIO 1.2 1.0-2 .5 ALKALINE PHOSPHATASE 91 32-92 Urine Multistix (DIP) 2011-10-25 Color yellow Clarity cloudy Glucose neg Bilirubin neg Ketones trace Specific [place] 1.020 Blood neg ph 7.0 Protein neg Uro 0.2 Nitrates neg Leukocytes small CULTURE URINE 2011-10-25 US ABDOMINAL COMPLETE 2011-10-11 US PELVIC ULTRASOUND 2011-10-11 URINALYSIS COMPLETE 2011-09-25 COLOR Yellow YELLOW CLARITY Clear CLEAR SPECIFIC GRAVITY 1.025 1.000-1.030 pH 5.50 5.00-8.00 PROTEIN Negative NEGATIVE GLUCOSE Negative NEGATIVE KETONES Trace NEGATIVE UROBILINOGEN 0.2 E.U./dL NORMAL BILIRUBIN Negative NEGATIVE BLOOD Negative NEGATIVE LEUKOCYTES Trace NEGATIVE NITRITES Negative NEGATIVE WBCs 10-25 0-5 RBCs 5-10 0-5 SQ. EPITHELIAL CELLS 0-5 0-5 BACTERIA 3+ NONE SEEN CRYSTALS MANY NONE SEEN Urine Multistix (DIP) 2011-09-25 Color dark yellow Clarity cloudy Glucose neg Bilirubin neg Ketones trace Specific [place] >=1.030 Blood neg ph 6.0 Protein neg Uro 0.2 Nitrates neg Leukocytes trace CULTURE URINE 2011-09-25 MRI : Brain without contrast REASON FOR VISIT NCSLEEP 6 MO MED FOLLOW UP, GI-FOLLOW UP EGD, GI-EGD, Rx not sent, NE SLEEP - 6 mo MED F/U, GI- GERD, refill requests, Referral requires override, Prescription, refill requests, refill ritalin/ out today , Medication refills/Will be out tomorrow, Medication refills , NE SLEEP - MED F/U, NCSLEEP 6 mo med fu, change appt type, refill 2 ritalin scripts, 6 MONTH MED F/U, refill both ritalin scripts, Medication refills, Med Refills, refill request, Medication refills (out by Sunday), refill both ritalins, NCLEEP MED F/U, Medication refills , NCLEEP MED F/U, refill Ritalin 10mg, Med refills, [facility]OS[facility] cold symptoms, Med refill, RITALIN refills, Med refill, Called to return voicemail , resend script, RX change Pharmacy, Med refill resent , refill RX, Medication refill- one left , NCSLEEP-med f/u pt. FX her hip unable to come would like a telemed appt., telemed appt, Med refill, *refillRitalin, Medication Question/PHARMACY CALLED, prior auth for med, ? PA done, med question, Ritalin 08/04 PHARMACY CALLS , Prescription issue/PT CALLED-CHANGE PHARMACY, med issue, Ritalin 10mg/2ND CALL, [facility] 3MO MED CHECK, Ritalin , Ritalin Refill, RESCHEDULE, congenital cyst of right pinna, pfp NewConsult, Ritalin script, Ritalin, refills, Ritalin LA, Chart preload, [facility] 6 MO MED CHECK, Adderall Refill, [facility] - f/u, discuss meds. This is a tele-visit owing to the worldwide coronavirus pandemic, ? RX , REFILL, Ritalin Refills, Ritalin Refills, RX Refill, mail letter, refill, [facility] PHONE CALLTO DISCUSS LETTER NEEDED, Letter, [facility] 6 MO MED CHECK., [facility] 6 MO MED CHECK., Ritalin Refill, CHANGE APPOINTMENT, Refill, Refill, refills, GI celiac disease/C diff, Refills, cxed , REfills , [facility]-med f/u, [facility] 3 MO F/U med check, [facility] - 1 mo f/up, ritalin, Ritalin needs refilled, [facility], refill request, refill, refill Ritalin, [facility]-6 mo f/up, [facility]-1 mo f/up DAMASO, refill, Refill/PT CALLED AGAIN, Rx Refill, [facility] MEDICATION, Rx Request Tramadol HCl 50 MG Tablet, refill, [facility]-1 mo f/up, [facility] MEDICATION, Ritalin refills, REFILL, NCC 2 mo fu, Chronic pain, Back pain , Knee pain , [facility]-2 mo f/up pt r/s''d due to conflicting appt, Ritalin refill, resend Tramadol, Ritalin 30mg, n eeds refill Ritalin 10mg, refill, refill, [facility]-1 mo f/up, [facility] 3mo f/up, Ritalin refill, refill, [facility] 2 mo fu-DAMASO, med refill, [facility]-2 mo f/up PT CAR BROKE DOWN, [facility] 3mo f/up, appt/refill, [facility]-2 mo f/up, med refill, Ritalin, refill, refill, refill, [facility]-2 mo f/up, [facility]-2 mo f/up, [facility] 4mof/up, Refill, [facility]-chronic pain, low back pain, fibromyalgia, [facility] NS #1, [facility]-Chronic pain, [facility] 4mo f/up, Ritalin , refills , [facility] 4mo f/up, Ritalin, NCPULM- sleep f/u, Rx, [facility] 2mo f/up , [facility] 4mo f/up, [facility] medication f/u, Rheum referral, symptoms, [facility] 3mo f/up, [facility] sleep f/up, follow up and scrip, [facility] 3mo f/up, Script, work shift, [facility] 3mo f/up, adderall 10 mg, [facility] 3mo f/up,refill, refill, [facility] 4 wk fu, [facility] 3mo f/up, [facility] 3mo f/up, [facility] 3mo f/up, [facility] 6wk F/U, HCAYU4mc f/up, SLEEP STUDY F/U, [facility] SLEEP STUDY F/U, Sleep Study Ready for Review, MSLT, PSG Patient is to come in at 1:00am , [facility] SLEEP , pain contract/surg on 10/21, narcotic contract, surgery, fibromyalgia, refill Triamcinolone CR, Vicodin, uti, status post adenotonsillectomy, wcc, dry rashy skin on face, refill Vicodin, issues with surgery , ENT 1 MONTH FU, ENT FU DISCUS SURGERY, Preop phone call, sore throat localized to the tonsils and adenoids, bilateral persistent otalgia., sore throat, ear discomfort, sore throat, otalgia (right greater than left), sore throat, refill Vicodin, note for school, EBV lab positive/ want ENT referral, kameron results, still not feeling well, pt would like flu shot if cleared from illness, how long until results in , cold/ears/throat hurt, Norethindrone refill, refill Vicodin, Narc contract/PE, PE & college FORM/ NARC CONTRACT PER [facility], horse back riding, In ED Sat at [facility], fever and emesis, Back worse-tingling in feet, Tingling, Norethindrone, back pa in, Seen [facility] ED no records yet, called to request, Hurt back, refill Vicodin, 3 Weeks (Reason: rehcek lactose intolerance), f/u visit, ? restart dairy diet, severe abdominal pain, script refill , urine results, labs, Still with abd pain and urinating alot, Still with abd pain and urinating alot, Nl complete abd US, ?US, F/U UTI ED, fu UTI from ED , medication, UTI, WCC, refill Vicodin, wcc, ? switch ventolin to xopenex, diff. breathing-was on steroid for 1 week (from infection prevention coordinator doctor)., asthma, xopenex & ecw update, ENT NASAL, ENT NASAL, ORTH - L KNEE PAIN, ENT BROKEN NOSE IN JANUARY, ENT BROKEN NOSE IN JANUARY, referral to Peds Neuro, medication, Medication, mri brain, MRI results, Return call to Pt's Mother, medication, MOM'S RESPONSE, Medication , Medicine, daily headaches, EPIFANIO headaches, different script, EPIFANIO headaches, preload emr clinical data Insurance Providers Health Insurance Type Health Plan Insurance Address Health Plan Insurance Phone Health Plan Insurance Name Health Plan Coverage Dates Member ID Patient Relationship to Subscriber Patient Address Patient Phone Patient Name Patient Date of Subscriber ID Subscriber Name Subscriber Date of Group No [place] [address] [facility] [id number] [place] self Sandra Denia Harris 1995 [id number] [facility] [place] [address] [facility] [phone] [facility] [place] self Sandra Velasquezjaneth Harris 1995 [id number] [facility] [address] [facility] [address] [facility] [address] self Sandra Denia Harris [id number] [place] [address] [facility] [address] [place] self Sandra Denia Harris 1995 [id number] [employer] BLUE [address] [facility] [id number] [employer] self Sandra Deniajaneth Harris 1995 [id number] [place] [address] [facility] [address] [place] self Sandra Harris [id number] [address] LUC Browning LUCINDA [id number] [phone] [employer] self Sandra Harris [id number] [place] [address] [facility] [id number] [phone] [place] self Sandra Harris [id number] [employer] [address] [facility] [id number] [employer] self Sandra Harris [id number]
--- NOTE | 2023-02-02 11:26 | DI.RAD_ITS ---
Exam(s) XR CERVICAL SP CAN TRAUMA 2-3V EXAM: XR CERVICAL SP CAN TRAUMA 2-3Vzzzzzz CLINICAL HISTORY: PARESTHESIA LOW EXT,R20.2,? DEGENERATION OR SCOLIOSIS. TECHNIQUE: 2D digital imaging was performed. COMPARISON: No exams were available for comparison FINDINGS: BONES: No fracture or destructive lesion. Vertebral bodies are unremarkable. DISKS: Intervertebral disc spaces are maintained. There is are minimal endplate osteophytes at C5-6. ALIGNMENT: There is straightening of the normal cervical lordosis at C5-6. the odontoid and atlantoax ial articulations are normal. SOFT TISSUE: Normal. The lung apices are clear. IMPRESSION: Mild degenerative changes at C5-6. DATA REPOSITORY: RADIATION DOSE DELIVERED:
--- NOTE | 2023-02-02 11:30 | DI.RAD_ITS ---
Exam(s) XR THORACIC SPINE COMPLETE EXAM: XR THORACIC SPINE COMPLETE CLINICAL HISTORY: PARESTHESIA LOW EXT,R20.2,? DEGENERATION OR SCOLIOSIS. TECHNIQUE: 2D digital imaging was performed. Three views. COMPARISON: No exams were available for comparison FINDINGS: BONES: There is no fracture or destructive lesion. The vertebral bodies and posterior elements are un remarkable. ALIGNMENT: Within normal limits. No visible scoliosis. DISKS: Interverebral disc spaces are maintained. SOFT TISSUE: Visualized lungs are clear. IMPRESSION: Unremarkable radiographs of the thoracic spine. DATA REPOSITORY: RADIATION DOSE DELIVERED:
--- NOTE | 2023-02-02 11:30 | DI.RAD_ITS ---
Exam(s) XR LUMBAR SPINE AP, LAT EXAM: XR LUMBAR SPINE AP, LAT CLINICAL HISTORY: PARESTHESIA OF LOW EXTMR20.2,? DEGENERATION OR SCOLIOSIS. TECHNIQUE: 2D digital imaging was performed. Five views. COMPARISON: CR XR DEXA BONE DENSITY W/WO BERTHA from 05/05/2020 FINDINGS: BONES: No fracture or destructive lesion. Vertebral body heights are maintained. No facet hypertroph y identified. DISKS: Intervertebral disc spaces are maintained. The SI joints and pubic symphysis are unremarkable. Hip joints are maintained. ALIGNMENT: Lumbar spinal alignment is within normal limits. No scoliosis visible. SOFT TISSUE: Normal. IMPRESSION: Unremarkable radiographs of the lumbar spine. DATA REPOSITORY: RADIATION DOSE DELIVERED:
== END 2023-02-02 00:53 ==
LOC: DI 00:33
PROVIDERS: PCP Nurse Practitioner Acute Care; Visit Provider Nurse Practitioner Acute Care
DX: M50.322 Other cervical disc degeneration at C5-C6 level (principal); R20.2 Paresthesia of skin
CPT/HCPCS: 72040; 72072; 72100

== ENCOUNTER 2023-02-16 16:18 | Outpatient (CLI) | payer MEDICARE, SELFPAY ==
[2023-02-16 16:05] LABS: ESR 33 mm/hr (0-20)
[2023-02-16 16:06] LABS: Abs Immature Grans 0.07 10^3/uL (0.0-0.06); Absolute Basophil Count 0.07 10^3/uL (0.0-0.2); Absolute Eosinophil Count 0.07 10^3/uL (0.0-0.7); Absolute Lymphocyte Count 3.38 10^3/uL (1.2-3.4); Absolute Monocyte Count 0.71 10^3/uL (0.1-0.8); Absolute Neutrophil Count 8.83 10^3/uL (1.2-6.7); Basophils % 0.5; Eosinophils % 0.5; HCT 43.7 % (36.0-46.0); HGB 14.7 g/dL (11.2-15.7); Immature Grans % 0.5; Lymphocytes % 25.8; MCH 30.2 pg (27.0-33.0); MCHC 33.6 % (32.0-36.0); MCV 90 fL (80-95); MPV 9.7 fL (8.0-11.0); Monocytes % 5.4; Neutrophils % 67.3; Platelet Count 379 10^3/uL (130-400); RBC 4.87 10^6/uL (3.93-5.22); RDW-SD 39.7 fL; WBC 13.12 10^3/uL (4.4-10.8)
[2023-02-16 16:55] LABS: ALT 41 U/L (14-59); AST 20 U/L (15-37); Albumin 3.7 g/dL (3.4-5.0); Alkaline Phosphatase 71 U/L (46-116); Anion Gap 11.2 mmol/L (3-11); BUN 20 mg/dL (7-18); Bilirubin, Total 0.3 mg/dL (0.2-1.0); CO2 24.8 mmol/L (21.0-32.0); Calcium 9.6 mg/dL (8.5-10.1); Chloride 104 mmol/L (98-107); Glucose 98 mg/dL (74-106); Potassium 4.1 mmol/L (3.5-5.1); Sodium 140 mmol/L (136-145); TSH 1.51 uIU/mL (0.36-3.74)
[2023-02-19 10:17] LABS: Lyme Ab w Rflx to Lyme Confirm Negative (Negative)
== END 2023-02-16 16:19 | disposition home or self-care (01) ==
LOC: LBO 16:18
PROVIDERS: PCP Nurse Practitioner Acute Care; Visit Provider Nurse Practitioner Acute Care
DX: D72.829 Elevated white blood cell count, unspecified (principal); R20.2 Paresthesia of skin
CPT/HCPCS: 36415; 80053; 85652; 84443; 85025; 86140; 86618

== ENCOUNTER 2023-03-22 09:48 | Outpatient (CLI) | payer MEDICARE, SELFPAY ==
--- NOTE | 2023-03-22 | DI.RAD_ITS ---
Exam(s) XR FOOT LT COMPLETE EXAM: XR FOOT LT COMPLETE CLINICAL HISTORY: JOINT PAIN,NEW BONE SPURS,DEFORMITIES,? EARLY OA OR OSTEOPHYTES. TECHNIQUE: 2D digital imaging was performed. Three views. COMPARISON: CR XR FOOT RT COMPLETE from 03/22/2023 FINDINGS: BONES: No acute fracture is present. No bony deformities. No bony destructive lesion is seen. Bon es are normally mineralized. JOINTS: No dislocation present. No joint space narrowing. No periarticular spurring. SOFT TISSUE: Normal. IMPRESSION: Unremarkable radiographs of the left foot. DATA REPOSITORY: RADIATION DOSE DELIVERED:
--- NOTE | 2023-03-22 | DI.RAD_ITS ---
Exam(s) XR HAND LT COMPLETE EXAM: XR HAND LT COMPLETE CLINICAL HISTORY: JOINT PAIN,NEW BONE SPURS,DEFORMITIES,? EARLY OA OR OSTEOPHYTES. TECHNIQUE: 2D digital imaging was performed of the left hand. Three views were obtained. AP, later al and oblique views were obtained. COMPARISON: No exams were available for comparison FINDINGS: BONES: No acute fracture is present. No bony destructive lesion is seen. JOINTS: No dislocation present. SOFT TISSUE: Normal. IMPRESSION: Unremarkable radiographs of the left hand. DATA REPOSITORY: RADIATION DOSE DELIVERED:
--- NOTE | 2023-03-22 | DI.RAD_ITS ---
Exam(s) XR FOOT RT COMPLETE EXAM: XR FOOT RT COMPLETE CLINICAL HISTORY: JOINT PAIN,NEW BONE SPURS,DEFORMITIES,? EARLY OA OR OSTEOPHYTES. TECHNIQUE: 2D digital imaging was performed. Three views. COMPARISON: CR XR FOOT RT COMPLETE from 10/19/2021 FINDINGS: BONES: No acute fracture is present. No bony destructive lesion is seen. No bony deformities. The b ones are normally mineralized. JOINTS: No dislocation present. No joint space narrowing or periarticular spurring. SOFT TISSUE: Normal. IMPRESSION: Unremarkable radiographs of the right foot. DATA REPOSITORY: RADIATION DOSE DELIVERED:
--- NOTE | 2023-03-22 | DI.RAD_ITS ---
Exam(s) XR HAND RT COMPLETE EXAM: XR HAND RT COMPLETE CLINICAL HISTORY: JOINT PAIN,NEW BONE SPURS,DEFORMITIES,? EARLY OA OR OSTEPHYTES. TECHNIQUE: 2D digital imaging was performed. Three views. COMPARISON: CR XR HAND LT COMPLETE from 03/22/2023 FINDINGS: BONES: No acute fracture is present. No bony destructive lesion is seen. No bony deformities. JOINTS: No dislocation present. There is no joint space narrowing. No periarticular spurring. The c arpal alignment is normal. SOFT TISSUE: Normal. IMPRESSION: Unremarkable radiographs of the right hand. DATA REPOSITORY: RADIATION DOSE DELIVERED:
== END 2023-03-22 10:08 ==
LOC: DI 09:55
PROVIDERS: PCP Nurse Practitioner Acute Care; Visit Provider Nurse Practitioner Acute Care
DX: M25.542 Pain in joints of left hand (principal); M25.541 Pain in joints of right hand; M79.672 Pain in left foot; M79.671 Pain in right foot
CPT/HCPCS: 73130; 73630

== ENCOUNTER → 2023-05-01 01:30 | Outpatient (CLI) | payer MEDICARE, SELFPAY ==
--- NOTE | 2023-05-01 | DI.US_ITS ---
Exam(s) US SOFT TISS EXTREMITY/GROIN EXAM: US SOFT TISS EXTREMITY/GROIN CLINICAL HISTORY: SWELLING RT LOWER LEG R44.41 BELOW RT PATELLA. TECHNIQUE: Ultrasound was performed using standard protocol. COMPARISON: No priors for comparison. FINDINGS: Sonographic assessment utilizing grayscale and color Doppler imaging was performed and targeted to th e area of clinical concern. There is a shadowing echogenic focus 5 cm inferior to the patella corresponding to the palpable abnor mality. It measures 1.4 x 0.6 x 0.8 cm. This is nonspecific on this ultrasound. An x-ray of the lo wer leg/knee is recommended for further evaluation. IMPRESSION: DATA REPOSITORY:
== END ==
PROVIDERS: PCP Nurse Practitioner Acute Care; Visit Provider Nurse Practitioner Acute Care
DX: R22.41 Localized swelling, mass and lump, right lower limb (principal)
CPT/HCPCS: 76882

== ENCOUNTER 2023-06-08 21:18 | Outpatient (CLI) | payer MEDICARE, SELFPAY ==
[2023-06-08 16:11] LABS: Abs Immature Grans 0.04 10^3/uL (0.0-0.06); Absolute Monocyte Count 0.65 10^3/uL (0.1-0.8); Absolute Neutrophil Count 6.74 10^3/uL (1.2-6.7); Basophils % 0.3; Eosinophils % 0.9; HGB 14.4 g/dL (11.2-15.7); Immature Grans % 0.3; MCH 30.3 pg (27.0-33.0); MCHC 34.3 % (32.0-36.0); MCV 88 fL (80-95); Monocytes % 5.7; Neutrophils % 58.8; Platelet Count 323 10^3/uL (130-400); RBC 4.76 10^6/uL (3.93-5.22); RDW 12.4 % (11.7-14.6); RDW-SD 40.2 fL; WBC 11.47 10^3/uL (4.4-10.8)
[2023-06-08 16:21] LABS: Absolute Basophil Count 0.03 10^3/uL (0.0-0.2)
[2023-06-08 17:31] LABS: C-Reactive Protein 0.82 mg/dL (0.0-0.3)
[2023-06-11 10:27] LABS: Cyclic Citrullinated Peptide <2.5 U/mL (<5.0)
[2023-06-11 12:48] LABS: ESR (LRH) 25 mm/hr
== END 2023-06-08 21:19 | disposition home or self-care (01) ==
LOC: LBO 21:19
PROVIDERS: PCP Nurse Practitioner Acute Care; Visit Provider Nurse Practitioner Acute Care
DX: D72.829 Elevated white blood cell count, unspecified (principal); M25.50 Pain in unspecified joint
CPT/HCPCS: 36415; 85652; 86200; 85025; 86140

== ENCOUNTER 2024-02-24 01:08 | Emergency (ER) | payer MEDICARE, SELFPAY ==
[2024-02-24 01:14] VITALS: BP 128/86; PULSE 91; RESP 18; TEMP 36.7; O2SAT 97
--- NOTE | 2024-02-24 01:24 | W.ED.GENAD ---
Discharge Plan Disposition Patient Disposition: Home Condition: Good Discharge Details Clinical Impression: Pyelonephritis Primary Care Provider: Tan Noe ED Provider: Yady Martinez Home Meds and New Rx's Prescriptions: New ciprofloxacin HCl [Cipro] 500 mg tablet 500 mg PO Q12H Qty: 26 0RF Continued lisdexamfetamine [Vyvanse] 70 mg capsule 70 mg PO DAILY Sunosi 150 mg tablet 150 mg PO DAILY pregabalin [Lyrica] 150 mg capsule 150 mg PO DAILY Calcium 600 with Vitamin D3 600 mg(1,500mg) -400 unit tablet,chewable 1 tab PO DAILY lamotrigine 25 mg tablet 75 mg PO DAILY propranolol 10 mg tablet 20 mg PO PRN ethynodiol diac-eth estradiol [Kelnor (28)] 1-35 mg-mcg tablet 1 tab PO DAILY Patient Comments: TAKE ONE TABLET BY MOUTH EVERY DAY, TAKE 21 DAYS OF ACTIVE TABLETS THEN SKIP PLACEBOS AND START THE NEXT PACK famotidine 20 mg tablet 20 mg PO BID celecoxib 100 mg capsule 100 mg PO BID Patient Comments: TAKE ONE CAPSULE BY MOUTH TWICE A DAY NEEDED FOR ARTHRITIS spironolactone 100 mg tablet 100 mg PO DAILY Patient Comments: TAKE TWO TABLETS BY MOUTH EVERY DAY amlodipine 10 mg tablet 10 mg PO DAILY Patient Comments: TAKE ONE TABLET BY MOUTH EVERY DAY Discharge Instructions Instructions: Urinary Tract Infection, Adult ED Additional Instructions: Tylenol and ibuprofen over the counter for pain; follow the directions on the bottle. You can continue taking pyridium OTC. Antibiotics twice a day for the next 14 days. Make sure to take them for the full 14 days. Call your primary care doctor on Sunday to schedule an appointment to followup on your visit today. Return to the emergency department for new or worsening symptoms, or if your symptoms do not begin to improve after 24-48 hours. Referrals: Tan Noe [Primary Care Provider] - [facility] General Mode of arrival: ambulatory. Date/Time Provider Initiated Documentation: 02/24/24 01:23. Limitations to Documentation: no limitations. Information obtained by: patient. HPI Narrative: 28yo F presenting with 3-4 days of UTI symptoms (urinary frequency, burning with urination). Initially seemed to improve but then worsened again today, now with constant suprapubic 'burning', hematuria, and left flank pain. Flank pain is dull, constant, and worsening. Took pyridium with minor improvement. No fever, nausea, or vomiting. Otherwise in her usual state of health. Related Data Home Medications Medication Instructions Recorded Confirmed calcium carbonate 600 mg-vitamin 1 tab PO DAILY 07/13/20 02/24/24 D3 10 mcg (400 unit) chewable tablet (Calcium 600 with Vitamin D3) lamotrigine 25 mg tablet 75 mg PO DAILY 07/13/20 02/24/24 propranolol 10 mg tablet 20 mg PO PRN 07/13/20 02/24/24 lisdexamfetamine 70 mg capsule 70 mg PO DAILY 04/05/23 02/24/24 (Vyvanse) pregabalin 150 mg capsule (Lyrica) 150 mg PO DAILY 04/05/23 02/24/24 solriamfetol 150 mg tablet (Sunosi) 150 mg PO DAILY 04/05/23 02/24/24 amlodipine 10 mg tablet 10 mg PO DAILY 02/24/24 02/24/24 celecoxib 100 mg capsule 100 mg PO BID 02/24/24 02/24/24 ciprofloxacin HCl 500 mg tablet 500 mg PO Q12H #26 tabs 02/24/24 (Cipro) ethynodiol diacetate-ethinyl 1 tab PO DAILY 02/24/24 02/24/24 estradiol 1 mg-35 mcg tablet (Kelnor) famotidine 20 mg tablet 20 mg PO BID 02/24/24 02/24/24 spironolactone 100 mg tablet 100 mg PO DAILY 02/24/24 02/24/24 Previous Rx's Medication Instructions Recorded ciprofloxacin HCl 500 mg tablet 500 mg PO Q12H #26 tabs 02/24/24 (Cipro) Allergies Allergy/AdvReac Type Severity Reaction Status Date / Time latex Allergy Severe Anaphylaxis Verified 02/24/24 01:18 sumatriptan [From Imitrex] Allergy Intermediate arm,shoulder Unverified 02/24/24 01:18 pain-head stinging zolpidem tartrate Allergy Intermediate felt Unverified 02/24/24 01:18 [From Ambien] intoxicated cefaclor [From Ceclor] Allergy Unknown unknown Unverified 02/24/24 01:18 Penicillins Allergy Skin Rash Verified 02/24/24 01:18 bupropion AdvReac Intermediate Other (See Verified 02/24/24 01:18 Comment) amoxicillin trihydrate AdvReac Mild Diarrhea Unverified 02/24/24 01:18 [From Augmentin] potassium clavulanate AdvReac Mild Diarrhea Unverified 02/24/24 01:18 [From Augmentin] General Stated Complaint: Urinary KARLO: 3 Review of Systems Narrative: see HPI Exam Narrative Exam Narrative: General: Alert, well appearing, well nourished, in no acute distress. Head: Normocephalic, atraumatic Neck: Trachea midline, ?Neck supple. ENT: ?MMM.? Cardiac: ?RRR, no murmurs appreciated Resp: No respiratory distress. Speaking in full sentences.. Abd: ?Soft, non-distended : ?+ suprapubic tenderness. + L CVA tenderness. Extremities: ?No deformities.? No peripheral edema. Neurologic: GCS 15. ? Moves all extremities freely against gravity Course Vital Signs Vital signs: Vital Signs Temperature 36.7 C 02/24/24 01:14 Pulse 91 H 02/24/24 01:14 Respiratory Rate 18 02/24/24 01:14 Blood Pressure 128/86 02/24/24 01:14 Pulse Oximetry 97 02/24/24 01:14 Temperature 36.7 C 02/24/24 01:14 Temperature Source Skin 02/24/24 01:14 Pulse 91 H 02/24/24 01:14 Respiratory Rate 18 02/24/24 01:14 Respiratory Effort Normal 02/24/24 01:16 Blood Pressure 128/86 02/24/24 01:14 Blood Pressure Position Sitting 02/24/24 01:14 Pulse Oximetry 97 02/24/24 01:14 Oxygen Delivery Method Room Air 02/24/24 01:14 Oxygen Flow Rate 0 02/24/24 01:14 Medical Decision Making 28yo F presenting with 3-4 days of UTI symptoms (urinary frequency, burning with urination), now with left flank pain. Systemically well with no fevers. Vital signs reassuring after arrival (HR borderline at 91 after ambulating into the department). Well appearing on exam, does have suprapubic and left CVA tenderness. Highly suggestive of pyelonephritis. UA + for infection. Labs reviewed as below, CBC with leukocytosis to 17, CMP reassuring with no acidosis, lactate normal. Repeat VS with HR of 82 without intervention. Low suspicion for sepsis. Pt with significant penicillin allergy. Will treat for pyelonephritis with 14 day course of Cipro. Discharged home; discharge instructions and return precautions were reviewed with patient who verbalized understanding. ALl questions were answered and she is in full agreement with the plan. Lab Data Lab results reviewed: Yes I reviewed the patient's lab results. Labs: 02/24/24 01:38 Urine - Reflex from Ua Urine Culture - Pending Laboratory Tests Range/Units 02/24/24 02/24/24 01:38 01:42 WBC (4.4-10.8) 10^3/uL 17.83 H RBC (3.93-5.22) 10^6/uL 4.34 Hgb (11.2-15.7) g/dL 13.4 Hct (36.0-46.0) % 39.8 MCV (80-95) fL 92 MCH (27.0-33.0) pg 30.9 MCHC (32.0-36.0) % 33.7 RDW (11.7-14.6) % 13.5 Plt Count (130-400) 10^3/uL 332 MPV (8.0-11.0) fL 9.8 Immature Gran % % 0.3 Neutrophils % % 64.0 Lymphocytes % % 27.7 Monocytes % % 5.9 Eosinophils % % 1.7 Basophils % % 0.4 Nucleated RBC % (0.0-0.3) % 0.0 Absolute Neutrophils (1.2-6.7) 10^3/uL 11.41 H Absolute Lymphocytes (1.2-3.4) 10^3/uL 4.94 H Absolute Monocytes (0.1-0.8) 10^3/uL 1.05 H Absolute Eosinophils (0.0-0.7) 10^3/uL 0.30 Absolute Basophils (0.0-0.2) 10^3/uL 0.07 VBG Lactate (0.6-1.4) mmol/L 1.1 Sodium (136-145) mmol/L 140 Potassium (3.5-5.1) mmol/L 3.6 Chloride (98-107) mmol/L 103 Carbon Dioxide (21.0-32.0) mmol/L 24.0 Anion Gap (3-11) mmol/L 13.0 H BUN (7-18) mg/dL 13 Creatinine (0.55-1.02) mg/dL 0.8 Est GFR (CKD-EPI 2020) (mL/min/1.73m2) 102.22 Glucose (74-106) mg/dL 103 Calcium (8.5-10.1) mg/dL 8.9 Total Bilirubin (0.2-1.0) mg/dL 0.16 L AST (15-37) U/L 15 ALT (14-59) U/L 38 Alkaline Phosphatase (46-116) U/L 65 Total Protein (6.4-8.2) g/dL 7.4 Albumin (3.4-5.0) g/dL 3.6 Serum HCG, Qual Negative Urine Color (Yellow) Yellow Urine Clarity (Clear) Sl Cloudy Urine pH (5-8) 6.5 Ur Specific [place] (1.005-1.025) >= 1.030 H Urine Protein (Neg-Trace) mg/dL 100 H Urine Ketones (Negative) mg/dL Negative Urine Blood (Negative) Large H Urine Nitrite (Negative) Positive H Urine Bilirubin (Negative) Negative Urine Urobilinogen (Up to 0.2) mg/dL 1.0 H Ur Leukocyte Esterase (Negative) Trace H Urine RBC (0-2) HPF >50 H Urine WBC (0-5) HPF 10-20 H Ur Epithelial Cells (Negative) HPF Few Urine Crystals (Negative) HPF Negative Urine Bacteria (Negative) HPF Few Urine Casts (Negative) LPF Negative Urine Mucus (Negative) Negative Ur Culture Indicated? Yes Urine Glucose (Negative) mg/dL Negative Quality:SDOH Health Related Social Needs: No Data to Display PFSH All Active Problems (Updated 02/24/24 @ 02:37 by Yady Martinez MD) Pyelonephritis (Acute) Femoral neck stress fracture (Acute ~02/2020) Fibromyalgia (Acute) Nicotine dependence (Acute) Depression (Chronic) Grief (Acute) Diarrhea (Acute) Nausea (Acute) Colitis (Acute) Medical History Chronic low back pain Depression Endometriosis GERD (gastroesophageal reflux disease) Lactose intolerance Posttraumatic stress disorder Primary fibromyalgia syndrome Vitamin D deficiency Surgical History Arthroplasty of knee Colonoscopy - MAC Diagnostic Laproscopy Tonsillectomy and adenoidectomy Family History Mother Personal history of malignant neoplasm Social History Smoking/Tobacco Use Status: Current every day Tobacco Type: cigarettes Smoking risk assessment performed?: Yes Alcohol Intake: current Alcohol Intake frequency: holidays/special occasions only Drug use: Occasionally Substance use type: marijuana Current gender identity: female Do you feel safe at home: Yes Do you feel safe in your relationship?: Yes
[2024-02-24 01:43] VITALS: BP 143/90; PULSE 91
[2024-02-24 01:45] VITALS: BP 134/90; PULSE 90
[2024-02-24 01:50] LABS: Lactate 1.1 mmol/L (0.6-1.4)
[2024-02-24 01:53] LABS: Abs Immature Grans 0.06 10^3/uL (0.0-0.06); Absolute Basophil Count 0.07 10^3/uL (0.0-0.2); Absolute Lymphocyte Count 4.94 10^3/uL (1.2-3.4); Absolute Monocyte Count 1.05 10^3/uL (0.1-0.8); Absolute Neutrophil Count 11.41 10^3/uL (1.2-6.7); Basophils % 0.4 %; Eosinophils % 1.7 %; HCT 39.8 % (36.0-46.0); HGB 13.4 g/dL (11.2-15.7); Immature Grans % 0.3 %; Lymphocytes % 27.7 %; MCH 30.9 pg (27.0-33.0); MCHC 33.7 % (32.0-36.0); MCV 92 fL (80-95); MPV 9.8 fL (8.0-11.0); Monocytes % 5.9 %; Platelet Count 332 10^3/uL (130-400); RBC 4.34 10^6/uL (3.93-5.22); RDW 13.5 % (11.7-14.6); RDW-SD 46.5 fL; WBC 17.83 10^3/uL (4.4-10.8)
[2024-02-24 01:54] LABS: Bilirubin Negative (Negative); Blood Large (Negative); Clarity Sl Cloudy (Clear); Glucose Negative (Negative); Ketones Negative (Negative); Leukocyte Esterase Trace (Negative); Nitrite Positive (Negative); Specific Gravity >= 1.030 (1.005-1.025); pH 6.5 (5-8)
[2024-02-24 02:00] VITALS: BP 118/72; PULSE 85
[2024-02-24 02:01] LABS: Bacteria Few HPF (Negative); C & S Indicated? Yes; Casts Negative LPF (Negative); Crystals Negative HPF (Negative); Epithelial Cells Few HPF (Negative); Mucus Negative (Negative); RBC >50 HPF (0-2)
[2024-02-24 02:05] LABS: HCG Qual (Serum) Negative
[2024-02-24 02:09] LABS: ALT 38 U/L (14-59); AST 15 U/L (15-37); Albumin 3.6 g/dL (3.4-5.0); Alkaline Phosphatase 65 U/L (46-116); BUN 13 mg/dL (7-18); Bilirubin, Total 0.16 mg/dL (0.2-1.0); CREATININE 0.8 mg/dL (0.55-1.02); Calcium 8.9 mg/dL (8.5-10.1); Chloride 103 mmol/L (98-107); Estimated GFR 102.22 (mL/min/1.73m2); Glucose 103 mg/dL (74-106); Potassium 3.6 mmol/L (3.5-5.1); Sodium 140 mmol/L (136-145); Total Protein 7.4 g/dL (6.4-8.2)
[2024-02-24 02:15] VITALS: BP 122/73; PULSE 82
[2024-02-24] MEDS: Ciprofloxacin 500 MG TAB PO (02:51)
== END 2024-02-24 03:05 | disposition home or self-care (01) ==
LOC: ER 03:09
PROVIDERS: Emergency Provider Student in an Organized Health Care Education/Training Program; PCP Nurse Practitioner Acute Care
DX: N10 Acute pyelonephritis (principal); F17.210 Nicotine dependence, cigarettes, uncomplicated
CPT/HCPCS: 80053; 99283; 81003; 81015; 83605; 84703; 85025; 87086

== ENCOUNTER 2025-04-16 00:21 | Emergency (ER) | payer MEDICARE, SELFPAY ==
[2025-04-16 00:27] VITALS: PULSE 116; RESP 20; O2SAT 100
--- NOTE | 2025-04-16 00:45 | RT.EKG_ITS ---
APPROVED REPORT Exam: Resting ECG Reason for Exam: tachycardia Patient Location: E HR:91 bpm ECG Measurements Heart Rate 91 AXIS AK 133 P 41 QRSd 93 QRS 35 QT 380 T 6 QTc 469 Conclusion Sinus rhythm...normal P axis, V-rate 60- [address] segment or T wave abnormalities to suggest occlusive CT
--- NOTE | 2025-04-16 00:50 | NUR.NOTE ---
during triage PT would not allow me to get a BP or temp Nursing Note:
--- NOTE | 2025-04-16 00:51 | W.ED.GENAD ---
Discharge Plan Disposition Patient Disposition: Home Condition: Good Discharge Details Clinical Impression: Gastroenteritis Primary Care Provider: Tan Noe ED Provider: Yady Martinez Home Meds and New Rx's Prescriptions: Continued lisdexamfetamine [Vyvanse] 70 mg capsule 70 mg PO DAILY Sunosi 150 mg tablet 150 mg PO DAILY pregabalin [Lyrica] 150 mg capsule 150 mg PO DAILY Calcium 600 with Vitamin D3 600 mg(1,500mg) -400 unit tablet,chewable 1 tab PO DAILY lamotrigine 25 mg tablet 75 mg PO DAILY ethynodiol diac-eth estradiol [Kelnor (28)] 1-35 mg-mcg tablet 1 tab PO DAILY Patient Comments: TAKE ONE TABLET BY MOUTH EVERY DAY, TAKE 21 DAYS OF ACTIVE TABLETS THEN SKIP PLACEBOS AND START THE NEXT PACK famotidine 20 mg tablet 20 mg PO BID celecoxib 100 mg capsule 100 mg PO BID Patient Comments: TAKE ONE CAPSULE BY MOUTH TWICE A DAY NEEDED FOR ARTHRITIS spironolactone 100 mg tablet 100 mg PO DAILY Patient Comments: TAKE TWO TABLETS BY MOUTH EVERY DAY hydroxyzine HCl 10 mg tablet Patient Comments: TAKE ONE TABLET BY MOUTH FOUR TIMES A DAY NEEDED FOR ANXIETY lisdexamfetamine 30 mg capsule Patient Comments: TAKE ONE CAPSULE BY MOUTH EVERY MORNING FOR 30 DAYS epinephrine 0.3 mg/0.3 mL auto-injector Patient Comments: USE DIRECTED albuterol sulfate 90 mcg/actuation HFA aerosol inhaler INHALATION Patient Comments: INHALE TWO PUFFS BY MOUTH EVERY 4-6 HOURS NEEDED loratadine [Claritin] 10 mg tablet 10 mg PO TID Discontinued propranolol 10 mg tablet 20 mg PO PRN Discharge Instructions Instructions: Viral gastroenteritis in adults, Hypokalemia, Epinephrine (Systemic) Additional Instructions: Call your primary care doctor in the morning to schedule an appointment for within the next 48 hours to followup on your visit here. At that visit please discuss your vomiting and diarrhea, as well as your potassium which is low here today. They may want to repeat this bloodwork. Return to the emergency department for new or worsening symptoms including if you are unable to keep down fluids, have chest pain or shortness of breath, palpitations, feel like you are going to pass out, use your epi-pen again, or if you have any other concerns. Discharge Data Discharge Date/Time-TO BE ENTERED AT DEPARTURE: 04/16/25 04:52 HPI General Mode of arrival: ambulatory. Date/Time Provider Initiated Documentation: 04/16/25 00:22. Information obtained by: patient and family. HPI Narrative: 29yo F presenting anxious with pressured speech accompanied by her sister who is concerned about her mental status. Initial history from patient and sister. Difficult to obtain coherent history from patient; she reports using epi pen twice on the drive to her sisters house for lightheadedness and because the 'pressure in my apartment' was causing an allergic reaction and that 'I am hypoxic'. Will not provide medical history, states that '[facility] know my history call them'. Will not answer questions regarding allergies. Sister states that she is not acting like her usual self. Is not sure of patient's medical history however her parents know it well and she called to request they come to the ED. Related Data Home Medications ?Medication ?Instructions ?Recorded ?Confirmed calcium 600 mg (as carbonate)-vit 1 tab PO DAILY 07/13/20 04/16/25 D3 10 mcg (400 unit) chewable tablet (Calcium 600 with Vitamin D3) lamotrigine 25 mg tablet 75 mg PO DAILY 07/13/20 04/16/25 lisdexamfetamine 70 mg capsule 70 mg PO DAILY 04/05/23 04/16/25 (Vyvanse) pregabalin 150 mg capsule (Lyrica) 150 mg PO DAILY 04/05/23 04/16/25 solriamfetol 150 mg tablet (Sunosi) 150 mg PO DAILY 04/05/23 04/16/25 celecoxib 100 mg capsule 100 mg PO BID 02/24/24 04/16/25 ethynodiol diacetate-ethinyl 1 tab PO DAILY 02/24/24 04/16/25 estradiol 1 mg-35 mcg tablet (Kelnor) famotidine 20 mg tablet 20 mg PO BID 02/24/24 04/16/25 spironolactone 100 mg tablet 100 mg PO DAILY 02/24/24 04/16/25 albuterol sulfate 90 mcg/actuation inhalation 04/16/25 aerosol inhaler epinephrine 0.3 mg/0.3 mL 04/16/25 injection, auto-injector hydroxyzine HCl 10 mg tablet mg allergies 04/16/25 lisdexamfetamine 30 mg capsule mg 04/16/25 loratadine 10 mg tablet (Claritin) 10 mg PO TID 04/16/25 04/16/25 Allergies Allergy/AdvReac Type Severity Reaction Status Date / Time latex Allergy Severe Anaphylaxis Verified 04/16/25 00:39 sumatriptan (From Imitrex) Allergy Intermediate arm,shoulder Unverified 04/16/25 00:39 pain-head stinging zolpidem tartrate (From Allergy Intermediate felt Unverified 04/16/25 00:39 Ambien) intoxicated cefaclor (From Ceclor) Allergy Unknown unknown Unverified 04/16/25 00:39 Penicillins Allergy Skin Rash Verified 04/16/25 00:39 bupropion AdvReac Intermediate Other (See Verified 04/16/25 00:39 Comment) amoxicillin trihydrate (From AdvReac Mild Diarrhea Unverified 04/16/25 00:39 Augmentin) potassium clavulanate (From AdvReac Mild Diarrhea Unverified 04/16/25 00:39 Augmentin) General Stated Complaint: PsychEval KARLO: 3 Exam Narrative Exam Narrative: General: Agitated Head: Normocephalic, atraumatic Neck: Trachea midline, ?Neck supple. Cardiac: ?Tachcyardiac, regular. Resp: No respiratory distress. CTAB. Abd: ?Soft, non-distended, nontender : ?No suprapubic tenderness. Extremities: ?No deformities.? No peripheral edema. Neurologic: GCS 15. ? Moves all extremities freely against gravity Psych: Agitated. Well groomed.? Mood shitty, affect congruent.? Speech pressured and slightly loud with normal rythym and tone. Circumstantial speech.? Denies SI/HI/AH/VH. ? Does not appear to be responding to internal stimuli. Mild psychomotor agitation, no abnormal movements noted. Course Vital Signs Vital signs: Vital Signs Pulse 116 H 04/16/25 00:27 Respiratory Rate 20 04/16/25 00:27 Pulse Oximetry 100 04/16/25 00:27 Pulse 116 H 04/16/25 00:27 Respiratory Rate 20 04/16/25 00:27 Pulse Oximetry 100 04/16/25 00:27 Oxygen Delivery Method Room Air 04/16/25 00:27 Oxygen Flow Rate 0 04/16/25 00:27 Pain Level 0 04/16/25 00:27 Medical Decision Making 29yo F presenting anxious with pressured speech accompanied by her sister who is concerned about her mental status. Difficult to obtain coherent history from patient, reports using epi pen twice on the drive to her sisters house for lighteadheness and because the 'pressure in my apartment' was causing an allergic reaction and that 'I am hypoxic'. Agitated on arrival and refusing blood pressure and temp reading. Does accept pulse ox; pulse 110's with O2 sat of 100%. Will not provide medical history, states that '[facility] [place] know my history call them'. Will not answer questions regarding allergies. Able to calm with verbal deescalation, accepted PO ativan and labs. Parents reportedly on the way. Will allow time for onset of ativan and parental support, then obtain clarifying history. Subsequently accepted BP measurement, 142/86. Parents arrived at bedside and patient now more calm on exam; parents state that she is currently acting like her usual self. . Some history of anxiety, depression, and PTDS; no history of jaylene. She is currently being worked up for possible mast cell degranulation, recent negative bone biopsy. She states her symptoms are often triggered by 'pressure' i.e. blood pressure cuff, tourniquet, tight clothing. She is able to further clarify what happened today; began have diarrhea and vomiting at home, was concerned about the air pressure in her house possible triggering symptoms as well as wildfire smoke and so [place] to get south' to her sister. On the drive began to feel lightheaded and short of breath and so used albuterol and also her epi pen twice (has this for anaphalyxis/mast cell response). Some improvement with this. Sister insisted she go to the ED for evaluation; she did not want to go and does not typically go after using her epi pen. She has no hives or wheezing on exam. Abdomen is soft and non-tender, low suspicion for emergent intrabdominal process and I do not feel that she needs a CT scan. She does accept zofran for nausea. Given possible allergic reaction, will give famotidine and Benadryll. Labs reviewed as below, CBC with leukocytosis to 16 (nonspecific), CMP with slight metabolic acidosis with bicarb 19.6 and anion gap elevated at 17.4 as well as hypokelemia with K of 2.4 in the setting of vomiting and diarrhea. Confirmatory K sent and resulted at 3.0; 40meQ oral replacement ordered (patient is on spironolactone),Mg normal, hcg negative (not ), dimer normal (would not further pursue pulmonary embolism with CT scan) . Would like to give IVFB for possible dehydration given V/D and tachycardia; pt refused as she is concerned it may trigger an event. EKG sinus tachycardia, appropriate intervals, no ST segment or T wave abnormalities. CXR with no pneumonia or pneumothorax. On reassessment she is now calm and relaxed. Lungs remain clear, no hives, no further vomiting or diarrhea. HR has improved to 80's. Refuses further lab work and continues to refuse repeat blood pressure, requests discharge home. I suspect her slight acidosis and elevated gap may be due to repeated doses of epi and would prefer to repeat her bloodwork to see if it is improving; she does not consent to this. She has had no signs of anaphylaxis while observed in the ED. She does not appear septic. Overall presentation may represent combination of allergy/mast cell disease, gastroenteritis, anxiety. She is calm, speech not pressured, and demonstrates decision making capacity. No indication to hold her against her will, she demonstrates capacity, and given her improvement in symptoms not unreasonable to discharge home to close outpatient followup with PCP and ongoing followup with her specialists at [facility] and [place]. Discharged home; discharge instructions and return precautions were reviewed with patient who verbalized understanding. All questions were answered and she is in full agreement with the plan. Lab Data Lab results reviewed: Yes I reviewed the patient's lab results. Labs: Laboratory Tests Range/Units 04/16/25 04/16/25 01:00 01:41 WBC (4.4-10.8) 10^3/uL 16.53 H RBC (3.93-5.22) 10^6/uL 4.79 Hgb (11.2-15.7) g/dL 13.4 Hct (36.0-46.0) % 40.3 MCV (80-95) fL 84 MCH (27.0-33.0) pg 28.0 MCHC (32.0-36.0) % 33.3 RDW (11.7-14.6) % 13.1 Plt Count (130-400) 10^3/uL 385 MPV (8.0-11.0) fL 10.0 Immature Gran % % 0.4 Neutrophils % % 62.9 Lymphocytes % % 29.6 Monocytes % % 5.5 Eosinophils % % 1.3 Basophils % % 0.3 Nucleated RBC % (0.0-0.3) % 0.0 Absolute Neutrophils (1.2-6.7) 10^3/uL 10.40 H Absolute Lymphocytes (1.2-3.4) 10^3/uL 4.89 H Absolute Monocytes (0.1-0.8) 10^3/uL 0.91 H Absolute Eosinophils (0.0-0.7) 10^3/uL 0.21 Absolute Basophils (0.0-0.2) 10^3/uL 0.05 D-Dimer (<500) ng/mlFEU 192 Sodium (136-145) mmol/L 140 Potassium (3.5-5.1) mmol/L 2.4 L* 3.0 L Chloride (98-107) mmol/L 103 Carbon Dioxide (21.0-32.0) mmol/L 19.6 L Anion Gap (3-11) mmol/L 17.4 H BUN (7-18) mg/dL 7 Creatinine (0.55-1.02) mg/dL 1.0 Est GFR (CKD-EPI 2020) (mL/min/1.73m2) 77.72 Glucose (74-106) mg/dL 158 H Calcium (8.5-10.1) mg/dL 9.6 Magnesium (1.8-2.4) mg/dL 2.1 Total Bilirubin (0.2-1.0) mg/dL 0.3 AST (15-37) U/L 25 ALT (14-59) U/L 50 Alkaline Phosphatase (46-116) U/L 76 Total Protein (6.4-8.2) g/dL 7.7 Albumin (3.4-5.0) g/dL 3.8 Serum HCG, Qual Negative Add-On Test Request DONE PFSH All Active Problems (Updated 04/16/25 @ 04:28 by Yady Martinez MD) Gastroenteritis (Acute) Femoral neck stress fracture (Acute ~02/2020) Fibromyalgia (Acute) Nicotine dependence (Acute) Depression (Chronic) Grief (Acute) Diarrhea (Acute) Nausea (Acute) Colitis (Acute) Medical History Chronic low back pain Depression Endometriosis GERD (gastroesophageal reflux disease) Lactose intolerance Posttraumatic stress disorder Primary fibromyalgia syndrome Vitamin D deficiency Surgical History Arthroplasty of knee Colonoscopy - MAC Diagnostic Laproscopy Tonsillectomy and adenoidectomy Family History Mother Personal history of malignant neoplasm Social History Smoking/Tobacco Use Status: Current every day Tobacco Type: cigarettes Smoking risk assessment performed?: Yes Alcohol Intake: current Alcohol Intake frequency: holidays/special occasions only Drug use: Occasionally Substance use type: marijuana Current gender identity: female Do you feel safe at home: Yes Do you feel safe in your relationship?: Yes
[2025-04-16] MEDS: LORazepam 1 MG TAB 2 MG PO (01:01)
[2025-04-16 01:09] LABS: Abs Immature Grans 0.07 10^3/uL (0.0-0.06); HCT 40.3 % (36.0-46.0); HGB 13.4 g/dL (11.2-15.7); Immature Grans % 0.4 %; MCH 28.0 pg (27.0-33.0); MCHC 33.3 % (32.0-36.0); MCV 84 fL (80-95); MPV 10.0 fL (8.0-11.0); Platelet Count 385 10^3/uL (130-400); RBC 4.79 10^6/uL (3.93-5.22); RDW 13.1 % (11.7-14.6); RDW-SD 39.9 fL; WBC 16.53 10^3/uL (4.4-10.8)
[2025-04-16 01:28] LABS: HCG Qual (Serum) Negative
[2025-04-16 01:31] LABS: ALT 50 U/L (14-59); AST 25 U/L (15-37); Albumin 3.8 g/dL (3.4-5.0); Alkaline Phosphatase 76 U/L (46-116); Anion Gap 17.4 mmol/L (3-11); BUN 7 mg/dL (7-18); Bilirubin, Total 0.3 mg/dL (0.2-1.0); CO2 19.6 mmol/L (21.0-32.0); Calcium 9.6 mg/dL (8.5-10.1); Chloride 103 mmol/L (98-107); Estimated GFR 77.72 (mL/min/1.73m2); Glucose 158 mg/dL (74-106); Sodium 140 mmol/L (136-145); Total Protein 7.7 g/dL (6.4-8.2)
[2025-04-16 01:34] LABS: Potassium 2.4 mmol/L (3.5-5.1)
[2025-04-16 01:47] LABS: D-Dimer 192 ng/mlFEU (<500)
[2025-04-16 02:01] LABS: Potassium 3.0 mmol/L (3.5-5.1)
[2025-04-16] MEDS: Famotidine 20 MG TAB 40 MG PO (02:01)
[2025-04-16] MEDS: diphenhydrAMINE 25 MG CAP 50 MG PO (02:02)
[2025-04-16] MEDS: Lactated Ringers 1,000 ML 1000 ML IV (02:25)
[2025-04-16 02:33] LABS: Lab Add On Test DONE
[2025-04-16 02:34] VITALS: BP 142/86; PULSE 88; RESP 22; O2SAT 98
[2025-04-16 02:46] LABS: Magnesium 2.1 mg/dL (1.8-2.4)
[2025-04-16] MEDS: Ondansetron O.D.T. 4 MG TABEF PO (02:49)
--- NOTE | 2025-04-16 03:10 | DI.RAD_ITS ---
Exam(s) XR CHEST 2V PA LATERAL EXAM: XR CHEST 2V PA LATERAL CLINICAL HISTORY: short of breath TECHNIQUE: 2D digital imaging was performed. Two views. COMPARISON: CR CHEST 2 VIEWS PA,LAT from 02/24/2012 FINDINGS: HEART: Normal size. Aorta: Not dilated. PULMONARY VASCULATURE: Normal. MEDIASTINUM: Unremarkable. LUNGS: Clear. PLEURAL SPACE: No pleural effusion or pneumothorax. BONE:Unremarkable for age. SOFT TISSUES: Unremarkable. IMPRESSION: No acute abnormality. DATA REPOSITORY: RADIATION DOSE DELIVERED:
--- NOTE | 2025-04-16 03:27 | DI.VRAD_ITS ---
PROCEDURE INFORMATION: Exam: XR Chest Exam date and time: 04/16/2025 3:06 AM Age: 29 years old Clinical indication: Shortness of breath TECHNIQUE: Imaging protocol: Radiologic exam of the chest. Views: 2 views. COMPARISON: No relevant prior studies are available for comparison. FINDINGS: Lungs: No focal consolidation seen. Pleural spaces: No large pleural effusion seen. Heart/Mediastinum: No cardiomegaly. Bones/joints: No acute abnormality. IMPRESSION: No acute findings to explain reported symptoms. Dictated and Authenticated by: Alyssa Woods MD. Orderin Michelle Conteh MD
--- NOTE | 2025-04-16 04:09 | NUR.NOTE ---
PT is refusing VS at this time Nursing Note:
[2025-04-16] MEDS: Potassium Chloride 20 MEQ TABCR 40 MEQ PO (04:31)
[2025-04-16 04:50] VITALS: PULSE 85; RESP 18; O2SAT 97
== END 2025-04-16 04:52 | disposition home or self-care (01) ==
LOC: ER 05:09
PROVIDERS: Emergency Provider Student in an Organized Health Care Education/Training Program; PCP Nurse Practitioner Acute Care
DX: K52.9 Noninfective gastroenteritis and colitis, unspecified (principal)
CPT/HCPCS: 99283; 99284; 80053; 93005; 96360; 71046; 83735; 84132; 84703; 85025; 85379; 93010